=== PATIENT | male | born 1935 | race Caucasian/White ===

== ENCOUNTER → 2016-08-01 | Outpatient (CLI) | payer MEDICARE | LOC: M SMT 09:39 | PROVIDERS: ATTEND Urology | DX: Z85.46 Personal history of malignant neoplasm of prostate (principal) ==

== ENCOUNTER → 2016-12-07 | Outpatient (CLI) | payer MEDICARE | LOC: M SMT 10:40 | PROVIDERS: ATTEND Urology | DX: Z85.46 Personal history of malignant neoplasm of prostate (principal); E11.9 Type 2 diabetes mellitus without complications; R60.9 Edema, unspecified ==

== ENCOUNTER → 2016-12-07 | Outpatient (CLI) | payer MEDICARE ==
[2016-12-07 13:57] LABS: ALBUMIN 3.4 GM/DL (3.2-5.2); ALBUMIN/GLOBULIN RATIO 0.97 (1.00-1.93); BILIRUBIN,TOTAL 0.6 MG/DL (0.2-1.0); CALCIUM LEVEL 8.2 MG/DL (8.8-10.2); CREATININE FOR GFR 1.79 MG/DL (0.70-1.30); GLOMERULAR FILTRATION RATE 39.1 (>35); POTASSIUM SERUM 4.7 MEQ/L (3.5-5.1); TOTAL PROTEIN 6.9 GM/DL (6.4-8.2)
== END ==
LOC: M SMT 10:37
PROVIDERS: ATTEND Family Medicine
DX: R60.9 Edema, unspecified (principal); E11.9 Type 2 diabetes mellitus without complications

== ENCOUNTER → 2017-04-09 | Outpatient (CLI) | payer MEDICARE | LOC: M SMT 10:09 | PROVIDERS: ATTEND Urology | DX: Z08 Encounter for follow-up examination after completed treatment for malignant neoplasm (principal); Z85.46 Personal history of malignant neoplasm of prostate ==

== ENCOUNTER → 2017-04-13 | Outpatient (REF) | payer MEDICARE | LOC: M LAB REF 16:09 | PROVIDERS: ATTEND Physician Assistant | DX: L03.032 Cellulitis of left toe (principal) ==

== ENCOUNTER → 2017-06-27 | Outpatient (CLI) | payer MEDICARE ==
--- NOTE | 2017-06-30 12:24 | SLEEPCENT ---
DATE OF PROCEDURE: 06/27/2017 REFERRING PHYSICIAN: Rafael Long MD Nocturnal polysomnography was performed for retitration of pressure therapy in this patient with obstructive sleep apnea syndrome who has gained significant weight and has been found to have an abnormal nocturnal recording oximetry trace despite the use of CPAP. For testing, the patient was fit with a Cequint Simplus full face mask of medium size, 10 cm of water pressure was applied to the circuit and the lights were extinguished. 7 hours and 37 minutes of data were reviewed. There were 339 minutes of sleep identified. Sleep latency was short at 14 minutes. Rapid eye movement (REM) sleep was not achieved. Sleep architecture showed poor progression and some fragmentation. Overall sleep efficiency was 76%. The electrocardiogram showed what appeared to be atrial fibrillation with irregular irregularity and an average ventricular response rate of 52 beats per minute. EEG showed reasonably normal waveforms for awake and sleep. There was some increase in background activity. No focal events were identified. Also some increase in eye movement artifact, possibly medication related. Persistence of respiratory events prompted increases in CPAP pressure. The events were primarily hypopneic, but did have associated oxygen desaturations. Supplemental oxygen was added to address hypoventilatory oxygen desaturations. Best sleep is difficult to identify as the patient continued to experience hypopneic events despite CPAP at a pressure of 20. Reasonable palliation of respiratory events was however seen with a CPAP pressure of 20 and oxygen desaturations were not seen with supplemental oxygen at flow rate of 3 liters per minute. There were frequent limb events early in the study. Later in the test with increases in CPAP pressure, limb activity modulated and though the limb movement arousal index was fixed, there were few trains of events after adequate airway support was achieved. IMPRESSION: Obstructive sleep apnea syndrome (G47.33). RECOMMENDATION: Increase in CPAP to 20 cm with the addition of 3 liters of oxygen entrained through the circuit should be sufficient to minimize respiratory disruption and oxygen desaturation. Pending tolerance of this pressure, further adjustment may be necessary. A range of 18 to 20 appears reasonably acceptable.
== END ==
LOC: M SLEEP 19:25
PROVIDERS: ATTEND Nurse Practitioner Adult Health
DX: G47.33 Obstructive sleep apnea (adult) (pediatric) (principal)

== ENCOUNTER → 2017-09-18 | Outpatient (CLI) | payer MEDICARE ==
[2017-09-18 14:31] LABS: PROSTATIC SPECIFIC AG MONITOR 1.65 NG/ML (< 4.0)
== END ==
LOC: M SMT 10:32
DX: Z85.46 Personal history of malignant neoplasm of prostate (principal)

== ENCOUNTER → 2017-09-18 | Outpatient (CLI) | payer MEDICARE ==
[2017-09-18 14:32] LABS: ALBUMIN 3.4 GM/DL (3.2-5.2); ALBUMIN/GLOBULIN RATIO 0.97 (1.00-1.93); ALKALINE PHOSPHATASE 127 U/L (45-117); ALT/SGPT 19 U/L (12-78); ANION GAP 10 MEQ/L (8-16); AST/SGOT 8 U/L (7-37); BILIRUBIN,TOTAL 0.4 MG/DL (0.2-1.0); BLOOD UREA NITROGEN 27 MG/DL (7-18); CALCIUM LEVEL 9.1 MG/DL (8.8-10.2); CARBON DIOXIDE LEVEL 26 MEQ/L (21-32); CHLORIDE LEVEL 107 MEQ/L (98-107); CHOLESTEROL LEVEL 165 MG/DL (<200); CHOLESTEROL RISK RATIO 2.538 (<5); CREATININE FOR GFR 1.85 MG/DL (0.70-1.30); GLOMERULAR FILTRATION RATE 37.5 (>35); GLUCOSE, FASTING 169 MG/DL (70-100); HDL CHOLESTEROL 65 MG/DL (>40); LDL CHOLESTEROL 70.8 MG/DL (<100); NON-HDL-C 100 MG/DL; SODIUM LEVEL 143 MEQ/L (136-145); TOTAL PROTEIN 6.9 GM/DL (6.4-8.2); TRIGLYCERIDES LEVEL 146 MG/DL (<150); URIC ACID 7.7 MG/DL (3.5-7.2)
[2017-09-18 14:34] LABS: HEMATOCRIT 35.1 % (42.0-52.0); HEMOGLOBIN 10.5 g/dl (14.0-18.0); MEAN CORPUSCULAR HEMOGLOBIN 20.8 pg (27.0-33.0); MEAN CORPUSCULAR HGB CONC 29.9 g/dl (32.0-36.5); MEAN CORPUSCULAR VOLUME 69.6 fl (80.0-96.0); PLATELET COUNT, AUTOMATED 233 10^3/uL (150-450); RED BLOOD COUNT 5.04 10^6/uL (4.30-6.10); RED CELL DISTRIBUTION WIDTH 15.9 % (11.5-14.5); WHITE BLOOD COUNT 5.8 10^3/uL (4.0-10.0)
[2017-09-18 14:50] LABS: TOTAL 25(OH) VITAMIN D 20.9 NG/ML (30.0-100.0)
[2017-09-18 15:15] LABS: ESTIMATED AVERAGE GLUCOSE 180 MG/DL (60-110); HEMOGLOBIN A1c 7.9 %
== END ==
LOC: M SMT 10:38
DX: E55.9 Vitamin D deficiency, unspecified (principal); E11.9 Type 2 diabetes mellitus without complications; M10.9 Gout, unspecified; Z85.46 Personal history of malignant neoplasm of prostate
CPT/HCPCS: 84550

== ENCOUNTER → 2017-11-27 | Outpatient (CLI) | payer MEDICARE ==
[2017-11-27 14:37] LABS: ANION GAP 8 MEQ/L (8-16); BLOOD UREA NITROGEN 38 MG/DL (7-18); CALCIUM LEVEL 9.2 MG/DL (8.8-10.2); CARBON DIOXIDE LEVEL 26 MEQ/L (21-32); CHLORIDE LEVEL 106 MEQ/L (98-107); CREATININE FOR GFR 1.94 MG/DL (0.70-1.30); GLOMERULAR FILTRATION RATE 35.5 (>35); GLUCOSE, FASTING 206 MG/DL (70-100); SODIUM LEVEL 140 MEQ/L (136-145)
[2017-11-27 14:58] LABS: POTASSIUM SERUM 5.2 MEQ/L (3.5-5.1)
== END ==
LOC: M SMT 10:40
DX: R60.9 Edema, unspecified (principal)
CPT/HCPCS: 80048

== ENCOUNTER → 2018-04-04 | Outpatient (CLI) | payer MEDICARE ==
[2018-04-04 19:17] LABS: PROSTATIC SPECIFIC AG MONITOR 1.62 NG/ML (< 4.0)
== END ==
LOC: M SMT 10:41
DX: C61 Malignant neoplasm of prostate (principal)
CPT/HCPCS: 84153

== ENCOUNTER → 2018-04-29 | Outpatient (CLI) | payer MEDICARE ==
[2018-04-29 13:54] LABS: BASO # 0.1 10^3/uL (0.0-0.2); BASO % 0.9 % (0.0-1.0); EOS # 0.3 10^3/uL (0.0-0.50); EOS % 4.3 % (0.0-3.0); HEMATOCRIT 36.6 % (42.0-52.0); HEMOGLOBIN 10.9 g/dl (13.5-17.5); IMMATURE GRANULOCYTE % 0.3 % (0-3.0); LYMPH # 1.5 10^3/uL (1.5-4.5); LYMPH % 26.1 % (24.0-44.0); MEAN CORPUSCULAR HEMOGLOBIN 21.2 pg (27.0-33.0); MEAN CORPUSCULAR HGB CONC 29.8 g/dl (32.0-36.5); MEAN CORPUSCULAR VOLUME 71.3 fl (80.0-96.0); MONO # 0.5 10^3/uL (0.0-0.8); NEUTROPHILS # 3.4 10^3/uL (1.8-7.7); NEUTROPHILS % 59.4 % (36.0-66.0); PLATELET COUNT, AUTOMATED 172 10^3/uL (150-450); RED BLOOD COUNT 5.13 10^6/uL (4.30-6.10); RED CELL DISTRIBUTION WIDTH 15.8 % (11.5-14.5); WHITE BLOOD COUNT 5.8 10^3/uL (4.0-10.0)
[2018-04-29 14:27] LABS: ESTIMATED AVERAGE GLUCOSE 174 MG/DL (60-110); HEMOGLOBIN A1c 7.7 %
[2018-04-29 14:35] LABS: ALBUMIN 3.7 GM/DL (3.2-5.2); ALBUMIN/GLOBULIN RATIO 1.06 (1.00-1.93); ALKALINE PHOSPHATASE 98 U/L (45-117); ALT/SGPT 37 U/L (12-78); ANION GAP 10 MEQ/L (8-16); AST/SGOT 22 U/L (7-37); BILIRUBIN,TOTAL 0.4 MG/DL (0.2-1.0); BLOOD UREA NITROGEN 50 MG/DL (7-18); CALCIUM LEVEL 8.8 MG/DL (8.8-10.2); CARBON DIOXIDE LEVEL 17 MEQ/L (21-32); CHLORIDE LEVEL 114 MEQ/L (98-107); CHOLESTEROL LEVEL 203 MG/DL (<200); CHOLESTEROL RISK RATIO 3.383 (<5); CREATININE FOR GFR 2.27 MG/DL (0.70-1.30); GLOMERULAR FILTRATION RATE 29.6 (>35); GLUCOSE, FASTING 144 MG/DL (70-100); HDL CHOLESTEROL 60 MG/DL (>40); LDL CHOLESTEROL 112 MG/DL (<100); NON-HDL-C 143 MG/DL; POTASSIUM SERUM 5.5 MEQ/L (3.5-5.1); SODIUM LEVEL 141 MEQ/L (136-145); TOTAL PROTEIN 7.2 GM/DL (6.4-8.2); TRIGLYCERIDES LEVEL 153 MG/DL (<150)
[2018-04-29 15:05] LABS: TOTAL 25(OH) VITAMIN D 23.8 NG/ML (30.0-100.0)
== END ==
LOC: M SMT 09:25
DX: E55.9 Vitamin D deficiency, unspecified (principal); E11.9 Type 2 diabetes mellitus without complications; R60.9 Edema, unspecified; Z79.899 Other long term (current) drug therapy
CPT/HCPCS: 80053

== ENCOUNTER 2018-05-20 09:58 | Emergency (ER) | payer MEDICARE | END 2018-05-20 13:59 | disposition home or self-care (01) | LOC: M ED 09:58 | DX: S82.435A Nondisplaced oblique fracture of shaft of left fibula, initial encounter for closed fracture (principal); W19.XXXA Unspecified fall, initial encounter; Y92.511 Restaurant or cafe as the place of occurrence of the external cause; E11.9 Type 2 diabetes mellitus without complications; I10 Essential (primary) hypertension; E78.5 Hyperlipidemia, unspecified; D64.9 Anemia, unspecified; F32.9 Major depressive disorder, single episode, unspecified; Z85.46 Personal history of malignant neoplasm of prostate; F17.200 Nicotine dependence, unspecified, uncomplicated; Z88.0 Allergy status to penicillin; Z79.899 Other long term (current) drug therapy; Z79.84 Long term (current) use of oral hypoglycemic drugs; Z79.51 Long term (current) use of inhaled steroids | CPT/HCPCS: 73610 ==

== ENCOUNTER 2018-06-04 07:32 | Inpatient (IN) | payer MEDICARE ==
[2018-06-04] MEDS: NIFEdipine 30 MG XL TAB PO (09:00)
[2018-06-04] MEDS: VANCOMYCIN HCL 1,000 MG, VIAL MATE ADAPTER 1 EACH in D5W 250 ML IV ×2 (11:30→14:16)
[2018-06-04] MEDS: NS 1,000 ML IV ×2 (11:54→22:48)
[2018-06-04] MEDS ORDERED: GLUCOSE 4 GM CHEW TABLET PO (12:00)
[2018-06-04] MEDS ORDERED: DEXTROSE 50% 50 ML SYRINGE IV (12:00)
[2018-06-04] MEDS ORDERED: GLUCAGON FOR INJ 1 MG VIAL (J1610) SC (12:00)
[2018-06-04 12:19] LABS: HEMATOCRIT 32.8 % (42.0-52.0); HEMOGLOBIN 9.7 g/dl (13.5-17.5); MEAN CORPUSCULAR HEMOGLOBIN 21.1 pg (27.0-33.0); MEAN CORPUSCULAR HGB CONC 29.6 g/dl (32.0-36.5); MEAN CORPUSCULAR VOLUME 71.3 fl (80.0-96.0); PLATELET COUNT, AUTOMATED 163 10^3/uL (150-450); RED CELL DISTRIBUTION WIDTH 15.8 % (11.5-14.5); WHITE BLOOD COUNT 4.9 10^3/uL (4.0-10.0)
[2018-06-04 12:46] LABS: ANION GAP 8 MEQ/L (8-16); BLOOD UREA NITROGEN 28 MG/DL (7-18); CALCIUM LEVEL 8.7 MG/DL (8.8-10.2); CARBON DIOXIDE LEVEL 25 MEQ/L (21-32); CHLORIDE LEVEL 110 MEQ/L (98-107); CREATININE FOR GFR 1.73 MG/DL (0.70-1.30); GLOMERULAR FILTRATION RATE 40.5 (>35); GLUCOSE, FASTING 128 MG/DL (70-100); POTASSIUM SERUM 4.3 MEQ/L (3.5-5.1); SODIUM LEVEL 143 MEQ/L (136-145)
[2018-06-04] MEDS ORDERED: fentaNYL 100 MCG/2 ML INJECTION (J3010) As Ordered (15:30)
[2018-06-04] MEDS ORDERED: MIDAZOLAM INJ 2 MG/2 ML VIAL (J2250) As Ordered (15:30)
[2018-06-04] MEDS ORDERED: BUPIVACAINE/DEXTROSE 0.75% 2 ML AMP As Ordered (15:33)
[2018-06-04] MEDS: CLINDAMYCIN 600 MG/50 ML PREMIX BAG As Ordered (16:10)
[2018-06-04] MEDS: LR 1,000 ML IV (17:00)
[2018-06-04] MEDS ORDERED: ONDANSETRON 4MG/2ML VIAL (J2405) IV (17:00)
[2018-06-04] MEDS ORDERED: METOCLOPRAMIDE INJ 10MG/2ML VIAL (J2765) IV (17:00)
[2018-06-04] MEDS ORDERED: fentaNYL 100 MCG/2 ML INJECTION (J3010) IV (17:00)
[2018-06-04] MEDS ORDERED: FLEET ENEMA PR (17:00)
[2018-06-04] MEDS ORDERED: ACETAMINOPHEN TAB 650MG DOSE (2X325MG) PO (17:00)
[2018-06-04 17:04] LABS: BEDSIDE GLUCOSE 130 MG/DL (83-110)
[2018-06-04] MEDS ORDERED: PERCOCET 5MG/325MG TAB As Ordered (17:14)
[2018-06-04] MEDS: PERCOCET 5MG/325MG TAB PO (17:15)
[2018-06-04] MEDS: HumaLOG INSULIN (NovoLOG) PER UNIT SC ×2 (18:43→21:00)
[2018-06-04] MEDS: VENLAFAXINE **XR** 75MG CAPSULE PO (18:44)
[2018-06-04] MEDS: FLUoxetine 20 MG CAP PO (18:44)
[2018-06-04] MEDS: ENALAPRIL MALEATE 10 MG TAB PO (18:44)
[2018-06-04] MEDS: NORCO, ANEXSIA 5/325MG TABLET (HYDROcodone/ACETAMINOPHEN) PO ×2 (18:45→23:06)
[2018-06-04] MEDS: MORPHINE 4 MG/ML 1ML VIAL/SYRINGE (J2270) IV (19:35)
[2018-06-04 21:16] LABS: BEDSIDE GLUCOSE 144 MG/DL (83-110)
[2018-06-04] MEDS: TEMAZEPAM 15 MG CAP PO (22:47)
[2018-06-05] MEDS: VANCOMYCIN HCL 1,000 MG, VIAL MATE ADAPTER 1 EACH in D5W 250 ML IV ×4 (02:24→15:00)
[2018-06-05] MEDS: MORPHINE 4 MG/ML 1ML VIAL/SYRINGE (J2270) IV ×2 (02:26→09:53)
[2018-06-05 06:34] LABS: HEMATOCRIT 31.9 % (42.0-52.0); HEMOGLOBIN 9.3 g/dl (13.5-17.5); MEAN CORPUSCULAR HEMOGLOBIN 21.1 pg (27.0-33.0); MEAN CORPUSCULAR HGB CONC 29.2 g/dl (32.0-36.5); MEAN CORPUSCULAR VOLUME 72.5 fl (80.0-96.0); PLATELET COUNT, AUTOMATED 171 10^3/uL (150-450); RED CELL DISTRIBUTION WIDTH 15.6 % (11.5-14.5); WHITE BLOOD COUNT 6.8 10^3/uL (4.0-10.0)
[2018-06-05] MEDS: NORCO, ANEXSIA 5/325MG TABLET (HYDROcodone/ACETAMINOPHEN) PO (06:39)
[2018-06-05 06:57] LABS: ANION GAP 5 MEQ/L (8-16); BLOOD UREA NITROGEN 25 MG/DL (7-18); CALCIUM LEVEL 8.7 MG/DL (8.8-10.2); CARBON DIOXIDE LEVEL 28 MEQ/L (21-32); CHLORIDE LEVEL 106 MEQ/L (98-107); CREATININE FOR GFR 1.85 MG/DL (0.70-1.30); GLOMERULAR FILTRATION RATE 37.4 (>35); GLUCOSE, FASTING 185 MG/DL (70-100); POTASSIUM SERUM 4.4 MEQ/L (3.5-5.1); SODIUM LEVEL 139 MEQ/L (136-145)
[2018-06-05] MEDS: HumaLOG INSULIN (NovoLOG) PER UNIT SC ×4 (07:49→20:37)
[2018-06-05] MEDS: SPIRONOLACTONE 25 MG TAB PO ×2 (09:00→09:44)
[2018-06-05] MEDS: FUROSEMIDE 20 MG TAB PO ×2 (09:00→09:44)
[2018-06-05] MEDS: ENALAPRIL MALEATE 10 MG TAB PO (09:43)
[2018-06-05] MEDS: MOM 30ML SUSPENSION UDC PO (09:43)
[2018-06-05] MEDS: VENLAFAXINE **XR** 75MG CAPSULE PO (09:43)
[2018-06-05] MEDS: MIRALAX *UNIT DOSE* 17GM PACKET PO (09:43)
[2018-06-05] MEDS: FLUoxetine 20 MG CAP PO (09:44)
[2018-06-05] MEDS: SENOKOT S TAB PO ×2 (09:45→20:37)
[2018-06-05] MEDS: OMEPRAZOLE 20 MG CAP PO (09:45)
[2018-06-05] MEDS: NIFEdipine 30 MG XL TAB PO (11:00)
[2018-06-05 12:04] LABS: BEDSIDE GLUCOSE 152 MG/DL (83-110)
[2018-06-05] MEDS: IPRATROPIUM 0.5MG/ALBUTEROL 2.5MG INH SOL UD 3ML (DUONEB)(J7620) NEB (13:26)
[2018-06-05 16:45] LABS: BEDSIDE GLUCOSE 171 MG/DL (83-110)
[2018-06-05] MEDS: RIVAROXABAN 10 MG TAB (XARELTO) PO (17:18)
[2018-06-05 20:25] LABS: BEDSIDE GLUCOSE 163 MG/DL (83-110)
[2018-06-05] MEDS: TEMAZEPAM 15 MG CAP PO (20:38)
[2018-06-05] MEDS: ATORVASTATIN 20 MG TAB PO (20:38)
[2018-06-06 07:24] LABS: HEMATOCRIT 30.6 % (42.0-52.0); MEAN CORPUSCULAR HEMOGLOBIN 21.2 pg (27.0-33.0); MEAN CORPUSCULAR HGB CONC 29.4 g/dl (32.0-36.5); PLATELET COUNT, AUTOMATED 144 10^3/uL (150-450); RED BLOOD COUNT 4.25 10^6/uL (4.30-6.10); RED CELL DISTRIBUTION WIDTH 15.5 % (11.5-14.5); WHITE BLOOD COUNT 6.6 10^3/uL (4.0-10.0)
[2018-06-06 07:50] LABS: ANION GAP 6 MEQ/L (8-16); BLOOD UREA NITROGEN 30 MG/DL (7-18); CALCIUM LEVEL 8.6 MG/DL (8.8-10.2); CARBON DIOXIDE LEVEL 27 MEQ/L (21-32); CHLORIDE LEVEL 107 MEQ/L (98-107); GLOMERULAR FILTRATION RATE 32.3 (>35); GLUCOSE, FASTING 130 MG/DL (70-100); POTASSIUM SERUM 4.3 MEQ/L (3.5-5.1); SODIUM LEVEL 140 MEQ/L (136-145)
[2018-06-06] MEDS: SPIRONOLACTONE 25 MG TAB PO (08:36)
[2018-06-06] MEDS: ENALAPRIL MALEATE 10 MG TAB PO (08:36)
[2018-06-06] MEDS: FUROSEMIDE 20 MG TAB PO (08:37)
[2018-06-06] MEDS: NIFEdipine 30 MG XL TAB PO (08:37)
[2018-06-06] MEDS: HumaLOG INSULIN (NovoLOG) PER UNIT SC ×4 (08:37→21:00)
[2018-06-06] MEDS: SENOKOT S TAB PO ×2 (08:37→22:17)
[2018-06-06] MEDS: FLUoxetine 20 MG CAP PO (08:37)
[2018-06-06] MEDS: VENLAFAXINE **XR** 75MG CAPSULE PO (08:37)
[2018-06-06] MEDS: MOM 30ML SUSPENSION UDC PO (08:37)
[2018-06-06] MEDS: MIRALAX *UNIT DOSE* 17GM PACKET PO (08:38)
[2018-06-06 11:25] LABS: BEDSIDE GLUCOSE 114 MG/DL (83-110)
[2018-06-06] MEDS: NORCO, ANEXSIA 5/325MG TABLET (HYDROcodone/ACETAMINOPHEN) PO ×2 (11:34→22:16)
[2018-06-06 17:00] LABS: BEDSIDE GLUCOSE 173 MG/DL (83-110)
[2018-06-06] MEDS: RIVAROXABAN 10 MG TAB (XARELTO) PO (17:10)
[2018-06-06 21:04] LABS: BEDSIDE GLUCOSE 151 MG/DL (83-110)
[2018-06-06] MEDS: TEMAZEPAM 15 MG CAP PO (22:17)
[2018-06-07 06:39] LABS: HEMATOCRIT 29.5 % (42.0-52.0); HEMOGLOBIN 8.8 g/dl (13.5-17.5); MEAN CORPUSCULAR HEMOGLOBIN 21.1 pg (27.0-33.0); MEAN CORPUSCULAR HGB CONC 29.8 g/dl (32.0-36.5); MEAN CORPUSCULAR VOLUME 70.7 fl (80.0-96.0); PLATELET COUNT, AUTOMATED 137 10^3/uL (150-450); RED BLOOD COUNT 4.17 10^6/uL (4.30-6.10); RED CELL DISTRIBUTION WIDTH 15.5 % (11.5-14.5); WHITE BLOOD COUNT 6.2 10^3/uL (4.0-10.0)
[2018-06-07 06:57] LABS: ANION GAP 7 MEQ/L (8-16); BLOOD UREA NITROGEN 37 MG/DL (7-18); CARBON DIOXIDE LEVEL 26 MEQ/L (21-32); CHLORIDE LEVEL 107 MEQ/L (98-107); CREATININE FOR GFR 2.08 MG/DL (0.70-1.30); GLOMERULAR FILTRATION RATE 32.7 (>35); GLUCOSE, FASTING 127 MG/DL (70-100); POTASSIUM SERUM 4.8 MEQ/L (3.5-5.1); SODIUM LEVEL 140 MEQ/L (136-145)
[2018-06-07] MEDS: MOM 30ML SUSPENSION UDC PO (07:59)
[2018-06-07] MEDS: HumaLOG INSULIN (NovoLOG) PER UNIT SC ×4 (07:59→21:00)
[2018-06-07] MEDS: SENOKOT S TAB PO ×2 (08:00→21:46)
[2018-06-07] MEDS: FLUoxetine 20 MG CAP PO (08:00)
[2018-06-07] MEDS: VENLAFAXINE **XR** 75MG CAPSULE PO (08:00)
[2018-06-07] MEDS: OMEPRAZOLE 20 MG CAP PO (08:00)
[2018-06-07] MEDS: NIFEdipine 30 MG XL TAB PO (08:01)
[2018-06-07] MEDS: MIRALAX *UNIT DOSE* 17GM PACKET PO (08:01)
[2018-06-07 11:38] LABS: BEDSIDE GLUCOSE 142 MG/DL (83-110)
[2018-06-07] MEDS: NORCO, ANEXSIA 5/325MG TABLET (HYDROcodone/ACETAMINOPHEN) PO (16:44)
[2018-06-07 17:03] LABS: BEDSIDE GLUCOSE 196 MG/DL (83-110)
[2018-06-07] MEDS: RIVAROXABAN 10 MG TAB (XARELTO) PO (17:48)
[2018-06-07] MEDS: ATORVASTATIN 20 MG TAB PO (21:46)
[2018-06-07] MEDS: TEMAZEPAM 15 MG CAP PO (21:46)
[2018-06-08 02:26] LABS: BEDSIDE GLUCOSE 160 MG/DL (83-110)
[2018-06-08 06:58] LABS: HEMATOCRIT 32.1 % (42.0-52.0); HEMOGLOBIN 9.6 g/dl (13.5-17.5); MEAN CORPUSCULAR HEMOGLOBIN 21.1 pg (27.0-33.0); MEAN CORPUSCULAR HGB CONC 29.9 g/dl (32.0-36.5); MEAN CORPUSCULAR VOLUME 70.7 fl (80.0-96.0); PLATELET COUNT, AUTOMATED 206 10^3/uL (150-450); RED BLOOD COUNT 4.54 10^6/uL (4.30-6.10); RED CELL DISTRIBUTION WIDTH 15.3 % (11.5-14.5); WHITE BLOOD COUNT 5.3 10^3/uL (4.0-10.0)
[2018-06-08 07:19] LABS: ANION GAP 6 MEQ/L (8-16); BLOOD UREA NITROGEN 40 MG/DL (7-18); CALCIUM LEVEL 8.9 MG/DL (8.8-10.2); CARBON DIOXIDE LEVEL 25 MEQ/L (21-32); CHLORIDE LEVEL 109 MEQ/L (98-107); GLOMERULAR FILTRATION RATE 34.2 (>35); GLUCOSE, FASTING 136 MG/DL (70-100); POTASSIUM SERUM 4.5 MEQ/L (3.5-5.1); SODIUM LEVEL 140 MEQ/L (136-145)
[2018-06-08] MEDS: HumaLOG INSULIN (NovoLOG) PER UNIT SC ×4 (08:43→21:00)
[2018-06-08] MEDS: SENOKOT S TAB PO ×2 (08:44→21:00)
[2018-06-08] MEDS: NIFEdipine 30 MG XL TAB PO (08:44)
[2018-06-08] MEDS: VENLAFAXINE **XR** 75MG CAPSULE PO (08:44)
[2018-06-08] MEDS: FLUoxetine 20 MG CAP PO (08:44)
[2018-06-08] MEDS: MOM 30ML SUSPENSION UDC PO (09:00)
[2018-06-08] MEDS: MIRALAX *UNIT DOSE* 17GM PACKET PO (09:00)
[2018-06-08 11:32] LABS: BEDSIDE GLUCOSE 150 MG/DL (83-110)
[2018-06-08 17:14] LABS: BEDSIDE GLUCOSE 182 MG/DL (83-110)
[2018-06-08] MEDS: RIVAROXABAN 10 MG TAB (XARELTO) PO (18:11)
[2018-06-08 21:46] LABS: BEDSIDE GLUCOSE 157 MG/DL (83-110)
[2018-06-08] MEDS: TEMAZEPAM 15 MG CAP PO (23:35)
[2018-06-09 06:24] LABS: BEDSIDE GLUCOSE 135 MG/DL (83-110)
[2018-06-09 07:11] LABS: ANION GAP 7 MEQ/L (8-16); BLOOD UREA NITROGEN 38 MG/DL (7-18); CARBON DIOXIDE LEVEL 25 MEQ/L (21-32); CHLORIDE LEVEL 108 MEQ/L (98-107); CREATININE FOR GFR 1.83 MG/DL (0.70-1.30); GLOMERULAR FILTRATION RATE 37.9 (>35); GLUCOSE, FASTING 126 MG/DL (70-100); POTASSIUM SERUM 4.4 MEQ/L (3.5-5.1); SODIUM LEVEL 140 MEQ/L (136-145)
[2018-06-09] MEDS: SENOKOT S TAB PO ×2 (08:19→20:04)
[2018-06-09] MEDS: VENLAFAXINE **XR** 75MG CAPSULE PO (08:19)
[2018-06-09] MEDS: FLUoxetine 20 MG CAP PO (08:19)
[2018-06-09] MEDS: NIFEdipine 30 MG XL TAB PO (08:20)
[2018-06-09] MEDS: MIRALAX *UNIT DOSE* 17GM PACKET PO (08:20)
[2018-06-09] MEDS: MOM 30ML SUSPENSION UDC PO (08:20)
[2018-06-09] MEDS: HumaLOG INSULIN (NovoLOG) PER UNIT SC ×4 (08:21→20:09)
[2018-06-09 11:35] LABS: BEDSIDE GLUCOSE 168 MG/DL (83-110)
[2018-06-09 16:35] LABS: BEDSIDE GLUCOSE 198 MG/DL (83-110)
[2018-06-09] MEDS: RIVAROXABAN 10 MG TAB (XARELTO) PO (17:31)
[2018-06-09] MEDS: TEMAZEPAM 15 MG CAP PO (20:05)
[2018-06-09 20:10] LABS: BEDSIDE GLUCOSE 191 MG/DL (83-110)
[2018-06-10 06:06] LABS: BEDSIDE GLUCOSE 126 MG/DL (83-110)
[2018-06-10 06:26] LABS: HEMATOCRIT 29.3 % (42.0-52.0); HEMOGLOBIN 8.8 g/dl (13.5-17.5); MEAN CORPUSCULAR HEMOGLOBIN 20.7 pg (27.0-33.0); MEAN CORPUSCULAR VOLUME 68.8 fl (80.0-96.0); PLATELET COUNT, AUTOMATED 229 10^3/uL (150-450); RED BLOOD COUNT 4.26 10^6/uL (4.30-6.10); RED CELL DISTRIBUTION WIDTH 15.1 % (11.5-14.5); WHITE BLOOD COUNT 5.1 10^3/uL (4.0-10.0)
[2018-06-10 06:40] LABS: ANION GAP 6 MEQ/L (8-16); BLOOD UREA NITROGEN 36 MG/DL (7-18); CALCIUM LEVEL 8.6 MG/DL (8.8-10.2); CARBON DIOXIDE LEVEL 27 MEQ/L (21-32); CHLORIDE LEVEL 109 MEQ/L (98-107); CREATININE FOR GFR 1.74 MG/DL (0.70-1.30); GLOMERULAR FILTRATION RATE 40.2 (>35); GLUCOSE, FASTING 121 MG/DL (70-100); POTASSIUM SERUM 4.7 MEQ/L (3.5-5.1); SODIUM LEVEL 142 MEQ/L (136-145)
[2018-06-10] MEDS: VENLAFAXINE **XR** 75MG CAPSULE PO (08:01)
[2018-06-10] MEDS: NIFEdipine 30 MG XL TAB PO (08:01)
[2018-06-10] MEDS: MIRALAX *UNIT DOSE* 17GM PACKET PO (08:01)
[2018-06-10] MEDS: MOM 30ML SUSPENSION UDC PO ×2 (08:01→13:07)
[2018-06-10] MEDS: OMEPRAZOLE 20 MG CAP PO (08:01)
[2018-06-10] MEDS: FLUoxetine 20 MG CAP PO (08:01)
[2018-06-10] MEDS: SENOKOT S TAB PO ×2 (08:01→20:53)
[2018-06-10] MEDS: HumaLOG INSULIN (NovoLOG) PER UNIT SC ×4 (08:02→20:53)
[2018-06-10 11:34] LABS: BEDSIDE GLUCOSE 161 MG/DL (83-110)
[2018-06-10 16:48] LABS: BEDSIDE GLUCOSE 169 MG/DL (83-110)
[2018-06-10] MEDS: RIVAROXABAN 10 MG TAB (XARELTO) PO (17:00)
[2018-06-10 20:23] LABS: BEDSIDE GLUCOSE 183 MG/DL (83-110)
[2018-06-10] MEDS: TEMAZEPAM 15 MG CAP PO (20:53)
[2018-06-10] MEDS: ATORVASTATIN 20 MG TAB PO (20:53)
[2018-06-11 07:54] LABS: BEDSIDE GLUCOSE 144 MG/DL (83-110)
[2018-06-11] MEDS: VENLAFAXINE **XR** 75MG CAPSULE PO (07:59)
[2018-06-11] MEDS: FLUoxetine 20 MG CAP PO (07:59)
[2018-06-11] MEDS: SENOKOT S TAB PO ×2 (08:00→21:30)
[2018-06-11] MEDS: NIFEdipine 30 MG XL TAB PO (08:00)
[2018-06-11] MEDS: MOM 30ML SUSPENSION UDC PO ×2 (08:01→17:29)
[2018-06-11] MEDS: MIRALAX *UNIT DOSE* 17GM PACKET PO (08:01)
[2018-06-11] MEDS: HumaLOG INSULIN (NovoLOG) PER UNIT SC ×4 (08:01→21:00)
[2018-06-11 11:48] LABS: BEDSIDE GLUCOSE 136 MG/DL (83-110)
[2018-06-11 12:22] LABS: BEDSIDE GLUCOSE 143 MG/DL (83-110)
[2018-06-11 17:14] LABS: BEDSIDE GLUCOSE 136 MG/DL (83-110)
[2018-06-11] MEDS: RIVAROXABAN 10 MG TAB (XARELTO) PO (17:33)
[2018-06-11 20:24] LABS: BEDSIDE GLUCOSE 161 MG/DL (83-110)
[2018-06-12] MEDS: TEMAZEPAM 15 MG CAP PO (00:34)
[2018-06-12 03:08] LABS: BEDSIDE GLUCOSE 125 MG/DL (83-110)
[2018-06-12 06:48] LABS: BEDSIDE GLUCOSE 108 MG/DL (83-110)
[2018-06-12] MEDS: HumaLOG INSULIN (NovoLOG) PER UNIT SC ×2 (07:30→12:00)
[2018-06-12] MEDS: MIRALAX *UNIT DOSE* 17GM PACKET PO (09:00)
[2018-06-12 10:25] LABS: ANION GAP 5 MEQ/L (8-16); BLOOD UREA NITROGEN 31 MG/DL (7-18); CALCIUM LEVEL 8.5 MG/DL (8.8-10.2); CARBON DIOXIDE LEVEL 31 MEQ/L (21-32); CHLORIDE LEVEL 107 MEQ/L (98-107); CREATININE FOR GFR 1.77 MG/DL (0.70-1.30); GLOMERULAR FILTRATION RATE 39.4 (>35); GLUCOSE, FASTING 151 MG/DL (70-100); POTASSIUM SERUM 4.6 MEQ/L (3.5-5.1); SODIUM LEVEL 143 MEQ/L (136-145)
[2018-06-12] MEDS: SENOKOT S TAB PO (11:37)
[2018-06-12] MEDS: NIFEdipine 30 MG XL TAB PO (11:38)
[2018-06-12] MEDS: FLUoxetine 20 MG CAP PO (11:39)
[2018-06-12] MEDS: OMEPRAZOLE 20 MG CAP PO (11:40)
[2018-06-12] MEDS: VENLAFAXINE **XR** 75MG CAPSULE PO (11:41)
[2018-06-12] MEDS: MOM 30ML SUSPENSION UDC PO (11:41)
[2018-06-12 12:00] LABS: BEDSIDE GLUCOSE 161 MG/DL (83-110)
== END 2018-06-12 13:35 | DRG 493 ==
LOC: M MSPAV 07:32 → M MS5PR 18:00
PROC: 0QSK04Z Reposition Left Fibula with Internal Fixation Device, Open Approach (ICD-10-PCS; principal; 2018-06-04 07:30)
DX: S82.432A Displaced oblique fracture of shaft of left fibula, initial encounter for closed fracture (principal); Z68.43 Body mass index [BMI] 50.0-59.9, adult; E11.9 Type 2 diabetes mellitus without complications; I10 Essential (primary) hypertension; E78.5 Hyperlipidemia, unspecified; K21.9 Gastro-esophageal reflux disease without esophagitis; F17.290 Nicotine dependence, other tobacco product, uncomplicated; G47.33 Obstructive sleep apnea (adult) (pediatric); G47.00 Insomnia, unspecified; E55.9 Vitamin D deficiency, unspecified; F32.9 Major depressive disorder, single episode, unspecified; E66.01 Morbid (severe) obesity due to excess calories; Z79.84 Long term (current) use of oral hypoglycemic drugs; Z79.899 Other long term (current) drug therapy; Z88.0 Allergy status to penicillin; Z85.46 Personal history of malignant neoplasm of prostate; W19.XXXA Unspecified fall, initial encounter; Y92.511 Restaurant or cafe as the place of occurrence of the external cause

== ENCOUNTER → 2018-06-13 | Outpatient (REF) | DX: I48.91 Unspecified atrial fibrillation (principal) ==

== ENCOUNTER → 2018-06-18 | Outpatient (REF) | DX: M10.9 Gout, unspecified (principal) ==

== ENCOUNTER → 2018-06-18 | Outpatient (REF) ==
[2018-06-18 10:49] LABS: HEMATOCRIT 29.3 % (42.0-52.0); HEMOGLOBIN 8.8 g/dl (13.5-17.5); MEAN CORPUSCULAR HEMOGLOBIN 20.8 pg (27.0-33.0); MEAN CORPUSCULAR VOLUME 69.3 fl (80.0-96.0); PLATELET COUNT, AUTOMATED 257 10^3/uL (150-450); RED BLOOD COUNT 4.23 10^6/uL (4.30-6.10); RED CELL DISTRIBUTION WIDTH 15.5 % (11.5-14.5); WHITE BLOOD COUNT 6.2 10^3/uL (4.0-10.0)
[2018-06-18 10:57] LABS: ANION GAP 7 MEQ/L (8-16); BLOOD UREA NITROGEN 23 MG/DL (7-18); CALCIUM LEVEL 8.9 MG/DL (8.8-10.2); CARBON DIOXIDE LEVEL 26 MEQ/L (21-32); CHLORIDE LEVEL 106 MEQ/L (98-107); CREATININE FOR GFR 1.83 MG/DL (0.70-1.30); GLOMERULAR FILTRATION RATE 37.9 (>35); GLUCOSE, FASTING 157 MG/DL (70-100); IRON (FE) 47 UG/DL (65-175); PERCENT SATURATION 18.6 % (19.7-50.0); POTASSIUM SERUM 4.7 MEQ/L (3.5-5.1); SODIUM LEVEL 139 MEQ/L (136-145); TOTAL IRON BINDING CAPACITY 253 UG/DL (250-450)
[2018-06-18 12:38] LABS: URIC ACID 7.4 MG/DL (3.5-7.2)
== END ==
DX: I10 Essential (primary) hypertension (principal)

== ENCOUNTER → 2018-06-24 | Outpatient (REF) | DX: M79.641 Pain in right hand (principal) ==

== ENCOUNTER → 2018-06-25 | Outpatient (REF) ==
[2018-06-25 09:40] LABS: MEAN CORPUSCULAR HEMOGLOBIN 21.1 pg (27.0-33.0); MEAN CORPUSCULAR VOLUME 70.4 fl (80.0-96.0); PLATELET COUNT, AUTOMATED 277 10^3/uL (150-450); RED BLOOD COUNT 4.26 10^6/uL (4.30-6.10); RED CELL DISTRIBUTION WIDTH 16.5 % (11.5-14.5); WHITE BLOOD COUNT 7.6 10^3/uL (4.0-10.0)
[2018-06-25 10:13] LABS: ANION GAP 6 MEQ/L (8-16); BLOOD UREA NITROGEN 30 MG/DL (7-18); C REACTIVE PROTEIN QUANTITATIV < 0.30 MG/DL (0.00-0.30); CALCIUM LEVEL 8.4 MG/DL (8.8-10.2); CARBON DIOXIDE LEVEL 27 MEQ/L (21-32); CHLORIDE LEVEL 107 MEQ/L (98-107); CREATININE FOR GFR 1.74 MG/DL (0.70-1.30); GLOMERULAR FILTRATION RATE 40.2 (>35); GLUCOSE, FASTING 146 MG/DL (70-100); POTASSIUM SERUM 4.9 MEQ/L (3.5-5.1); SODIUM LEVEL 140 MEQ/L (136-145)
[2018-06-25 10:19] LABS: ERYTHROCYTE SEDIMENTATION RATE 42 mm/hr (0-20)
== END ==
DX: I10 Essential (primary) hypertension (principal)

== ENCOUNTER 2018-07-16 13:16 | Outpatient (CLI) | payer MEDICARE ==
[~2018-07-16] VITALS: Ht 177.8 cm; Wt 175.7 kg
[~2018-07-16 13:16] MED LIST: ACETAMINOPHEN TAB 650MG DOSE (2X325MG) PO SCH; ATOR80TA59 PO; DRIS50003 PO; ENAL20TA PO; FLUO20CA19 PO; FURO20TA2 PO; METF500T4 PO; NIFE60TA40 PO; OMEP20CA3 PO; PERC5TAB12 PO; SPIR-10 PO; SYMBICORT; TEMA30CA PO; TRIA0.1L; VENL75CA2 PO; VITA50005; diphenhydrAMINE 25 MG CAP PO SCH
[2018-07-16 13:25] VITALS: BP 158/70
== END 2018-07-16 22:45 ==
LOC: M OPCLI4PV 13:16 → M MSPAV 13:27 → M OPCLI4PV 22:45
DX: D64.9 Anemia, unspecified (principal)

== ENCOUNTER → 2018-07-16 | Outpatient (REF) ==
[2018-07-16 09:41] LABS: HEMATOCRIT 26.2 % (42.0-52.0); HEMOGLOBIN 7.6 g/dl (13.5-17.5); MEAN CORPUSCULAR HEMOGLOBIN 20.2 pg (27.0-33.0); MEAN CORPUSCULAR VOLUME 69.5 fl (80.0-96.0); PLATELET COUNT, AUTOMATED 310 10^3/uL (150-450); RED BLOOD COUNT 3.77 10^6/uL (4.30-6.10); RED CELL DISTRIBUTION WIDTH 15.9 % (11.5-14.5); WHITE BLOOD COUNT 5.6 10^3/uL (4.0-10.0)
[2018-07-16 10:08] LABS: ANION GAP 9 MEQ/L (8-16); BLOOD UREA NITROGEN 28 MG/DL (7-18); CALCIUM LEVEL 7.9 MG/DL (8.8-10.2); CARBON DIOXIDE LEVEL 25 MEQ/L (21-32); CHLORIDE LEVEL 107 MEQ/L (98-107); CREATININE FOR GFR 1.92 MG/DL (0.70-1.30); GLOMERULAR FILTRATION RATE 35.9 (>35); GLUCOSE, FASTING 118 MG/DL (70-100); POTASSIUM SERUM 5.1 MEQ/L (3.5-5.1); SODIUM LEVEL 141 MEQ/L (136-145)
[2018-07-16 18:04] LABS: IMMEDIATE SPIN CROSSMATCH 1 2
== END ==
DX: I10 Essential (primary) hypertension (principal)

== ENCOUNTER → 2018-07-17 | Outpatient (REF) | payer MEDICARE ==
[~2018-07-17] MED LIST changes: -ACETAMINOPHEN TAB 650MG DOSE (2X325MG) PO SCH; -diphenhydrAMINE 25 MG CAP PO SCH
[2018-07-17 09:17] LABS: HEMATOCRIT 30.6 % (42.0-52.0); HEMOGLOBIN 9.3 g/dl (13.5-17.5); MEAN CORPUSCULAR HEMOGLOBIN 21.5 pg (27.0-33.0); MEAN CORPUSCULAR HGB CONC 30.4 g/dl (32.0-36.5); MEAN CORPUSCULAR VOLUME 70.8 fl (80.0-96.0); PLATELET COUNT, AUTOMATED 341 10^3/uL (150-450); RED BLOOD COUNT 4.32 10^6/uL (4.30-6.10); WHITE BLOOD COUNT 6.2 10^3/uL (4.0-10.0)
== END ==
DX: D64.9 Anemia, unspecified (principal)

== ENCOUNTER → 2018-07-24 | Outpatient (REF) | payer MEDICARE ==
[2018-07-24 10:00] LABS: HEMATOCRIT 32.3 % (42.0-52.0); HEMOGLOBIN 9.6 g/dl (13.5-17.5); MEAN CORPUSCULAR HEMOGLOBIN 21.6 pg (27.0-33.0); MEAN CORPUSCULAR HGB CONC 29.7 g/dl (32.0-36.5); MEAN CORPUSCULAR VOLUME 72.6 fl (80.0-96.0); PLATELET COUNT, AUTOMATED 420 10^3/uL (150-450); RED BLOOD COUNT 4.45 10^6/uL (4.30-6.10); WHITE BLOOD COUNT 7.3 10^3/uL (4.0-10.0)
== END ==
DX: D64.9 Anemia, unspecified (principal)

== ENCOUNTER → 2018-07-27 | Outpatient (REF) | payer MEDICARE | DX: D64.9 Anemia, unspecified (principal) ==

== ENCOUNTER → 2018-07-28 | Outpatient (REF) | payer MEDICARE | DX: D64.9 Anemia, unspecified (principal) ==

== ENCOUNTER → 2018-07-31 | Outpatient (REF) ==
[2018-07-31 11:36] LABS: HEMATOCRIT 31.9 % (42.0-52.0); HEMOGLOBIN 9.3 g/dl (13.5-17.5); MEAN CORPUSCULAR HEMOGLOBIN 21.2 pg (27.0-33.0); MEAN CORPUSCULAR HGB CONC 29.2 g/dl (32.0-36.5); MEAN CORPUSCULAR VOLUME 72.8 fl (80.0-96.0); PLATELET COUNT, AUTOMATED 255 10^3/uL (150-450); RED BLOOD COUNT 4.38 10^6/uL (4.30-6.10); WHITE BLOOD COUNT 5.5 10^3/uL (4.0-10.0)
== END ==
PROVIDERS: ATTEND Physician Assistant
DX: D64.9 Anemia, unspecified (principal)

== ENCOUNTER → 2018-08-06 | Outpatient (REF) | payer MEDICARE ==
[2018-08-06 10:01] LABS: HEMATOCRIT 31.4 % (42.0-52.0); HEMOGLOBIN 9.3 g/dl (13.5-17.5); MEAN CORPUSCULAR HEMOGLOBIN 21.5 pg (27.0-33.0); MEAN CORPUSCULAR HGB CONC 29.6 g/dl (32.0-36.5); MEAN CORPUSCULAR VOLUME 72.5 fl (80.0-96.0); PLATELET COUNT, AUTOMATED 235 10^3/uL (150-450); RED BLOOD COUNT 4.33 10^6/uL (4.30-6.10); WHITE BLOOD COUNT 6.5 10^3/uL (4.0-10.0)
== END ==
PROVIDERS: ATTEND Physician Assistant
DX: I10 Essential (primary) hypertension (principal)

== ENCOUNTER → 2018-08-13 | Outpatient (REF) | payer MEDICARE ==
[2018-08-13 10:07] LABS: HEMATOCRIT 31.5 % (42.0-52.0); HEMOGLOBIN 9.3 g/dl (13.5-17.5); MEAN CORPUSCULAR HEMOGLOBIN 21.4 pg (27.0-33.0); MEAN CORPUSCULAR HGB CONC 29.5 g/dl (32.0-36.5); MEAN CORPUSCULAR VOLUME 72.6 fl (80.0-96.0); PLATELET COUNT, AUTOMATED 224 10^3/uL (150-450); RED BLOOD COUNT 4.34 10^6/uL (4.30-6.10); WHITE BLOOD COUNT 5.4 10^3/uL (4.0-10.0)
[2018-08-13 10:27] LABS: CALCIUM LEVEL 8.5 MG/DL (8.8-10.2); CREATININE FOR GFR 1.76 MG/DL (0.70-1.30); GLOMERULAR FILTRATION RATE 39.7 (>35); POTASSIUM SERUM 4.9 MEQ/L (3.5-5.1)
== END ==
PROVIDERS: ATTEND Physician Assistant
DX: I10 Essential (primary) hypertension (principal)

== ENCOUNTER → 2018-08-20 | Outpatient (REF) ==
[2018-08-20 09:11] LABS: HEMATOCRIT 30.6 % (42.0-52.0); HEMOGLOBIN 9.1 g/dl (13.5-17.5); MEAN CORPUSCULAR HEMOGLOBIN 21.5 pg (27.0-33.0); MEAN CORPUSCULAR HGB CONC 29.7 g/dl (32.0-36.5); MEAN CORPUSCULAR VOLUME 72.3 fl (80.0-96.0); PLATELET COUNT, AUTOMATED 216 10^3/uL (150-450); RED BLOOD COUNT 4.23 10^6/uL (4.30-6.10); WHITE BLOOD COUNT 5.1 10^3/uL (4.0-10.0)
== END ==
DX: I10 Essential (primary) hypertension (principal)

== ENCOUNTER → 2018-08-21 | Outpatient (CLI) | payer MEDICARE ==
--- NOTE | 2018-08-21 14:48 | REP ---
Duplex extremity venous ultrasound: Right lower extremity osvaldo History: Right leg edema. Findings: The deep veins are anechoic and fully compressible from the groin to the popliteal fossa in the right lower extremity. Color flow imaging is homogeneous. Spectral Doppler interrogation demonstrates intact respiratory variation in flow and normal manual augmentation of flow. There is no evidence of deep vein thrombosis. Impression: Negative right lower extremity duplex venous ultrasound. No evidence of deep vein thrombosis. Electronically Signed by Eric Colon MD 08/21/2018 02:39 P
== END ==
LOC: M RAD 13:05
PROVIDERS: ATTEND Physician Assistant
DX: I89.0 Lymphedema, not elsewhere classified (principal); M79.89 Other specified soft tissue disorders

== ENCOUNTER → 2018-08-27 | Outpatient (REF) ==
[2018-08-27 09:05] LABS: HEMATOCRIT 31.3 % (42.0-52.0); HEMOGLOBIN 9.3 g/dl (13.5-17.5); MEAN CORPUSCULAR HGB CONC 29.7 g/dl (32.0-36.5); MEAN CORPUSCULAR VOLUME 70.7 fl (80.0-96.0); PLATELET COUNT, AUTOMATED 233 10^3/uL (150-450); RED BLOOD COUNT 4.43 10^6/uL (4.30-6.10); WHITE BLOOD COUNT 5.3 10^3/uL (4.0-10.0)
[2018-08-27 09:32] LABS: CALCIUM LEVEL 8.6 MG/DL (8.8-10.2); CREATININE FOR GFR 1.76 MG/DL (0.70-1.30); GLOMERULAR FILTRATION RATE 39.7 (>35); POTASSIUM SERUM 4.3 MEQ/L (3.5-5.1)
== END ==
DX: N18.9 Chronic kidney disease, unspecified (principal)

== ENCOUNTER → 2018-10-29 | Outpatient (CLI) | payer MEDICARE ==
[~2018-10-29] MED LIST changes: -TRIA0.1L; +TRIA2LOT
== END ==
LOC: M SMT 13:44
PROVIDERS: ATTEND Urology
DX: C61 Malignant neoplasm of prostate (principal)

== ENCOUNTER → 2018-11-18 | Outpatient (CLI) | payer MEDICARE ==
[2018-11-18 13:56] LABS: BASO % 0.5 % (0.0-1.0); EOS # 0.2 10^3/uL (0.0-0.50); EOS % 2.7 % (0.0-3.0); HEMATOCRIT 35.5 % (42.0-52.0); HEMOGLOBIN 10.6 g/dl (13.5-17.5); LYMPH # 1.5 10^3/uL (1.5-4.5); LYMPH % 22.9 % (24.0-44.0); MEAN CORPUSCULAR HEMOGLOBIN 20.8 pg (27.0-33.0); MEAN CORPUSCULAR HGB CONC 29.9 g/dl (32.0-36.5); MEAN CORPUSCULAR VOLUME 69.6 fl (80.0-96.0); MONO # 0.6 10^3/uL (0.0-0.8); MONO % 8.7 % (0.0-5.0); NEUTROPHILS # 4.3 10^3/uL (1.8-7.7); NEUTROPHILS % 64.7 % (36.0-66.0); PLATELET COUNT, AUTOMATED 192 10^3/uL (150-450); WHITE BLOOD COUNT 6.7 10^3/uL (4.0-10.0)
[2018-11-18 13:58] LABS: ALBUMIN 3.6 GM/DL (3.2-5.2); BILIRUBIN,TOTAL 0.6 MG/DL (0.2-1.0); CALCIUM LEVEL 8.9 MG/DL (8.8-10.2); CREATININE FOR GFR 1.87 MG/DL (0.70-1.30); POTASSIUM SERUM 4.5 MEQ/L (3.5-5.1); TOTAL PROTEIN 6.7 GM/DL (6.4-8.2)
== END ==
LOC: M SMT 10:46
PROVIDERS: ATTEND Family Medicine
DX: R60.9 Edema, unspecified (principal)

== ENCOUNTER → 2019-04-29 | Outpatient (CLI) | payer MEDICARE ==
[~2019-04-29] MED LIST changes: +METF-791 PO; -METF500T4 PO; -OMEP20CA3 PO; +OMEP20CA4 PO
[2019-04-29 18:11] LABS: ALBUMIN 3.3 GM/DL (3.2-5.2); BILIRUBIN,TOTAL 0.5 MG/DL (0.2-1.0); CALCIUM LEVEL 8.9 MG/DL (8.8-10.2); CREATININE FOR GFR 1.97 MG/DL (0.70-1.30); GLOMERULAR FILTRATION RATE 34.7 (>35); POTASSIUM SERUM 5.1 MEQ/L (3.5-5.1); TOTAL PROTEIN 7.1 GM/DL (6.4-8.2)
[2019-04-29 18:53] LABS: HEMOGLOBIN A1c 7.1 %
== END ==
LOC: M SMT 13:02
PROVIDERS: ATTEND Family Medicine
DX: E11.9 Type 2 diabetes mellitus without complications (principal); R60.9 Edema, unspecified

== ENCOUNTER → 2019-04-29 | Outpatient (CLI) | payer MEDICARE | LOC: M SMT 13:00 | PROVIDERS: ATTEND Urology | DX: C61 Malignant neoplasm of prostate (principal) ==

== ENCOUNTER 2019-09-14 22:02 | Inpatient (IN) | payer MEDICARE, BC ==
[~2019-09-14] VITALS: Ht 175.3 cm; Wt 170.7 kg
[~2019-09-14 22:02] MED LIST changes: -FLUO20CA19 PO; +FLUO20CA22 PO; +OMEP1CAP73 PO; -OMEP20CA4 PO
[2019-09-14] MEDS: IPRATROPIUM 0.5MG/ALBUTEROL 2.5MG INH SOL UD 3ML (DUONEB)(J7620) NEB PRN ×3 (22:13→22:39)
[2019-09-14 22:26] LABS: BASO # 0.1 10^3/uL (0.0-0.2); BASO % 0.6 % (0.0-1.0); EOS # 0.1 10^3/uL (0.0-0.5); HEMATOCRIT 36.6 % (42.0-52.0); HEMOGLOBIN 11.2 g/dl (13.5-17.5); LYMPH # 2.6 10^3/uL (1.5-5.0); LYMPH % 17.5 % (24.0-44.0); MEAN CORPUSCULAR HEMOGLOBIN 21.5 pg (27.0-33.0); MEAN CORPUSCULAR HGB CONC 30.6 g/dl (32.0-36.5); MEAN CORPUSCULAR VOLUME 70.1 fl (80.0-96.0); MONO # 1.5 10^3/uL (0.0-0.8); MONO % 10.1 % (0.0-5.0); NEUTROPHILS # 10.3 10^3/uL (1.5-8.5); NEUTROPHILS % 70.5 % (36.0-66.0); PLATELET COUNT, AUTOMATED 277 10^3/uL (150-450); RED BLOOD COUNT 5.22 10^6/uL (4.30-6.10); WHITE BLOOD COUNT 14.7 10^3/uL (4.0-10.0)
[2019-09-14 23:03] LABS: CK-MB VALUE MASS 5.1 NG/ML (<3.6); CREATININE FOR GFR 2.71 MG/DL (0.70-1.30); MB/CK RELATIVE INDEX 2.9 (< OR =4); POTASSIUM SERUM 4.9 MEQ/L (3.5-5.1); TROPONIN I 2.54 NG/ML (< 0.10)
[2019-09-14] MEDS ORDERED: HEPARIN DRIP 25,000 UNITS in IV 1 EA IV SCH (23:25)
[2019-09-14] MEDS ORDERED: ASPIRIN 81 MG CHEW TABLET PO ONE (23:30)
[2019-09-14] MEDS ORDERED: NITROGLYCERIN 2% OINT 1 GM *U/D* PKT TOP ONE (23:30)
[2019-09-14] MEDS ORDERED: HEPARIN SOD (PORCINE) 5000 UNITS/ML VIAL (J1644 PER 1000UNITS) IV ONE (23:30)
[2019-09-14] MEDS ORDERED: FUROSEMIDE 40 MG/4 ML VIAL (J1940) IV ONE (23:30)
[2019-09-14] MEDS ORDERED: CLOPIDOGREL 300 MG TAB (PLAVIX) PO ONE (23:30)
[2019-09-14 23:41] LABS: INR 1.39; PROTHROMBIN TIME 16.8 SECONDS (11.8-14.0)
[2019-09-14 23:42] LABS: PARTIAL THROMBOPLASTIN TIME 39.1 SECONDS (25.0-38.4)
[2019-09-15] VITALS (43 sets, daily range): BP systolic 83–143; BP diastolic 46–91; O2SAT 95
[2019-09-15] MEDS ORDERED: NITROGLYCERIN 0.4 MG SUBL TABLET SL PRN (00:15)
[2019-09-15] MEDS ORDERED: GLUCOSE 4 GM CHEW TABLET PO PRN (00:30)
[2019-09-15] MEDS ORDERED: GLUCAGON FOR INJ 1 MG VIAL (J1610) SC PRN (00:30)
[2019-09-15] MEDS ORDERED: DEXTROSE 50% 50 ML SYRINGE IV PRN (00:30)
[2019-09-15] MEDS ORDERED: XARE20TA PO (00:40)
[2019-09-15] MEDS ORDERED: CEROTAB PO (00:40)
[2019-09-15] MEDS ORDERED: SITA50TAB PO (00:40)
[2019-09-15] MEDS ORDERED: VITA50005 PO (00:40)
[2019-09-15] MEDS ORDERED: FERR1TAB8 PO (00:40)
[2019-09-15] MEDS ORDERED: ENAL20TA PO (00:40)
--- NOTE | 2019-09-15 00:44 | HPEPDOC ---
General Date of Admission Sep 15, 2019 at 00:13 Date of Service: Sep 15, 2019 Chief Complaint The patient is a 84-year-old male admitted with a reason for visit of Chf, Nstemi, Acute Resp Failure W. Hypoxia. Source: Patient Exam Limitations: No limitations Timing/Duration: Day(s) Severity: Moderate Associated Symptoms: Shortness of breath History of Present Illness Patient is 84 years old male with past medical history of hypertension, CHF, morbid obesity, obstructive sleep apnea presented hospital with increased shortness of breath. Patient stated for past few days he developed progressive shortness of breath with increased orthopnea and leg swelling. Also patient complains of substernal chest pain 56 out of 10, lasted 20 minutes, intermittent with no radiation Of note, patient is not compliant to his diet. In the Emergency room patient was found to have elevated BNP of 14,000, troponin of 2.5, EKG showed new onset of atrial fibrillation. Patient refused transfer to [place] for possible cardiac intervention. Chest x-ray showed increased vascular markings with bilateral pleural effusion. Patient denied fever, chills, nausea, vomiting, abdominal pain, diarrhea or dysuria Home Medications Scheduled Atorvastatin Calcium (Atorvastatin Calcium) 80 Mg Tab, 80 MG PO 3XW, (Reported) SUN,SUN,SUN Enalapril Maleate (Enalapril Maleate) 20 Mg Tablet, 20 MG PO DAILY, (Reported) Ergocalciferol (Vitamin D2) (Vitamin D2) 50,000 Units Cap, 50,000 UNITS PO Q2WK, (Reported) Ferrous Sulfate (Ferrous Sulfate) 325 Mg Tablet, 325 MG PO DAILY, (Reported) Fluoxetine Hcl (Fluoxetine HCl) 20 Mg Cap, 20 MG PO DAILY, (Reported) Multivitamin/Iron/Folic Acid (Cerovite Advanced Form Tab) 1 Each Tablet, 1 TAB PO DAILY, (Reported) Omeprazole (Omeprazole) 20 Mg Cap, 20 MG PO DAILY, (Reported) Rivaroxaban (Xarelto) 20 Mg Tablet, 20 MG PO DAILY, (Reported) Sitagliptin (Januvia) 50 Mg Tablet, 50 MG PO DAILY, (Reported) Spironolactone (Spironolactone) 25 Mg Tab, 50 MG PO DAILY, (Reported) Temazepam (Temazepam) 30 Mg Cap, 60 MG PO QHS, (Reported) Venlafaxine HCl (Venlafaxine HCl ER) 75 Mg Cap, 75 MG PO DAILY, (Reported) Allergies Coded Allergies: Penicillins (Verified Allergy, Unknown, 09/14/19) Past Medical History Medical History PROSTATE CANCER HEPATITIS HYPERTENSION DEPRESSION/ANXIETY SLEEP APNEA Surgical History PROSTATE BIOPSY HERNIATED DISK REPAIR Family History FATHER: , HARDENING OF THE ARTERIES MOTHER: , STOMACH CANCER SIBLINGS: , LUNG CANCER NO HISTORY OF BLADDER, KIDNEY , OR PROSTATE CANCER. Social History * Smoker: current smoker Alcohol: Denies Drugs: denies A-FIB/CHADSVASC A-FIB History Current/History of A-Fib/PAF?: No Current PO Anticoag Therapy: Yes Review of Systems Constitutional: Denies: Chills Eyes: Denies: Pain, Vision change ENT: Denies: Head Aches Skin: Denies: Rash, Lesions Pulmonary: Reports: Dyspnea Cardiovascular: Reports: Chest Pain, Orthopnea, Paroxysmal Noc. Dyspnea, Edema Gastrointestinal: Denies: Nausea Genitourinary: Denies: Dysuria Hematologic: Denies: Bruising, Bleeding Excessively Endocrine: Denies: Polydipsia Musculoskeletal: Denies: Neck Pain, Back Pain Neurological: Denies: Weakness Psych: Reports: Mood Normal Physical Examination General Exam: Positive: Alert, Cooperative Eye Exam: Positive: PERRLA ENT Exam: Positive: Atraumatic Neck Exam: Positive: Supple, JVD Chest Exam: Positive: Clear to auscultation Heart Exam: Positive: Irregular Rhythm Telemetry: Positive: Atrial fibrillation Abdomen Exam: Positive: Normal bowel sounds Extremity Exam: Positive: Clubbing; Negative: Cyanosis Skin Exam: Positive: Nl turgor and temperature Neuro Exam: Positive: Strength at 5/5 X4 ext, Cranial Nerves 3-12 NL Vital Signs Vital Signs Date Time Temp Pulse Resp B/P (MAP) Pulse Ox O2 Delivery O2 Flow Rate FiO2 09/15/19 00:18 174/87 09/14/19 23:15 101 97 09/14/19 23:15 34 NIPPV (BIPAP/CPAP) 45 09/14/19 22:13 97.1 Laboratory Data Labs 24H Laboratory Tests 2 09/14/19 22:17: Immature Granulocyte % (Auto) 0.3, Neutrophils (%) (Auto) 70.5H, Lymphocytes (%) (Auto) 17.5L, Monocytes (%) (Auto) 10.1H, Eosinophils (%) (Auto) 1.0, Basophils (%) (Auto) 0.6, Neutrophils # (Auto) 10.3H, Lymphocytes # (Auto) 2.6, Monocytes # (Auto) 1.5H, Eosinophils # (Auto) 0.1, Basophils # (Auto) 0.1, Nucleated Red Blood Cells % (auto) 0.0, Prothrombin Time 16.8H, Prothromb Time International Ratio 1.39, Activated Partial Thromboplast Time 39.1H, Anion Gap 11, Glomerular Filtration Rate 24.0L, Calcium Level 9.0, Total Creatine Kinase 176, Creatine Kinase MB 5.1H, Creatine Kinase MB Relative Index 2.90, Troponin I 2.54*H, LE-Jko-A-Type Natriuretic Peptide [id number] 09/14/19 22:48: POC pH (Misc Panel) 7.313L, POC Base Excess (Misc Panel) -6.0L, POC Saturated Percent O2 (Misc) 94L, POC pO2 (Misc Panel) 76.0L, POC pCO2 (Misc Panel) 40.3, POC HCO3 (Misc Panel) 20.4L, POC Total CO2 (Misc Panel) 22.0L 09/15/19 00:15: POC pH (Misc Panel) 7.387, POC Base Excess (Misc Panel) -4.0L, POC Saturated Percent O2 (Misc) 96, POC pO2 (Misc Panel) 78.0L, POC pCO2 (Misc Panel) 34.3L, POC HCO3 (Misc Panel) 20.8L, POC Total CO2 (Misc Panel) 22.0L CBC/BMP Laboratory Tests 09/14/19 22:17 Microbiology Microbiology 09/14/19 Respiratory Virus Panel (PCR) (KRISTIN), Received Pending 09/14/19 Blood Culture, Received Pending Assessment/Plan Patient is 84 years old male with past medical history of hypertension, CHF, morbid obesity, obstructive sleep apnea presented hospital with increased shortness of breath. Patient stated for past few days he developed progressive s hortness of breath with increased orthopnea and leg swelling. Also patient complains of substernal chest pain 56 out of 10, lasted 20 minutes, intermittent with no radiation Of note, patient is not compliant to his diet. Emergency room patient was found to have elevated BNP of 14,000, troponin of 2.5, EKG showed new onset of atrial fibrillation. Patient refused transfer to [place] for possible cardiac intervention. Chest x-ray showed increased vascular markings with bilateral pleural effusion Problems (1) Acute respiratory failure with hypoxia Status: Acute Problem Text: Most likely secondary to acute CHF exacerbation superimposed with acute coronary syndrome Continue BiPAP, continue to monitor ABG (2) CHF (congestive heart failure) Status: Acute Problem Text: Multifactorial, Most likely secondary to acute coronary syndrome and dietary indiscretion Echo I's and O's Lasix IV Fluid restriction to 1500 mL (3) NSTEMI (non-ST elevated myocardial infarction) Status: Acute Problem Text: Patient developed new onset of atrial fibrillation Troponin significantly elevated 2.5, continue to monitor Patient refused transfer to [facility] for possible cardiac intervention Heparin drip Beta sarah, I discontinued nifedipine Aspirin Atorvastatin I will hold lisinopril due to MICHELA Plavix Consider transit planning manager consult in the morning (4) Diabetes mellitus Status: Chronic Problem Text: Diabetes diet Insulin sliding scale (5) MICHELA (acute kidney injury) Status: Acute Problem Text: Most likely prerenal secondary to acute CHF Continue to monitor Plan / VTE VTE Prophylaxis Ordered?: Yes ALMA PATINO DO Sep 15, 2019 00:43
[2019-09-15] MEDS ORDERED: PATIENT COMMENTS (00:49)
[2019-09-15] MEDS: HumaLOG INSULIN (NovoLOG) PER UNIT SC SCH ×5 (02:30→20:26)
[2019-09-15] MEDS: METOPROLOL TART 25 MG TABLET PO SCH ×3 (02:34→20:26)
[2019-09-15] MEDS: ATORVASTATIN 20 MG TAB PO SCH ×2 (02:34→20:26)
[2019-09-15 07:12] LABS: TROPONIN I 12.1 NG/ML (< 0.10)
[2019-09-15 07:52] LABS: BASO % 0.2 % (0.0-1.0); HEMATOCRIT 33.7 % (42.0-52.0); HEMOGLOBIN 10.4 g/dl (13.5-17.5); LYMPH # 0.3 10^3/uL (1.5-5.0); MEAN CORPUSCULAR HEMOGLOBIN 21.1 pg (27.0-33.0); MEAN CORPUSCULAR HGB CONC 30.9 g/dl (32.0-36.5); MEAN CORPUSCULAR VOLUME 68.4 fl (80.0-96.0); MONO # 0.3 10^3/uL (0.0-0.8); MONO % 3.1 % (0.0-5.0); NEUTROPHILS # 8.1 10^3/uL (1.5-8.5); NEUTROPHILS % 93.2 % (36.0-66.0); PLATELET COUNT, AUTOMATED 187 10^3/uL (150-450); RED BLOOD COUNT 4.93 10^6/uL (4.30-6.10); WHITE BLOOD COUNT 8.7 10^3/uL (4.0-10.0)
--- NOTE | 2019-09-15 07:53 | REP ---
Clinical: Shortness of breath. Comparison: 06/04/2018. Findings: Cardiomegaly with perihilar and lower lobe opacities as well as indistinct pulmonary vasculature most compatible with CHF/pulmonary edema. No pneumothorax. Skeletal structures intact. Impression: Findings suggest cardiomegaly with CHF/pulmonary edema. Electronically Signed by Edu Vera MD 09/15/2019 07:44 A
[2019-09-15] MEDS: ASPIRIN 81 MG CHEW TABLET PO SCH (08:24)
[2019-09-15] MEDS: CLOPIDOGREL 75 MG TAB PO SCH (08:24)
[2019-09-15] MEDS: PANTOPRAZOLE 40MG TAB (PROTONIX) PO SCH (08:25)
[2019-09-15 08:36] LABS: LYMPH % 3.2 % (24.0-44.0)
[2019-09-15] MEDS ORDERED: FUROSEMIDE 40 MG/4 ML VIAL (J1940) IV ONE (09:00)
[2019-09-15 09:17] LABS: CALCIUM LEVEL 9.1 MG/DL (8.8-10.2); CREATININE FOR GFR 2.65 MG/DL (0.70-1.30); GLOMERULAR FILTRATION RATE 24.7 (>35); POTASSIUM SERUM 5.6 MEQ/L (3.5-5.1)
--- NOTE | 2019-09-15 09:17 | CR ---
DATE OF CONSULTATION: 09/15/2019 INDICATION: Non ST-elevation myocardial infarction (STEMI) and congestive heart failure. REFERRING PHYSICIAN: Dr. Go HISTORY OF PRESENT ILLNESS: Mr. Torres is previously unknown to me. Most of the information is obtained from the chart and to a lesser degree also from the patient. Unfortunately, he is on CPAP and consequently the communication is somewhat limited, but to the best of my understanding, he carries no prior history of coronary artery disease but has been treated for chronic congestive heart failure, obstructive sleep apnea and chronic atrial fibrillation. He reports that in the last three days he has had chest discomfort and severe dyspnea. Yesterday, he said that the dyspnea was so severe that he did not think he was going to live even with his CPAP on, and eventually he decided to come to the emergency room. He was found to be in florid congestive heart failure. It appears based on my understanding that his CPAP at home has a mask with just nasal pillows, but in the hospital he got a full face mask and it has been more effective in helping his breathing. He said that the chest discomfort persisted throughout the day, but then subsided last night. He has been chest pain free since. This morning, he feels markedly improved as far as the degree of dyspnea. He was recommended to undergo transfer for coronary angiography, but refused. When I ask him why he would he refuse, he cannot give me a clear-cut answer, but he just tells me that he does not want to go that route. They apparently discussed it with his and it is his final decision. At bedside, the patient seems relatively comfortable while on CPAP. He is still able to communicate even though obviously it is somewhat challenging. PAST MEDICAL HISTORY: 1. Chronic atrial fibrillation. 2. Chronic congestive heart failure. 3. Morbid obesity. 4. Obstructive sleep apnea (CHINO). 5. Hypertension. 6. Prostate cancer. 7. Depression/anxiety. OUTPATIENT MEDICATIONS: Lipitor 80 mg three times a week, Enalapril 20 mg a day, vitamin D2 50,000 units every 2 weeks, iron sulfate 325 a day, fluoxetine 20 mg a day, multivitamin, omeprazole 20 mg a day, Xarelto 20 mg a day, Januvia 50 mg a day, spironolactone 25 mg a day, temazepam 30 mg a day and venlafaxine 75 mg a day. ALLERGIES: PENICILLIN. SURGICAL HISTORY: Prostate biopsy and back surgery. FAMILY HISTORY: Father of coronary artery disease and mother of stomach cancer. SOCIAL HISTORY: The patient has been smoking a pipe. He says that he has not been able to smoke in THE last several days. He denies significant alcohol use. REVIEW OF SYSTEMS: Somewhat limited due to his condition, but he currently denies any chest discomfort. It looks like he had symptoms for at least 3 days of chest discomfort that peaked in severity yesterday. He has been pain free since he believes shortly after midnight. He denies any history of syncope and near-syncope. He has been diabetic for a long time. No recent fever, chills, nausea or vomiting. LABORATORIES: There is no basic metabolic panel this morning yet. His troponin I has been trended and it is going up from initial 2.5 to the last one of 12.1. His terminal pro BNP is 14,500. Admission basic metabolic panel last night revealed sodium 137, potassium 4.9, BUN 50, creatinine 2.7 and glucose 275. CBC with hemoglobin 11.2, hematocrit 36.6 and platelet count 270,000. INR was 1.39. ECG was very poor quality. It is atrial fibrillation with controlled rate. There appeared to be some subtle ST-T abnormalities, but the quality is poor and consequently I am going repeat it. Chest x-ray was consistent with congestive heart failure. Obviously with his size the quality of the film is limited as well. PHYSICAL EXAMINATION: He is a morbidly obese man who seems to be in good spirits. I do not appreciate any confusion. Blood pressure the last one 100/53. Heart rate has been in the 60s to about 100. It is atrial fibrillation. Saturation is in mid to high 90s on CPAP with up to 8 liters of oxygen bled in. His jugular venous pulse (JVP) is difficult to scientific illustrator with his body habitus, but appears high. Lungs have bilateral rhonchi and fine crackles. I do not appreciate much wheezing. Heart exam reveals very muffled heart sounds, irregular rhythm. I do not appreciate any obvious gallop or rub. Abdomen is morbidly obese. I am unable to estimate the size of liver or spleen. Bowel sounds are present. Extremities are free of significant edema. Peripheral pulses are palpable. ASSESSMENT/PLAN: Mr. Torres is an 84-year-old man who has chronic diabetes, chronic atrial fibrillation, morbid obesity, CHINO on CPAP, and chronic congestive heart failure. He presented with myocardial infarction complicated by renal failure and heart failure. He refused coronary intervention and when I talked to him about it today his opinion has not changed. Consequently, we will be left with purely medical management. He is currently on aspirin, Plavix and heparin, which I consider appropriate. He is receiving furosemide. Current dose of 40 mg every 12 hours is probably not sufficient and I am going to increase the dose. His blood pressure is soft and consequently I do not believe that we can administer any vasodilators. High dose statin is also on board. Diabetes management is as per primary team. Certainly, he has a lot of poor prognostic indicators that include age, heart failure, morbid obesity and renal failure, so I am not overly optimistic about his overall prognosis. MTDD
[2019-09-15] MEDS ORDERED: PATIROMER SORBITEX CALCIUM 8.4 GM POWDER PACKET (VELTASSA) PO SCH (12:00)
[2019-09-15] MEDS ORDERED: FUROSEMIDE 40 MG/4 ML VIAL (J1940) IV SCH (12:00)
[2019-09-15] MEDS: FUROSEMIDE 100 MG/10 ML VIAL (J1940) IV SCH (15:38)
--- NOTE | 2019-09-15 16:15 | IPNPDOC ---
Text Note Date of Service The patient was seen on 09/15/19. NOTE SUBJECTIVE: Feels better this morning. His breathing is more comfortable and he does not have the chest tightness or heavines. He is able to talk in full sentences thought his BIPAP mask. Says the mask is really helping with the breathing. I discussed again abot Cardiac cath. But he says he does not want to do any procedures and does not want to go to [place]. He says his 84 and has had a good life and he has disscussed with his claudio when it is his time to go he wants to go naturally. He does not want to end up on dialysis which i did explain may be a side effect from cardiac cath due to dye. I explained with cath if it is seen that his blockage can be opened up by stent then his heart damage will be less and his heart will heal better and prevent him from having further heart attack. He asked if they cannot open up by stent then what is the next step. I explained then he will probably be advised CABG. He said "that's it i do not want to go that way". He wants us to treat him here with medications. PHYSICAL EXAM: VITALS: as below General Exam: Positive: Alert, Cooperative Eye Exam: Positive: PERRLA ENT Exam: Positive: Atraumatic Neck Exam: Positive: Supple, JVD Chest Exam: Positive: Clear to auscultation Heart Exam: Positive: Irregular Rhythm Telemetry: Positive: Atrial fibrillation Abdomen Exam: Positive: Normal bowel sounds Extremity Exam: Positive: Clubbing; Negative: Cyanosis Skin Exam: Positive: Nl turgor and temperature Neuro Exam: Positive: Strength at 5/5 X4 ext, Cranial Nerves 3-12 NL LABS and Radiology : reviewed. Assessment and Plan: Patient is 84 years old male with past medical history of hypertension, CHF, morbid obesity, obstructive sleep apnea, prostate cancer presented to the hospital with increased shortness of breath. Patient stated for past 3 days he has developed progressive shortness of breath with increased orthopnea and leg swelling to the extend that he has been using his CPAP round the clock without any relief .Also patient complained of substernal chest tightness and heaviness yesterday which lasted the whole they then slowly was relieved at night. On arrival to the ED he was in [place] CHF, severely hypoxic. He was also in afib and had an NSTEMI. Acute respiratory failure with Hypoxia Due to Acute CHF continue BIPAP support with oxygen. Acute on Chronic CHF Continue BIPAP with oxygen bleed in. given 120 mg of lasix with very good diuresis continue lasix Cardiology consulted. MICHELA on CKD 3 with hyperkalemia due to Acute CHF continue lasix nephrology consulted. NSTEMI Erma refused to go to [place] for cardiac intervention. Wanted only medical management He opted to be DNR and DNI. Continue ASA, PlaviX, stain high dose and heparin infusion. CHRONIC ATRIAL FIBRILLATION continues to be in a fib rate controlled continue metoprolol. PROSTATE CANCER s/p radiation in 2002 follows with urology. DIABETES continue lispro. HYPERTENSION now Bp in low normal range, continue metoprolol with hold parameters. MORBID OBESITY complicating care DEPRESSION/ANXIETY SLEEP APNEA presently on BIPAP Code: DNR/DNI VS,Fishbone, I+O VS, Fishbone, I+O Laboratory Tests 09/14/19 22:17 09/15/19 03:30 09/15/19 06:26 Vital Signs Date Time Temp Pulse Resp B/P (MAP) Pulse Ox O2 Delivery O2 Flow Rate FiO2 09/15/19 14:15 65 136/91 (106) 95 09/15/19 14:00 97.5 24 09/15/19 12:30 NIPPV (BIPAP/CPAP) 45 09/15/19 12:00 8.0 I&O- Last 24 Hours up to 6 AM 09/15/19 06:00 Intake Total 120 ml Output Total 500 ml Balance -380 ml NINO MEJIA MD Sep 15, 2019 16:15
--- NOTE | 2019-09-15 16:15 | REP ---
Clinical: Acute renal insufficiency Technique: Real time aguirre scale ultrasound examination using curved array transducer. Findings: Evaluation is severely limited by body habitus and technical factors. Right pleural effusion noted. The right kidney measures 13.8 x 5.8 x 6.8 cm including 6.9 cm complex hypoechoic mid/lower pole lesion which may represent complex cyst versus mass. No obvious hydronephrosis. Left kidney is not visualized. Impression: Right pleural effusion. Right Kidney complex cyst versus mass. Left kidney not visualized. Electronically Signed by Edu Vera MD 09/15/2019 04:07 P
[2019-09-15 16:47] LABS: CALCIUM LEVEL 8.8 MG/DL (8.8-10.2); CK-MB VALUE MASS 4.7 NG/ML (<3.6); CREATININE FOR GFR 2.78 MG/DL (0.70-1.30); GLOMERULAR FILTRATION RATE 23.3 (>35); MB/CK RELATIVE INDEX 2.83 (< OR =4); TROPONIN I 2.39 NG/ML (< 0.10)
[2019-09-15] MEDS: HEPARIN DRIP 25,000 UNITS in IV 1 EA IV SCH (18:32)
[2019-09-15 18:46] LABS: APPEARANCE, URINE HAZY (CLEAR); BACTERIA, URINE AUTO 1+ (NEGATIVE); BILIRUBIN, URINE AUTO NEGATIVE (NEGATIVE); BLOOD, URINE BLOOD 3+ (NEGATIVE); COLOR, URINE STRAW (YELLOW); GLUCOSE, URINE (UA) AUTO NEGATIVE (NEGATIVE); KETONE, URINE AUTO NEGATIVE (NEGATIVE); LEUKOCYTE ESTERASE, URINE AUTO TRACE (NEGATIVE); MUCUS, URINE SMALL (NEGATIVE); NITRITE, URINE AUTO NEGATIVE (NEGATIVE); PROTEIN, URINE AUTO NEGATIVE (NEGATIVE); RBC, URINE AUTO TNTC /HPF (0-3); SPECIFIC GRAVITY URINE AUTO 1.005 (1.002-1.035); SQUAMOUS EPITHELIAL CELL UR AU 0 /HPF (0-6); UROBILINOGEN, URINE AUTO 0.2 mg/dL (0.0-2.0); WBC, URINE AUTO 3 /HPF (0-3)
[2019-09-15 23:35] LABS: INR 1.21; PROTHROMBIN TIME 15.1 SECONDS (11.8-14.0)
[2019-09-15 23:36] LABS: PARTIAL THROMBOPLASTIN TIME 42.4 SECONDS (25.0-38.4)
[2019-09-16] VITALS (18 sets, daily range): BP systolic 110–149; BP diastolic 56–95; PULSE 54–68; O2SAT 93–98
[2019-09-16] MEDS: TEMAZEPAM 15 MG CAP PO PRN ×2 (00:52→23:03)
[2019-09-16] MEDS: FUROSEMIDE 100 MG/10 ML VIAL (J1940) IV SCH ×3 (00:52→16:17)
[2019-09-16] MEDS: HEPARIN SOD (PORCINE) 5000 UNITS/ML VIAL (J1644 PER 1000UNITS) IV PRN ×2 (02:50→09:04)
[2019-09-16 04:48] LABS: BASO % 0.4 % (0.0-1.0); EOS # 0.1 10^3/uL (0.0-0.5); EOS % 0.6 % (0.0-3.0); HEMATOCRIT 32.3 % (42.0-52.0); HEMOGLOBIN 10.2 g/dl (13.5-17.5); LYMPH # 1.6 10^3/uL (1.5-5.0); LYMPH % 16.5 % (24.0-44.0); MEAN CORPUSCULAR HGB CONC 31.6 g/dl (32.0-36.5); MEAN CORPUSCULAR VOLUME 66.6 fl (80.0-96.0); MONO % 10.4 % (0.0-5.0); NEUTROPHILS # 6.9 10^3/uL (1.5-8.5); NEUTROPHILS % 71.8 % (36.0-66.0); PLATELET COUNT, AUTOMATED 197 10^3/uL (150-450); RED BLOOD COUNT 4.85 10^6/uL (4.30-6.10); WHITE BLOOD COUNT 9.7 10^3/uL (4.0-10.0)
[2019-09-16 05:08] LABS: CALCIUM LEVEL 8.6 MG/DL (8.8-10.2); CREATININE FOR GFR 2.85 MG/DL (0.70-1.30); GLOMERULAR FILTRATION RATE 22.7 (>35); MAGNESIUM LEVEL 2.1 MG/DL (1.8-2.4); POTASSIUM SERUM 4.4 MEQ/L (3.5-5.1)
--- NOTE | 2019-09-16 06:16 | CR ---
DATE OF CONSULTATION: 09/15/2019 REQUESTING PHYSICIAN: Dr. Tamara Go. CONSULTING PHYSICIAN: Dr. Amparo Brewer REASON FOR CONSULTATION: Acute kidney injury (MICHELA) on chronic kidney disease (CKD) III in the setting of decompensated chronic congestive heart failure. HISTORY OF PRESENT ILLNESS: Mr. Torres is previously unknown to me. The history is obtained from review of the chart and discussion with other health care providers and minimal discussion with the patient who is presently on noninvasive ventilatory treatment limiting his communication. He is an 84-year-old male with a past medical history of chronic kidney disease stage III B with a baseline creatinine of 1.8-2.0, hypertension, congestive heart failure, morbid obesity, obstructive sleep apnea and atrial fibrillation. The patient reports that for the past three days since the weekend he has had progressive and worsening chest discomfort and dyspnea, even felt severely dyspneic at rest and presented to the emergency room where he was found to be in florid congestive heart failure with acute kidney injury and elevated troponin with a peak troponin of 12.1 and associated hyperkalemia. He denies any recent workup for ischemic cardiomyopathy and refused transfer for cardiac catheterization. He was started on intravenous (IV) diuretics with improved urine output and reports that his dyspnea has lessened since admission. He denies any use of nonsteroidal anti-inflammatory drugs (NSAIDs) at home. PAST MEDICAL HISTORY: 1. CKD stage III B, baseline creatinine 1.8-2.0. 2. Chronic atrial fibrillation. 3. Chronic congestive heart failure. 4. Morbid obesity. 5. Hypertension. 6. Obstructive sleep apnea. 7. History of prostate cancer. 8. Depression. 9. Anxiety. 10. Dyslipidemia. 11. Anemia. 12. Gastroesophageal reflux disease (GERD). 13. Chronic anticoagulant use. 14. Non insulin dependent diabetes mellitus. PAST SURGICAL HISTORY: 1. Prostate biopsy. 2. Back surgery. ALLERGIES: PENICILLIN. FAMILY HISTORY: Father is of coronary artery disease and mother of stomach cancer. HOME MEDICATIONS: - Lipitor 80 mg three times a week - enalapril 20 mg by mouth daily - vitamin D 250,000 units every two weeks - iron sulfate 325 mg by mouth daily - fluoxetine 20 mg by mouth daily - multivitamin daily - omeprazole 20 mg daily - Xarelto 20 mg a day - Januvia 50 mg by mouth daily - spironolactone 25 mg daily - temazepam 30 mg daily - venlafaxine 75 mg daily SOCIAL HISTORY: He is a pipe smoker. He denies alcohol or drug use. REVIEW OF SYSTEMS: Review of systems is limited to the patient's communication barrier being on noninvasive ventilatory support. However, constitutional he denies fevers, chills. Eyes: Denies visual changes or tearing. ENT: Denies rhinorrhea or odynophagia. Cardiac: He reports leg edema and chest pain. He denies palpitations. Gastrointestinal: Denies nausea, vomiting, diarrhea. Genitourinary: Denies changes of urination or dysuria. Endocrine: He reports diabetes and obesity. Hematologic: He reports long-term anticoagulant use and anemia. Musculoskeletal: He reports leg swelling. Denies acute myalgias or arthralgias. Pulmonary: He reports shortness of breath at rest and obstructive sleep apnea. Psychiatric: He reports anxiety, depression. Neurologic: He denies seizure or syncope. The remainder review of systems is negative or as per history of present illness (HPI). PHYSICAL EXAMINATION: VITAL SIGNS: Blood pressure 100/53, heart rate has ranged from 54-70, temperature 97.0, respiratory rate 22, saturating 96% on 45% FiO2. Urine output thus far is 1.7 liters. GENERAL: The patient is seen lying in bed in the intensive care unit. Head of the bed is elevated, C-PAP is in place. HEENT/NECK: Extraocular muscles are intact. He makes eye contact. His jugular veins are difficult to assess secondary to body habitus but does appear elevated. LUNGS: Lungs have bibasilar crackles. There is mild tachypnea. HEART: Heart sounds are distant and muffled and irregular. ABDOMEN: Morbidly obese. There are bowel sounds. There is an indwelling Banks catheter draining clear urine. EXTREMITIES: 1+ leg edema. SKIN: Normal temperature and turgor. NEUROLOGIC: He is cooperative with physical exam and tries to answer some simple questions appropriately. LABORATORY DATA: Sodium 136, potassium 5.0, bicarbonate 22, BUN 49, creatinine 2.7, troponin peak 12.1, current 2.3. BNP 14,000, hemoglobin 10.4, platelet 187. Blood culture pending. IMAGING: Renal ultrasound today showed right pleural effusion that was incidentally seen, right kidney complex cyst versus mass and left kidney was not visualized. The examination was limited by his body habitus. Chest x-ray yesterday shows congestive heart failure (CHF) pulmonary edema pattern. INPATIENT MEDICATIONS: - heparin drip - aspirin 324 mg by mouth times one and then 81 mg by mouth daily - atorvastatin 80 mg by mouth nightly - Plavix 75 mg by mouth daily - I started him on Lasix 60 mg IV every 8 hours, he received Lasix 120 mg IV times one - metoprolol 25 mg by mouth twice a day - Protonix 40 mg by mouth daily - Veltassa 8.4 grams by mouth times one PROBLEMS: 1. Acute kidney injury (MICHELA) on chronic kidney disease stage III B. Baseline creatinine is 1.8-2.0. AKA I is likely secondary to decompensated heart failure and myocardial infarction. I have increased his Lasix to 60 mg IV every 8-hours. He has already made 1.7 liters of urine and I am hopeful that his renal function will improve as he is diuresed. Of note: His renal imaging was limited due to his severe obesity. The left kidney could not be visualized and right kidney has a complex cyst versus mass. 2. Hyperkalemia due to acute kidney injury and use of angiotensin converting enzyme (ROSS) inhibitor at home. ROSS inhibitor is held. He is on a potassium restricted diet. His potassium is expected to improve with Lasix diuresis. He is also given a dose of Veltassa. 3. Decompensated congestive heart failure. No echocardiogram presently available for review. Patient with myocardial infarction with peak troponin of 12 and refusing coronary catheterization, is responding to IV diuretics. Continue Lasix 60 mg every 8 hours. 4. Hypertension. Blood pressures are well-controlled, systolic has been in the 120s-130s. He is off his home ROSS inhibitor in view of acute kidney injury and continues on IV Lasix and metoprolol. 5. Chronic atrial fibrillation. Rate controlled with metoprolol and presently on a heparin drip in view of non ST elevation myocardial infarction (N-STEMI). 6. Right kidney complex cyst versus mass. He is presently not a candidate for any non urgent contrast based renal imaging. Thank you for involving me in the care of Mr. Torres. I will be happy to follow him along with you.
--- NOTE | 2019-09-16 07:49 | ECGEPIP ---
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 First-degree AV block Left axis deviation with poor precordial R wave progression; rule out prior septal infarction Incomplete LBBB Nonspecific ST/T wave abnormalities Slower rate than 09/14/19. Electronically Signed on 09-16-2019 7:48:52 EST by Natanael Patel
--- NOTE | 2019-09-16 08:00 | ECGEPIP ---
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 Left axis deviation Incomplete left bundle branch block Somewhat low voltages with slow precrdial R wave progression and persistent S waves V5 and V6; body habitus versus pulmonary disease. Could not rule out prior septal/inferior infarction Nonspecific ST/T wave abnormalities No change from 09/15/19 Electronically Signed on 09-16-2019 8:00:13 EST by Natanael Patel
[2019-09-16] MEDS: METOPROLOL TART 25 MG TABLET PO SCH ×2 (09:00→20:23)
[2019-09-16] MEDS: HumaLOG INSULIN (NovoLOG) PER UNIT SC SCH ×4 (09:05→20:25)
[2019-09-16] MEDS: PANTOPRAZOLE 40MG TAB (PROTONIX) PO SCH (09:06)
[2019-09-16] MEDS: ASPIRIN 81 MG CHEW TABLET PO SCH (09:06)
[2019-09-16] MEDS: CLOPIDOGREL 75 MG TAB PO SCH (09:06)
--- NOTE | 2019-09-16 10:09 | IPNPDOC ---
Text Note Date of Service The patient was seen on 09/16/19. NOTE SUBJECTIVE: Feels much better this morning. SOB much improved, He is in a good mod . Denies any chest tightness. No fever no chills. PHYSICAL EXAM: VITALS: as below General Exam: Positive: Alert, Cooperative Eye Exam: Positive: PERRLA ENT Exam: Positive: Atraumatic Neck Exam: Positive: Supple, No JVD Chest Exam: Positive: diminished breath sounds, bilateral basal crackles a few decreased. Heart Exam: Positive: Irregular Rhythm, rate low, s1 ,s2 normal, no rub, murmur or gallop. Telemetry: Positive: Atrial fibrillation Abdomen Exam: Positive: Normal bowel sounds Extremity Exam: Positive: Clubbing; Negative: Cyanosis Skin Exam: Positive: Nl turgor and temperature Neuro Exam: Positive: Strength at 5/5 X4 ext, Cranial Nerves 3-12 NL LABS and Radiology : reviewed. Assessment and Plan: Patient is 84 years old male with past medical history of hypertension, CHF, morbid obesity, obstructive sleep apnea, prostate cancer presented to the hospital with increased shortness of breath. Patient stated for past 3 days he has developed progressive shortness of breath with increased orthopnea and leg swelling to the extend that he has been using his CPAP round the clock without any relief .Also patient complained of substernal chest tightness and heaviness yesterday which lasted the whole they then slowly was relieved at night. On arrival to the ED he was in Florid CHF, severely hypoxic. He was also in afib and had an NSTEMI. Acute respiratory failure with Hypoxia Due to Acute CHF continue BIPAP support with oxygen. Acute on Chronic CHF Continue BIPAP with oxygen bleed in. continue lasix Cardiology consulted. Echo ordered. MICHELA on CKD 3 with hyperkalemia due to Acute CHF creatinine still rising but k better. continue lasix nephrology following. NSTEMI Patient refused to go to [place] for cardiac intervention. Wanted only medical management He opted to be DNR and DNI. Continue ASA, PlaviX, stain high dose and heparin infusion. CHRONIC ATRIAL FIBRILLATION continues to be in a fib rate controlled continue metoprolol with hold parameters. PROSTATE CANCER s/p radiation in 2002 follows with urology. DIABETES continue lispro. HYPERTENSION now Bp in low normal range, continue metoprolol with hold parameters. MORBID OBESITY complicating care DEPRESSION/ANXIETY SLEEP APNEA presently on BIPAP Code: DNR/DNI VS,Fishbone, I+O VS, Fishbone, I+O Laboratory Tests 09/15/19 15:53 09/16/19 04:20 Vital Signs Date Time Temp Pulse Resp B/P (MAP) Pulse Ox O2 Delivery O2 Flow Rate FiO2 09/16/19 09:00 50 09/16/19 08:00 96.3 22 139/89 (106) 92 Nasal Cannula 2.0 09/16/19 04:45 45 I&O- Last 24 Hours up to 6 AM 09/16/19 06:00 Intake Total 1159 ml Output Total 2150 ml Balance -991 ml NINO MEJIA MD Sep 16, 2019 10:09
[2019-09-16] MEDS: HEPARIN DRIP 25,000 UNITS in IV 1 EA IV SCH (13:11)
--- NOTE | 2019-09-16 13:45 | ECHO ---
DATE OF STUDY: 09/16/2019 REFERRING PHYSICIAN: Angel Cunningham DO INDICATION: Heart failure unspecified. HEIGHT: 175 cm. WEIGHT: 174 kg. 2D MEASUREMENTS: Aortic root: 3.2 cm Left atrium: 4.3 cm Left ventricle diastole: 6.7 cm Ventricular septum: 1.10 cm Posterior wall: 0.91 cm Left atrial volume index: 33 Inferior vena cava: 2.4 cm DOPPLER MEASUREMENTS: No aortic regurgitation. No aortic stenosis. Aortic valve velocity: 89.6 cm/s LVOT velocity: 66.4 cm/s LVOT VTI: 13.3 cm Mild mitral regurgitation. No mitral stenosis. Moderate tricuspid regurgitation. No pulmonic regurgitation. Estimated right ventricle systolic pressure: 62-72 mmHg assuming a right pressure of 10-15 mmHg. MITRAL ANNULAR TISSUE DOPPLER: E prime septal: 6.2 cm/s E prime lateral: 10.1 cm/s DESCRIPTION: Rhythm was atrial fibrillation with slow ventricular response and occasional premature ventricular contractions (PVCs). This was a technically difficult echocardiogram. This was a 2D, M-mode, color flow Doppler and pulse wave Doppler examination and included mitral annular tissue Doppler. No pericardial effusion. CONCLUSIONS: 1. Moderately dilated left ventricle with normal left ventricle (LV) wall thickness. Akinesis of the left ventricle apex and the mid septal and mid anterior LV segments with normal wall motion and wall thickening elsewhere. Moderate reduction of LV systolic function. Left ventricular ejection fraction (LVEF) estimated to be 40% - 45% by visual estimate. Unable to determine LV diastolic function in the setting of atrial fibrillation. 2. Mild left atrial dilatation by left atrial volume index. 3. Suggestive of severe elevation of estimated right ventricle systolic pressure (62-72 mmHg). Moderate tricuspid regurgitation. Normal right ventricle size and systolic function. 4. Mild aortic valve sclerosis of a 3-cuspid aortic valve. No aortic regurgitation or stenosis. 5. Technically difficult echocardiogram. [facility]
--- NOTE | 2019-09-16 20:16 | ECGEPIP ---
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
[2019-09-16] MEDS: ATORVASTATIN 20 MG TAB PO SCH (20:22)
--- NOTE | 2019-09-16 22:07 | IPN ---
DATE: 09/16/2019 SUBJECTIVE The patient is seen and examined this morning at the bedside in the intensive care unit. He is sitting out of bed to the chair. He reports that his breathing feels easier today. He is diuresing satisfactorily. Renal function has remained fairly stable. He offers no complaints and reports he has had minimal chest discomfort. Vital signs: Temperature 97.1, pulse 54, respiratory rate 22, blood pressure 147/70, saturating 97% on 4 liters nasal cannula. Intake yesterday was 1120. Urine output yesterday was 2300, net negative 1100, weight in the bed scale today is 172.3 kg. General: The patient is seen sitting out of bed to the chair. is present at the bedside, morbidly obese male awake, alert and cooperative, in no apparent distress. Extraocular muscles are intact. Tongue is moist. Neck is difficult to assess secondary to body habitus, but the jugular veins do not seem distended while he is sitting upright. Cardiac: Irregularly irregular. Mild bradycardia. Trace pedal edema. Otherwise there is not much significant peripheral edema. Breath sounds are diminished at the bases and distant secondary to body habitus. Abdomen is very obese and nontender. Extremities: Show only trace edema. Genitourinary: There is a Banks catheter draining urine. Neurologic: He is awake, alert and oriented times three, at baseline mentation. LABS: Sodium 137, potassium 4.4, bicarbonate 26, BUN 65, creatinine 2.8, magnesium 2.1, hemoglobin 10.2. Kidney ultrasound September 15: Right kidney complex cyst versus mass. Left kidney not visualized. MEDICATIONS: Inpatient medications reviewed by myself. I discontinued his Veltassa. Remainder of medications are unchanged from prior. PROBLEMS: 1. Systolic congestive heart failure, decompensated. Echocardiogram noted with ejection fraction of 40-45%. The patient is diuresing satisfactorily with IV Lasix, net negative about 1 liter in the past 24 hours. Continue current diuretic and monitoring of daily weights and intake and output (I and Os). 2. Acute kidney injury (MICHELA) on chronic kidney disease (CKD) stage III B. Baseline creatinine is 1.8-2.0. MICHELA is likely secondary to decompensated heart failure. Continue with Lasix 60 mg IV every 8 hourly. He is satisfactorily diuresing and is net negative 1 liter in the past 24 hours. 3. Hyperkalemia. It is resolved. Continue potassium restricted diet. Continue Lasix diuresis. I have stopped Veltassa. 4. Right kidney complex cyst versus mass. At present he is not suitable for any contrast based imaging of the kidney and he should follow up with urology as an outpatient for this issue. 5. Hypertension. Blood pressures are acceptable. Hold home ROSS inhibitor in view of acute kidney injury. He continues on metoprolol.
[2019-09-17] VITALS: BP 126/70
[2019-09-17] MEDS: FUROSEMIDE 100 MG/10 ML VIAL (J1940) IV SCH
[2019-09-17 04:00] VITALS: BP 114/72
[2019-09-17] MEDS ORDERED: FUROSEMIDE 100 MG/10 ML VIAL (J1940) IV SCH ×3 (06:00→12:00)
[2019-09-17 06:02] LABS: BASO % 0.5 % (0.0-1.0); EOS # 0.2 10^3/uL (0.0-0.5); EOS % 1.8 % (0.0-3.0); HEMATOCRIT 33.6 % (42.0-52.0); HEMOGLOBIN 10.4 g/dl (13.5-17.5); LYMPH # 1.4 10^3/uL (1.5-5.0); LYMPH % 16.5 % (24.0-44.0); MEAN CORPUSCULAR HEMOGLOBIN 20.7 pg (27.0-33.0); MEAN CORPUSCULAR VOLUME 66.8 fl (80.0-96.0); MONO % 11.9 % (0.0-5.0); NEUTROPHILS # 5.8 10^3/uL (1.5-8.5); NEUTROPHILS % 68.8 % (36.0-66.0); PLATELET COUNT, AUTOMATED 233 10^3/uL (150-450); RED BLOOD COUNT 5.03 10^6/uL (4.30-6.10); WHITE BLOOD COUNT 8.4 10^3/uL (4.0-10.0)
[2019-09-17 06:22] LABS: CALCIUM LEVEL 8.9 MG/DL (8.8-10.2); CREATININE FOR GFR 2.97 MG/DL (0.70-1.30); GLOMERULAR FILTRATION RATE 21.6 (>35); POTASSIUM SERUM 4.1 MEQ/L (3.5-5.1)
[2019-09-17] MEDS: HEPARIN DRIP 25,000 UNITS in IV 1 EA IV SCH (06:30)
[2019-09-17 08:00] VITALS: BP 120/70
[2019-09-17] MEDS: HumaLOG INSULIN (NovoLOG) PER UNIT SC SCH ×4 (08:09→20:31)
[2019-09-17] MEDS: CLOPIDOGREL 75 MG TAB PO SCH (08:09)
[2019-09-17] MEDS: PANTOPRAZOLE 40MG TAB (PROTONIX) PO SCH (08:09)
[2019-09-17] MEDS: ASPIRIN 81 MG CHEW TABLET PO SCH (08:09)
[2019-09-17] MEDS: METOPROLOL TART 25 MG TABLET PO SCH ×2 (08:10→20:53)
--- NOTE | 2019-09-17 10:23 | IPN ---
DATE: 09/16/2019 Mr. Dudley Torres was seen earlier this evening, he was lying supine in bed in no acute distress at rest. He denies any chest pain, palpitation and there is no orthopnea or paroxysmal nocturnal dyspnea (PND). He stated he feels much better. He was initially admitted on 09/15/2019 with progressive shortness of breath and pedal edema and was diagnosed on admission with a [id number] myocardial infarction. Cardiac catheterization was recommended but he did not want to proceed. PHYSICAL EXAMINATION: Patient is alert and oriented, in no acute distress at rest and his vital signs when I saw him revealed a blood pressure of 135/74 with a pulse of 67, respiration 18 and his maximum temperature is 98 degrees Fahrenheit with an oxygen saturation of 82-97% on 4 liters nasal cannula. He has a negative fluid balance of 1.1 liters for 09/15/2019 and so far today, his free balance is negative 1.1 liters. Examination of the head: Atraumatic. Neck is supple and no JVD appreciated. Lungs did not reveal any wheezing or crackles. The heart examination revealed irregular heart sounds without gallops. The PMI is displaced inferiorly and laterally. There is no rub. Abdomen is obese and nontender. Extremities revealed trace bilateral lower leg and ankle edema. Neurological examination is negative for focal deficit. LABORATORIES: CBC done today revealed a WBC of 9.7, hemoglobin 10.3, hematocrit 32.3 and platelet 197,000. BMP revealed a sodium of 137, potassium 4.4, chloride 105, CO2 26, BUN 65, creatinine 2.85, GFR 22.7, and fasting glucose 164. Serum troponin was 3.07, 6.68, 12.10 and yesterday 2.34, respectively #2 up to #4. The first troponin was 2.5. IMPRESSION: 1. [id number] myocardial infarction in this 84-year-old male with history of hyperlipidemia, hypertension, diabetes mellitus, and morbid obesity, as well as sleep apnea. His echocardiogram revealed a mildly depressed global left ventricular systolic function. He appears to be doing well and asymptomatic without any chest pain, palpitations. His shortness of breath has improved significantly. Will continue with current management, on dual antiplatelet therapy as well as a statin, and a beta sarah. We will continue current management. 2. Cardiomyopathy, probably ischemic in nature and appears to be well-compensated. Will continue the same med at this present time. He is not on ROSS inhibitor or ARB in view of his underlying renal function. 3. History of atrial fibrillation. He was in normal sinus rhythm on admission, paroxysmal in nature. He has been on anticoagulation therapy with Xarelto. Currently on IV heparin. Upon discharge, he can be back on the Xarelto plus Plavix. It was a pleasure to participate in the care of . Dudley Torres for his underlying cardiac condition. I will monitor along with you while in the hospital for his underlying cardiac condition and upon discharge. He appears to be stable.
[2019-09-17 12:37] VITALS: BP 122/65
--- NOTE | 2019-09-17 13:42 | IPNPDOC ---
Text Note Date of Service The patient was seen on 09/17/19. NOTE Subjective: Patient stated that he feels much better, his breathing improved. He denied any chest pain or palpitations Objective: VITAL SIGNS: Please see below GENERAL APPEARANCE: Morbidly obese male HEENT: Normocephalic, atraumatic. Mucous members moist and pink CARDIOVASCULAR: S1-S2, RRR LUNGS: Diminished lung sounds ABDOMEN: Abdomen is soft and nontender, obese MUSCULOSKELETAL: Range of motion is intact in all 4 extremities NEUROLOGICAL: Cranial nerves II-12 are grossly intact. Speech is not dysarthric Assessment and Plan: Patient is 84 years old male with past medical history of hypertension, CHF, morbid obesity, obstructive sleep apnea, prostate cancer presented to the hospital with acute hypoxemic respiratory failure. On arrival to the ED he was in acute CHF, severely hypoxic. He was also in afib and had an NSTEMI. Acute respiratory failure with Hypoxia Due to Acute CHF continue BIPAP support with oxygen Continue diuresis Acute on Chronic CHF Echo showed Moderate reduction of LV systolic function. 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 Wanted only medical management He opted to be DNR and DNI. Patient received IV heparin infusion ASA, PlaviX, statin, xarelto, beta sarah CHRONIC ATRIAL FIBRILLATION Rate is under control Continue oral targeted anticoagulation PROSTATE CANCER s/p radiation in 2002 follows with urology. DIABETES type 2 Diabetes diet Insulin sliding scale. HYPERTENSION Blood pressures under control Continue home cardioprotective medications MORBID OBESITY complicating care DEPRESSION/ANXIETY Continue home meds SLEEP APNEA presently on BIPAP VS,Fishbone, I+O VS, Fishbone, I+O Laboratory Tests 09/17/19 05:41 Vital Signs Date Time Temp Pulse Resp B/P (MAP) Pulse Ox O2 Delivery O2 Flow Rate FiO2 09/17/19 08:10 66 120/70 09/17/19 08:00 97.0 21 97 Nasal Cannula 4.0 09/16/19 16:16 50 I&O- Last 24 Hours up to 6 AM 09/17/19 06:00 Intake Total 1031 ml Output Total 3351 ml Balance -2320 ml DROZHZHIN,ALMA DO Sep 17, 2019 13:42
[2019-09-17] MEDS: VENLAFAXINE **XR** 75MG CAPSULE PO SCH (14:18)
[2019-09-17] MEDS: RIVAROXABAN 15 MG TAB (XARELTO) PO SCH (14:18)
[2019-09-17 14:41] LABS: CALCIUM LEVEL 8.4 MG/DL (8.8-10.2); CREATININE FOR GFR 3.05 MG/DL (0.70-1.30); POTASSIUM SERUM 3.9 MEQ/L (3.5-5.1)
[2019-09-17 16:00] VITALS: BP 105/96
--- NOTE | 2019-09-17 17:54 | IPN ---
DATE: 09/17/2019 SUBJECTIVE: The patient was seen and examined this morning at the bedside in the intensive care unit. He reports that his breathing is improving. He continues on bilevel positive airway pressure (BiPAP). He continues with Banks catheter. He is diuresing satisfactorily. Temperature 97.0, pulse 55, respiratory rate 21, blood pressure 120/70, saturating 97% on four liters nasal cannula. Intake yesterday was one liter, urine output was 2200, net negative 1140. Weight in the bed scale today is 170.4 kg which is decreased from prior. GENERAL: The patient is seen sitting out of bed to the chair, morbidly obese, elderly male in no apparent distress. Bilevel positive airway pressure (BiPAP) is in place. Extraocular muscles are intact. Tongue is moist. Neck veins are unable to be assessed secondary to body habitus. Heart sounds are mildly bradycardic and irregular, S1, S2. There is trace leg edema. Breath sounds are diminished and distant and hard to hear over the BiPAP. There is no accessory muscle use. The abdomen is soft, morbidly obese, and nontender. Genitourinary shows Banks catheter draining clear urine. SKIN: Normal temperature and turgor. NEUROLOGIC: He is oriented times three, interactive and conversational at baseline mentation. LABORATORY DATA: White count 8.4, hemoglobin 10.4, platelet 233. Sodium 135, potassium 4.1, bicarbonate 23, BUN 78, creatinine 2.9. INPATIENT MEDICATIONS: His Lasix was decreased to 60 mg IV twice daily. His heparin drip was stopped and switched to Xarelto. PROBLEMS: 1. Acute kidney injury (MICHELA) on chronic kidney disease (CKD), stage IIIB. Baseline creatinine is 1.8 to 2.0. MICHELA is likely secondary to decompensated heart failure. He is diuresing satisfactorily. I am cutting the Lasix down to twice a day. 2. Decompensated systolic congestive heart failure. Volume status is improving. His daily weights are downtrending. His Lasix dose is being cut to 60 mg IV twice a day and I would plan to transition him to oral diuretics tomorrow. 3. Right kidney complex cyst versus mass. It was discussed with the patient. At present, he is not suitable for any contrast-based imaging of the kidney. We may consider a noncontrast CT scan prior to discharge. 4. Hypertension. Blood pressures are acceptable. His angiotensin-converting enzyme (ROSS) inhibitor remains on hold in view of acute kidney injury. He continues on metoprolol. 5. History of atrial fibrillation. He is off of heparin infusion and I note he is being resumed on Xarelto. In view of renal function, 15 mg daily would be appropriate. He is rate controlled with beta sarah.
[2019-09-17 20:00] VITALS: BP 115/58
[2019-09-17 20:16] LABS: CALCIUM LEVEL 8.7 MG/DL (8.8-10.2); CREATININE FOR GFR 3.18 MG/DL (0.70-1.30); POTASSIUM SERUM 4.3 MEQ/L (3.5-5.1)
[2019-09-17] MEDS: ATORVASTATIN 20 MG TAB PO SCH (20:47)
[2019-09-17] MEDS: TEMAZEPAM 15 MG CAP PO PRN (20:47)
[2019-09-18] VITALS (7 sets, daily range): BP systolic 113–137; BP diastolic 60–87
[2019-09-18 04:53] LABS: BASO # 0.1 10^3/uL (0.0-0.2); BASO % 0.6 % (0.0-1.0); EOS # 0.2 10^3/uL (0.0-0.5); EOS % 2.3 % (0.0-3.0); HEMATOCRIT 32.7 % (42.0-52.0); HEMOGLOBIN 10.1 g/dl (13.5-17.5); LYMPH # 1.5 10^3/uL (1.5-5.0); LYMPH % 17.4 % (24.0-44.0); MEAN CORPUSCULAR HEMOGLOBIN 21.1 pg (27.0-33.0); MEAN CORPUSCULAR HGB CONC 30.9 g/dl (32.0-36.5); MEAN CORPUSCULAR VOLUME 68.4 fl (80.0-96.0); MONO % 11.8 % (0.0-5.0); NEUTROPHILS # 5.8 10^3/uL (1.5-8.5); NEUTROPHILS % 67.5 % (36.0-66.0); PLATELET COUNT, AUTOMATED 233 10^3/uL (150-450); RED BLOOD COUNT 4.78 10^6/uL (4.30-6.10); WHITE BLOOD COUNT 8.6 10^3/uL (4.0-10.0)
[2019-09-18 05:12] LABS: CALCIUM LEVEL 8.6 MG/DL (8.8-10.2); CREATININE FOR GFR 3.08 MG/DL (0.70-1.30); GLOMERULAR FILTRATION RATE 20.7 (>35); POTASSIUM SERUM 4.1 MEQ/L (3.5-5.1)
--- NOTE | 2019-09-18 06:47 | IPN ---
DATE: 09/17/2019 in the evening, he was lying supine in bed in no acute distress. He has no orthopnea or PND. He denies any chest pain. He had been out of bed earlier today and ambulatory in the room. He has no manifestation. This was the only part of the dictation that could be made out, completely inaudible.
[2019-09-18] MEDS: METOPROLOL TART 25 MG TABLET PO SCH ×2 (09:00→12:12)
[2019-09-18] MEDS: ISOSORBIDE DIN (ISORDIL) 10 MG TAB PO SCH ×2 (09:07→20:13)
[2019-09-18] MEDS: OMEPRAZOLE 20 MG CAP PO SCH (09:07)
[2019-09-18] MEDS: VENLAFAXINE **XR** 75MG CAPSULE PO SCH (09:07)
[2019-09-18] MEDS: HumaLOG INSULIN (NovoLOG) PER UNIT SC SCH ×4 (09:07→20:13)
[2019-09-18] MEDS: ASPIRIN 81 MG CHEW TABLET PO SCH (09:07)
[2019-09-18] MEDS: CLOPIDOGREL 75 MG TAB PO SCH (09:07)
--- NOTE | 2019-09-18 10:43 | IPNPDOC ---
Text Note Date of Service The patient was seen on 09/18/19. NOTE Subjective: No any acute events overnight. He denied any chest pain or palpit ations. Patient stated that his breathing continues to improve. Patient developed asymptomatic bradycardia. Objective: VITAL SIGNS: Please see below GENERAL APPEARANCE: Morbidly obese male HEENT: Normocephalic, atraumatic. Mucous members moist and pink CARDIOVASCULAR: S1-S2, RRR LUNGS: Diminished lung sounds, especially in at the base ABDOMEN: Abdomen is soft and nontender, obese MUSCULOSKELETAL: Range of motion is intact in all 4 extremities NEUROLOGICAL: Cranial nerves II-12 are grossly intact. Speech is not dysarthric Assessment and Plan: Patient is 84 years old male with past medical history of hypertension, CHF, morbid obesity, obstructive sleep apnea, prostate cancer presented to the hospital with acute hypoxemic respiratory failure. On arrival to the ED he was in acute CHF, severely hypoxic. He was also in afib and had an NSTEMI. Acute respiratory failure with Hypoxia Due to Acute CHF continue BIPAP support with oxygen Continue diuresis Acute on Chronic CHF Echo showed Moderate reduction of LV systolic function. Left ventricular ejection fraction (LVEF) estimated to be 40% - 45% by visual estimate Continue diuresis I's and O's MICHELA on CKD 3 Most likely prerenal Worsening today DC Lasix Patient currently on torsemide Registrar Nurses' Registry team follows him NSTEMI Patient refused to go to [place] for cardiac intervention. Wanted only medical management He opted to be DNR and DNI. Patient received IV heparin infusion ASA, PlaviX, statin, xarelto, beta sarah CHRONIC ATRIAL FIBRILLATION Rate is under control Continue oral targeted anticoagulation Bradycardia Most likely secondary to beta blockers I reduced dose of metoprolol PROSTATE CANCER s/p radiation in 2002 follows with urology. DIABETES type 2 Blood glucose levels under control Diabetes diet Insulin sliding scale. HYPERTENSION Blood pressures under control Continue home cardioprotective medications MORBID OBESITY complicating care DEPRESSION/ANXIETY Continue home meds SLEEP APNEA BIPAP daily at bedtime VS,Fishbone, I+O VS, Fishbone, I+O Laboratory Tests 09/17/19 14:07 09/17/19 19:47 09/18/19 04:06 Vital Signs Date Time Temp Pulse Resp B/P (MAP) Pulse Ox O2 Delivery O2 Flow Rate FiO2 09/18/19 09:07 130/62 09/18/19 09:00 58 09/18/19 04:00 4.0 09/18/19 04:00 98.0 18 94 NIPPV (BIPAP/CPAP) 09/16/19 16:16 50 I&O- Last 24 Hours up to 6 AM 09/18/19 06:00 Intake Total 1034 ml Output Total 2125 ml Balance -1091 ml ALMA PATINO DO Sep 18, 2019 10:43
[2019-09-18] MEDS ORDERED: TEMAZEPAM 15 MG CAP PO PRN (10:45)
[2019-09-18] MEDS ORDERED: TORSEMIDE 20 MG TAB PO SCH (17:00)
[2019-09-18] MEDS: RIVAROXABAN 15 MG TAB (XARELTO) PO SCH (18:25)
[2019-09-18] MEDS: ATORVASTATIN 20 MG TAB PO SCH (20:12)
[2019-09-18] MEDS ORDERED: RAMELTEON 8 MG TAB (ROZEREM) PO SCH (21:00)
--- NOTE | 2019-09-18 21:42 | ECGEPIP ---
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
--- NOTE | 2019-09-18 22:07 | ECGEPIP ---
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 No significant change compared with 09/17/2019 at 7:41 AM. Electronically Signed on 09-18-2019 22:07:29 EST by Rafael Anders
[2019-09-19 04:00] VITALS: BP 136/72
--- NOTE | 2019-09-19 06:55 | IPN ---
DATE OF VISIT: 09/18/2019 Mr. Dudley Torres was seen this evening, he was laying supine in bed in no acute distress at rest. He denies any chest pain. He has been ambulating in his room. He denies any palpitations. He was initially admitted with heart failure and he ruled in for an non-ST elevation myocardial infarction (NSTEMI). He had refused to proceed with cardiac catheterization. He has opted for conservative management. PHYSICAL EXAMINATION: The patient is alert and oriented, in no acute distress at rest and his vital signs when I saw him revealed a blood pressure of 131/60 with a pulse of 65, respirations 20 and his maximum temperature was 97.8 degrees Fahrenheit with a oxygenation saturation of 95% on room air. He had a negative fluid balance of 2 liters for 09/17/2019. Examination of the head: Atraumatic. Neck is supple and no jugular venous distention (JVD) appreciated. The lungs did not reveal any wheezing or crackles. The heart examination revealed regular heart sounds without gallops. The point of maximal impulse (PMI) is displaced inferiorly and laterally. There is no rub. I could not appreciate any murmurs. Abdomen is soft and nontender, bowel sounds normal. Extremities revealed trace ankle edema. Neurological examination is negative for focal deficit. LABORATORY DATA: CBC done today revealed a WBC of 8.6, hemoglobin 10.1, hematocrit 32.7 and platelets 233,000. BMP revealed a sodium of 139, potassium 4.1, chloride 102, CO2 27, BUN 82, creatinine 3.08, GFR 20.7, fasting glucose 135, calcium 8.6. Serum magnesium is 2.0. IMPRESSION: 1. Lik-LI-chsqdzxpz myocardial infarction, currently asymptomatic without any chest pain and his shortness of breath has improved. He presented with heart failure and his LVEF is depressed. Will continue current management, on dual antiplatelet therapy as well as a beta-sarah, a statin. He is also on long acting nitrate. He appears to be stable and I will continue to monitor him along with you. 2. Cardiomyopathy, well-compensated and probably ischemic in nature. Will continue current management and will need to monitor closely his BUN, creatine and serum potassium in view of the diuretics. He is not on an ROSS inhibitor or ARB, or Entresto in view of his underlying renal function. He is however on a long acting nitrate and at one poine, we may be able to start him on hydralazine. 3. Atrial fibrillation, paroxysmal in nature and he is being monitored. 4. History of morbid obesity and obstructive sleep apnea (CHINO), on CPAP. It was a pleasure to participate in the care of Mr. Dudley Torres for his underlying cardiac condition. I will continue to monitor him along with you. Please do not hesitate to call if you have any questions.
[2019-09-19 07:02] LABS: BASO % 0.7 % (0.0-1.0); EOS # 0.2 10^3/uL (0.0-0.5); EOS % 3.7 % (0.0-3.0); HEMATOCRIT 31.5 % (42.0-52.0); HEMOGLOBIN 9.8 g/dl (13.5-17.5); LYMPH # 1.3 10^3/uL (1.5-5.0); MEAN CORPUSCULAR HEMOGLOBIN 21.2 pg (27.0-33.0); MEAN CORPUSCULAR HGB CONC 31.1 g/dl (32.0-36.5); MEAN CORPUSCULAR VOLUME 68.2 fl (80.0-96.0); MONO # 0.6 10^3/uL (0.0-0.8); MONO % 9.9 % (0.0-5.0); NEUTROPHILS # 3.8 10^3/uL (1.5-8.5); NEUTROPHILS % 63.4 % (36.0-66.0); PLATELET COUNT, AUTOMATED 198 10^3/uL (150-450); RED BLOOD COUNT 4.62 10^6/uL (4.30-6.10)
[2019-09-19 07:26] LABS: CREATININE FOR GFR 2.54 MG/DL (0.70-1.30); GLOMERULAR FILTRATION RATE 25.9 (>35); MAGNESIUM LEVEL 2.1 MG/DL (1.8-2.4)
[2019-09-19 08:00] VITALS: BP 142/71
[2019-09-19] MEDS: METOPROLOL TART 25 MG TABLET PO SCH (09:00)
[2019-09-19] MEDS ORDERED: TORSEMIDE 20 MG TAB PO SCH (09:00)
[2019-09-19] MEDS: HumaLOG INSULIN (NovoLOG) PER UNIT SC SCH (09:35)
[2019-09-19] MEDS: OMEPRAZOLE 20 MG CAP PO SCH (09:36)
[2019-09-19] MEDS: VENLAFAXINE **XR** 75MG CAPSULE PO SCH (09:36)
[2019-09-19] MEDS: ASPIRIN 81 MG CHEW TABLET PO SCH (09:36)
[2019-09-19] MEDS: CLOPIDOGREL 75 MG TAB PO SCH (09:37)
[2019-09-19 09:38] VITALS: BP 142/71
[2019-09-19] MEDS: ISOSORBIDE DIN (ISORDIL) 10 MG TAB PO SCH (09:38)
[2019-09-19] MEDS ORDERED: MIRALAX *UNIT DOSE* 17GM PACKET PO PRN (10:30)
[2019-09-19] MEDS ORDERED: CLOP75TA2 PO (10:59)
[2019-09-19] MEDS ORDERED: PEG1POW PO (10:59)
[2019-09-19] MEDS ORDERED: NITR4TASL SL (10:59)
[2019-09-19] MEDS ORDERED: ASPI81CH8 PO (10:59)
[2019-09-19] MEDS ORDERED: ISOS10TA PO (10:59)
[2019-09-19] MEDS ORDERED: METO1TAB87 PO (10:59)
[2019-09-19] MEDS ORDERED: TORS20TA2 PO (10:59)
--- NOTE | 2019-09-19 18:23 | DS.PDOC ---
Discharge Summary General Date of Admission Sep 15, 2019 at 00:13 Date of Discharge 09/19/19 Discharge Summary PROCEDURES PERFORMED DURING STAY: [None]. ADMITTING DIAGNOSES: Acute respiratory failure with Hypoxia Acute on Chronic CHF MICHELA on CKD 3 NSTEMI CHRONIC ATRIAL FIBRILLATION PROSTATE CANCER Bradycardia DIABETES type 2 MORBID OBESITY HYPERTENSION DEPRESSION/ANXIETY SLEEP APNEA DISCHARGE DIAGNOSES: Acute respiratory failure with Hypoxia Acute on Chronic CHF MICHELA on CKD 3 NSTEMI CHRONIC ATRIAL FIBRILLATION PROSTATE CANCER Bradycardia DIABETES type 2 MORBID OBESITY HYPERTENSION DEPRESSION/ANXIETY SLEEP APNEA COMPLICATIONS/CHIEF COMPLAINT: Chf, Nstemi, Acute Resp Failure W. Hypoxia. HISTORY OF PRESENT ILLNESS:Mr. Torres is an 84-year-old man who has chronic diabetes, chronic atrial fibrillation, morbid obesity, CHINO on CPAP, and chronic congestive heart failure. He presented with myocardial infarction complicated by renal failure and heart failure. He refused coronary intervention. Patient received treatment with heparin drip and dual anti-platelet therapy HOSPITAL COURSE: During hospital stay following issue addressed Patient developed Acute respiratory failure with Hypoxia Due to Acute CHF Received BIPAP support with oxygen And intensive diuresis Acute on Chronic CHF Echo showed Moderate reduction of LV systolic function. Left ventricular ejection fraction (LVEF) estimated to be 40% - 45% by visual estimate MICHELA on CKD 3 Most likely prerenal Developed secondary to over diuresis Palliative Care Physician team follows him NSTEMI Patient refused to go to [place] for cardiac intervention. Wanted only medical management He opted to be DNR and DNI. Patient received IV heparin infusion ASA, PlaviX, statin, xarelto, beta sarah CHRONIC ATRIAL FIBRILLATION Rate is under control Continue oral targeted anticoagulation Bradycardia Most likely secondary to beta blockers I reduced dose of metoprolol PROSTATE CANCER s/p radiation in 2002 follows with urology. DIABETES type 2 Blood glucose levels under control Diabetes diet Insulin sliding scale. HYPERTENSION Blood pressures under control Continue home cardioprotective medications MORBID OBESITY complicating care DEPRESSION/ANXIETY Continue home meds SLEEP APNEA BIPAP daily at bedtime DISCHARGE MEDICATIONS: Please see below. ALLERGIES: Please see below. PHYSICAL EXAMINATION ON DISCHARGE: VITAL SIGNS: Please see below. Objective: VITAL SIGNS: Please see below GENERAL APPEARANCE: Morbidly obese male HEENT: Normocephalic, atraumatic. Mucous members moist and pink CARDIOVASCULAR: S1-S2, RRR LUNGS: Diminished lung sounds, especially in at the base ABDOMEN: Abdomen is soft and nontender, obese MUSCULOSKELETAL: Range of motion is intact in all 4 extremities NEUROLOGICAL: Cranial nerves II-12 are grossly intact. Speech is not dysarthric LABORATORY DATA: Please see below. IMAGING: Clinical: Acute renal insufficiency Technique: Real time aguirre scale ultrasound examination using curved array transducer. Findings: Evaluation is severely limited by body habitus and technical factors. Right pleural effusion noted. The right kidney measures 13.8 x 5.8 x 6.8 cm including 6.9 cm complex hypoechoic mid/lower pole lesion which may represent complex cyst versus mass. No obvious hydronephrosis. Left kidney is not visualized. Impression: Right pleural effusion. Right Kidney complex cyst versus mass. Left kidney not visualized. PROGNOSIS: Poor ACTIVITY: [As tolerated]. DIET: Cardiac/diabetes DISCHARGE PLAN: [facility] DISPOSITION: [facility]. 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 TIME SPENT ON DISCHARGE: Greater than 20 minutes. Vital Signs/I&Os Vital Signs Date Time Temp Pulse Resp B/P (MAP) Pulse Ox O2 Delivery O2 Flow Rate FiO2 09/19/19 09:38 142/71 09/19/19 09:00 50 09/19/19 08:00 95.4 18 94 Room Air 09/18/19 08:00 2.0 09/16/19 16:16 50 I&O- Last 24 Hours up to 6 AM 09/19/19 06:00 Intake Total 1235 ml Output Total 1255 ml Balance -20 ml Laboratory Data Labs 24H Laboratory Tests 2 09/18/19 20:05: Bedside Glucose (Misc Panel) 184H 09/19/19 06:48: Immature Granulocyte % (Auto) 0.3, Neutrophils (%) (Auto) 63.4, Lymphocytes (%) (Auto) 22.0L, Monocytes (%) (Auto) 9.9H, Eosinophils (%) (Auto) 3.7H, Basophils (%) (Auto) 0.7, Neutrophils # (Auto) 3.8, Lymphocytes # (Auto) 1.3L, Monocytes # (Auto) 0.6, Eosinophils # (Auto) 0.2, Basophils # (Auto) 0.0, Nucleated Red Blood Cells % (auto) 0.0, Anion Gap 5L, Glomerular Filtration Rate 25.9L, Calcium Level 9.0, Magnesium Level 2.1 CBC/BMP Laboratory Tests 09/19/19 06:48 FSBS Laboratory Tests Test 09/18/19 20:05 Range/Units Bedside Glucose (Misc Panel) 184 83-110 MG/DL Microbiology Microbiology 09/15/19 Blood Culture - Preliminary, Resulted No Growth after 72 hours. All specime... 09/14/19 Respiratory Virus Panel (PCR) (KRISTIN) - Final, Complete 09/14/19 Blood Culture - Preliminary, Resulted No Growth after 72 hours. All specime... Discharge Medications Scheduled Aspirin (Children's Aspirin) 81 Mg Tab.chew, 81 MG PO DAILY Atorvastatin Calcium (Atorvastatin Calcium) 80 Mg Tab, 80 MG PO 3XW, (Reported) SUN,SUN,SUN Clopidogrel Bisulfate (Clopidogrel) 75 Mg Tablet, 75 MG PO DAILY Enalapril Maleate (Enalapril Maleate) 20 Mg Tablet, 20 MG PO DAILY, (Reported) Ergocalciferol (Vitamin D2) (Vitamin D2) 50,000 Units Cap, 50,000 UNITS PO Q2WK, (Reported) Ferrous Sulfate (Ferrous Sulfate) 325 Mg Tablet, 325 MG PO DAILY, (Reported) Fluoxetine Hcl (Fluoxetine HCl) 20 Mg Cap, 20 MG PO DAILY, (Reported) Metoprolol Tartrate (Metoprolol Tartrate) 25 Mg Tablet, 25 MG PO DAILY Multivitamin/Iron/Folic Acid (Cerovite Advanced Form Tab) 1 Each Tablet, 1 TAB PO DAILY, (Reported) Omeprazole (Omeprazole) 20 Mg Cap, 20 MG PO DAILY, (Reported) Rivaroxaban (Xarelto) 20 Mg Tablet, 20 MG PO DAILY, (Reported) Sitagliptin (Januvia) 50 Mg Tablet, 50 MG PO DAILY, (Reported) Spironolactone (Spironolactone) 25 Mg Tab, 50 MG PO DAILY, (Reported) Temazepam (Temazepam) 30 Mg Cap, 60 MG PO QHS, (Reported) Torsemide (Torsemide) 20 Mg Tablet, 20 MG PO BID@, Venlafaxine HCl (Venlafaxine HCl ER) 75 Mg Cap, 75 MG PO DAILY, (Reported) Scheduled PRN Isosorbide Dinitrate (Isosorbide Dinitrate) 10 Mg Tablet, 10 MG PO BID PRN for chest pain Nitroglycerin (Nitrostat) 0.4 Mg Tab.subl, 0.4 MG SL Q5M PRN for CHEST PAIN Polyethylene Glycol 3350 (Polyethylene Glycol 3350) 17 Gm Powd.pack, 1 PKT PO D AILYPRN PRN for CONSTIPATION Miscellaneous Medications [Patient Comments] , (Reported) PATIENT UNCLEAR ABOUT MOST OF HIS MEDICATIONS. HE DID STATE HE TOOK HIS BLOOD THINNER. Allergies Coded Allergies: Penicillins (Verified Allergy, Unknown, 09/14/19) ALMA PATINO DO Sep 19, 2019 18:23
--- NOTE | 2019-09-19 20:34 | IPNPDOC ---
Text Note Date of Service The patient was seen on 09/19/19. NOTE This note pertains to the nephrology service with Elvia Brewer DO supervising my work. Please see E attestation below. SUBJECTIVE: Patient was seen at bedside in the progressive care unit this morning in the presence of his . He reports that his breathing is improving. He is currently on room air. He tells us that his discharge to the [facility] is planned today. He has no further complaints at this time. OBJECTIVE: VITALS: Please see below. GENERAL: Patient appears stated age, morbidly obese, and is sitting up in a recliner in no apparent acute distress. HEENT: EOMI. Tongue is moist. Neck veins are unable to be assessed secondary to body habitus. CARDIOVASCULAR: Heart sounds are mildly bradycardic and irregular, S1, S2. There is trace leg edema. PULMONARY: Breath sounds are diminished and distant and hard to hear over the BiPAP. There is no accessory muscle use. ABDOMEN: Soft, morbidly obese, nontender. GENITOURINARY: No Banks catheter present. INTEGUMENTARY: Skin is normal temperature and turgor. PSYCHOLOGICAL: Pt is calm and cooperative. He answers questions appropriately. Insight is good. INTAKE & OUTPUT: Intake yesterday was recorded as 1235 mL; urine output was 1680. Weight by bed scale today is 170.7 kg (same as yesterday) LABORATORY DATA: White count 6.0, hemoglobin 9.8, platelets 198. Sodium 137, potassium 4.0, BUN 79, creatinine 2.54 ASSESSMENT/PLAN: 1. Acute kidney injury (MICHELA) on chronic kidney disease (CKD), stage IIIB - Baseline creatinine is 1.8 to 2.0. MICHELA is likely secondary to decompensated heart failure. - He is diuresing satisfactorily with consistent improvement of his creatinine. He will be switched to torsemide 20 mg PO BID for outpatient diuresis. - Pt is cleared for discharge from a nephrology standpoint. We will be happy to follow up with Mr. Torres as an outpatient. 2. Decompensated systolic congestive heart failure - Volume status is improving. His daily weights are generally downtrending. His diuresis will continue as described in #1. 3. Right kidney complex cyst versus mass - Noncontrast CT will be considered on an outpatient basis to characterize this growth. 4. Hypertension - Blood pressures are acceptable and stable on his current regimen. His angiotensin-converting enzyme (ROSS) inhibitor remains on hold in view of acute kidney injury. He continues on metoprolol. 5. History of atrial fibrillation - Pt continues on Xarelto. Rate controlled by metoprolol. VS,Fishbone, I+O VS, Fishbone, I+O Laboratory Tests 09/19/19 06:48 Vital Signs Date Time Temp Pulse Resp B/P (MAP) Pulse Ox O2 Delivery O2 Flow Rate FiO2 09/19/19 09:38 142/71 09/19/19 09:00 50 09/19/19 08:00 95.4 18 94 Room Air 09/18/19 08:00 2.0 09/16/19 16:16 50 I&O- Last 24 Hours up to 6 AM 09/19/19 06:00 Intake Total 1235 ml Output Total 1255 ml Balance -20 ml GME ATTESTATION GME ATTESTATION My faculty preceptor for this patient encounter was physically present during the encounter and was fully available. All aspects of the patient interview, examination, medical decision making process, and medical care plan development were reviewed and approved by the faculty preceptor. The faculty preceptor is aware and concurs with the plan as stated in the body of this note and will attest to such by his/her cosignature. RASTA BEARDEN OMS-III Sep 19, 2019 20:34
--- NOTE | 2019-09-22 07:53 | IPN ---
DATE: 09/18/2019 Mr. Torres is seen sleeping in his bed this morning. He was laying flat. He was not using his BiPAP. He is calm. He is not in any acute distress. He states that he is glad his urinary catheter was removed. Otherwise, he is not having much trouble breathing. He feels as though he is getting better. He was able to get up out of bed and walk around his room and outside of his room. He did get winded from his activity, but otherwise he feels pretty well. No acute changes overnight. OBJECTIVE: VITAL SIGNS: Temperature of 97.8, pulse of 64, respiratory rate of 21, blood pressure of 113/87, pulse oximetry 94% on room air. Input and output: He is net negative 100 mL. He had about 3 to 4 liters of urine overnight. He current weighs 170 kg, which is down from when he came in. His body mass index (BMI) is 55.4. GENERAL: He is laying in bed, calm, cooperative, in no acute distress. His head is normocephalic, atraumatic. HEENT Exam: Pupils are equally round and reactive to light. Extraocular movements are intact. His mucous membranes are moist. Neck is supple with no thyromegaly and no lymphadenopathy. CHEST: He has even chest rise. He does appear to be using some accessory muscles of respiration from his belly. Lungs are clear to auscultation bilaterally with difficulty to auscultate due to his body habitus. HEART: Regular rate and rhythm with no murmurs, rubs or gallops. Normal S1 and S2. His abdomen is very protuberant and obese. He has positive bowel sounds. No masses. No organomegaly. EXTREMITIES: He has 1+ pitting edema in his lower extremities bilaterally. SKIN: He has no new rashes. LYMPHATICS: He has no lymphadenopathy in his cervical, posterior clavicular or femoral chain. NEURO: His cranial nerves II/XII are intact with no obvious focal deficit. PSYCHIATRIC: Normal mood and normal affect. He is awake, alert and oriented times three. LABORATORY: White blood cell count found to be 8.6, hemoglobin 10.1, hematocrit 32.7, platelet count of 233. On metabolic panel, his sodium is 139, potassium is 4.1, chloride is 102, his BUN is 82 and his creatinine is 3.08. His calcium is 8.6. He has got no new imaging or other labs. PROBLEMS: 1. Acute injury on chronic kidney disease stage III-B. His baseline creatinine is 1.82. Today his creatinine was 3.08 and it appears to be coming down. He is still making good urine. I have encouraged the patient to urinate in the urinal, so that we can quantify how much urine he is making. We have also cut down his Lasix 60 mg twice a day, oral. He is also continued on his torsemide at this time. 2. Decompensated systolic congestive heart failure. I believe his volume status is improving. His daily weights are down trending. He is on torsemide oral, torsemide 20 mg twice a day. He is not on Lasix anymore. 3. Right kidney complex cyst versus mass. We have already discussed this with the patient. Considering getting noncontrast imaging CT of the abdomen for further work up. Will wait for the patient to get out of bed in the intensive care unit (ICU) and be more stable. 4. Hypertension. Blood pressures are acceptable at this time. Still holding his ROSS inhibitor. Continue his metoprolol. 5. History of atrial fibrillation. Continue Xarelto renally dosed and rate control with beta blockers.
== END 2019-09-19 12:50 | DRG 280 ==
LOC: M ED 22:02 → M ED INP 09-15 00:13 → ENRESERVDT 09-15 01:01 → ENRESERVTM 09-15 01:01 → M ICU 09-15 01:56 → M PCU 09-18 23:11
PROVIDERS: ADMIT Internal Medicine; ATTEND Internal Medicine
DX: I21.4 Non-ST elevation (NSTEMI) myocardial infarction (principal); J96.01 Acute respiratory failure with hypoxia; I50.23 Acute on chronic systolic (congestive) heart failure; I13.0 Hypertensive heart and chronic kidney disease with heart failure and stage 1 through stage 4 chronic kidney disease, or unspecified chronic kidney disease; N17.9 Acute kidney failure, unspecified; I48.20 Chronic atrial fibrillation, unspecified; Z68.43 Body mass index [BMI] 50.0-59.9, adult; J90 Pleural effusion, not elsewhere classified; N18.3 Chronic kidney disease, stage 3 (moderate); Z85.46 Personal history of malignant neoplasm of prostate; R00.1 Bradycardia, unspecified; E11.22 Type 2 diabetes mellitus with diabetic chronic kidney disease; E66.01 Morbid (severe) obesity due to excess calories; F32.9 Major depressive disorder, single episode, unspecified; F41.8 Other specified anxiety disorders; G47.33 Obstructive sleep apnea (adult) (pediatric); Z66 Do not resuscitate; Z91.11 Patient's noncompliance with dietary regimen; Z79.899 Other long term (current) drug therapy; Z88.0 Allergy status to penicillin; F17.200 Nicotine dependence, unspecified, uncomplicated; Z79.82 Long term (current) use of aspirin; Z79.01 Long term (current) use of anticoagulants

== ENCOUNTER → 2019-09-23 | Outpatient (REF) | payer MEDICARE, BC ==
[~2019-09-23] MED LIST changes: +ASPI81CH8 PO; +CEROTAB PO; +CLOP75TA2 PO; +FERR1TAB8 PO; +ISOS10TA PO; +METO1TAB87 PO; +NITR4TASL SL; +PATIENT COMMENTS; +PEG1POW PO; +SITA50TAB PO; +TORS20TA2 PO; +VITA50005 PO; +XARE20TA PO
[2019-09-23 07:46] LABS: CALCIUM LEVEL 9.3 MG/DL (8.8-10.2); CREATININE FOR GFR 2.56 MG/DL (0.70-1.30); GLOMERULAR FILTRATION RATE 25.7 (>35); POTASSIUM SERUM 4.3 MEQ/L (3.5-5.1)
== END ==
LOC: SKLAB5 01:54
PROVIDERS: ATTEND Internal Medicine
DX: I50.9 Heart failure, unspecified (principal)

== ENCOUNTER → 2019-09-25 | Outpatient (REF) ==
[2019-09-25 08:40] LABS: HEMATOCRIT 31.6 % (42.0-52.0); HEMOGLOBIN 9.6 g/dl (13.5-17.5); MEAN CORPUSCULAR HEMOGLOBIN 21.1 pg (27.0-33.0); MEAN CORPUSCULAR HGB CONC 30.4 g/dl (32.0-36.5); MEAN CORPUSCULAR VOLUME 69.5 fl (80.0-96.0); PLATELET COUNT, AUTOMATED 176 10^3/uL (150-450); RED BLOOD COUNT 4.55 10^6/uL (4.30-6.10); WHITE BLOOD COUNT 7.4 10^3/uL (4.0-10.0)
[2019-09-25 09:03] LABS: ALBUMIN 3.2 GM/DL (3.2-5.2); CALCIUM LEVEL 8.9 MG/DL (8.8-10.2); CREATININE FOR GFR 2.46 MG/DL (0.70-1.30); GLOMERULAR FILTRATION RATE 26.9 (>35); PHOSPHORUS LEVEL 4.1 MG/DL (2.5-4.9); POTASSIUM SERUM 4.5 MEQ/L (3.5-5.1)
[2019-09-25 09:14] LABS: PTH INTACT 267.2 PG/ML (18.5-88.0); TOTAL 25(OH) VITAMIN D 61.4 NG/ML (30.0-100.0)
== END ==
LOC: SKLAB5 08:02
PROVIDERS: ATTEND Internal Medicine
DX: D64.9 Anemia, unspecified (principal); I50.9 Heart failure, unspecified; E11.9 Type 2 diabetes mellitus without complications

== ENCOUNTER → 2019-09-29 | Outpatient (REF) ==
[2019-09-29 07:58] LABS: BASO # 0.1 10^3/uL (0.0-0.2); BASO % 0.9 % (0.0-1.0); EOS # 0.2 10^3/uL (0.0-0.5); EOS % 2.7 % (0.0-3.0); HEMOGLOBIN 9.5 g/dl (13.5-17.5); LYMPH # 1.3 10^3/uL (1.5-5.0); MEAN CORPUSCULAR HEMOGLOBIN 21.2 pg (27.0-33.0); MEAN CORPUSCULAR HGB CONC 30.6 g/dl (32.0-36.5); MONO # 0.7 10^3/uL (0.0-0.8); MONO % 10.5 % (0.0-5.0); NEUTROPHILS # 4.6 10^3/uL (1.5-8.5); NEUTROPHILS % 66.5 % (36.0-66.0); PLATELET COUNT, AUTOMATED 184 10^3/uL (150-450); RED BLOOD COUNT 4.49 10^6/uL (4.30-6.10)
[2019-09-29 10:38] LABS: AMORPHOUS SEDIMENT SMALL (NEGATIVE); APPEARANCE, URINE HAZY (CLEAR); BACTERIA, URINE AUTO 2+ (NEGATIVE); BILIRUBIN, URINE AUTO NEGATIVE (NEGATIVE); BLOOD, URINE BLOOD NEGATIVE (NEGATIVE); COLOR, URINE YELLOW (YELLOW); GLUCOSE, URINE (UA) AUTO NEGATIVE (NEGATIVE); KETONE, URINE AUTO NEGATIVE (NEGATIVE); LEUKOCYTE ESTERASE, URINE AUTO 3+ (NEGATIVE); MUCUS, URINE SMALL (NEGATIVE); NITRITE, URINE AUTO NEGATIVE (NEGATIVE); PROTEIN, URINE AUTO NEGATIVE (NEGATIVE); RBC, URINE AUTO 8 /HPF (0-3); SPECIFIC GRAVITY URINE AUTO 1.015 (1.002-1.035); SQUAMOUS EPITHELIAL CELL UR AU 2 /HPF (0-6); UROBILINOGEN, URINE AUTO 0.2 mg/dL (0.0-2.0); WBC, URINE AUTO 160 /HPF (0-3)
== END ==
LOC: SKLAB5 08:18
PROVIDERS: ATTEND Internal Medicine
DX: N18.9 Chronic kidney disease, unspecified (principal)

== ENCOUNTER → 2019-10-02 | Outpatient (REF) ==
[2019-10-02 09:33] LABS: ALBUMIN 3.5 GM/DL (3.2-5.2); CALCIUM LEVEL 9.3 MG/DL (8.8-10.2); CREATININE FOR GFR 2.77 MG/DL (0.70-1.30); GLOMERULAR FILTRATION RATE 23.4 (>35); PHOSPHORUS LEVEL 4.3 MG/DL (2.5-4.9); POTASSIUM SERUM 4.7 MEQ/L (3.5-5.1)
== END ==
LOC: SKLAB5 07:40
PROVIDERS: ATTEND Internal Medicine
DX: N18.9 Chronic kidney disease, unspecified (principal)

== ENCOUNTER → 2019-11-26 | Outpatient (REF) | payer MEDICARE, BC | LOC: M PLALAB 10:43 | PROVIDERS: ATTEND Urology | DX: C61 Malignant neoplasm of prostate (principal) ==

== ENCOUNTER → 2020-01-12 | Outpatient (CLI) | payer MEDICARE, BC ==
[~2020-01-12] MED LIST changes: -METF-791 PO; +METF-838 PO
--- NOTE | 2020-01-12 15:20 | REP ---
REASON: Renal disease. The lack of intravenous contrast decreases the sensitivity of the exam. There are no priors for comparison. The lung bases are essentially clear. Limited evaluation of the solid intra-abdominal organs and gallbladder show no gross abnormalities. Seen arising from the interpolar region of the right kidney, there is a nearly round 6.3 x 5.4 x 7 cm sized solid renal mass. Arising from the inferior pole of the right kidney, there is a round 2.8 cm sized low density mass which has somewhat higher water density Hounsfield unit readings. There is no evidence of a left renal mass. Seen arising from the anterior limb of the right adrenal gland, there is a 1.8 cm sized nodule which has consistently low Hounsfield unit readings. Left adrenal glands is unremarkable. The abdominal aorta and para-aortic regions are within normal limits. The bowel loops and their mesenteries are within normal limits. There is no free fluid or free air. CT PELVIS: The bowel loops and their mesenteries are within normal limits. There is no free fluid or free air. There is no evidence of a pelvic mass. Bone window technique throughout the exam shows the osseous structures to be within normal limits for the patient's age. IMPRESSION: 1. There is a large right renal mass. 2. There is a small right renal cyst. 3. The exam is limited without intravenous contrast. Electronically Signed by Jona Lundy DO 01/12/2020 04:13 P
== END ==
LOC: M RAD 13:13
PROVIDERS: ATTEND Internal Medicine Nephrology
DX: N18.3 Chronic kidney disease, stage 3 (moderate) (principal); D41.01 Neoplasm of uncertain behavior of right kidney; N28.1 Cyst of kidney, acquired; N28.89 Other specified disorders of kidney and ureter

== ENCOUNTER → 2020-02-24 | Outpatient (REF) | payer MEDICARE, BC ==
[~2020-02-24] MED LIST changes: -ENAL20TA PO; +ENAL20TA11 PO
== END ==
LOC: M LABSMT 10:35
PROVIDERS: ATTEND Urology
DX: C61 Malignant neoplasm of prostate (principal)

== ENCOUNTER → 2020-02-27 | Outpatient (CLI) | payer MEDICARE, BC ==
[~2020-02-27] MED LIST changes: +GASTROGRAFIN SOLUTION 30ML (Q9963) As Ordered ONE; +ISOVUE-370 76% 100ML VIAL As Ordered ONE
--- NOTE | 2020-04-16 11:42 | REP ---
CT ABDOMEN AND PELVIS WITHOUT CONTRAST HISTORY: Renal mass. COMPARISON: 01/12/2020. TECHNIQUE: CT abdomen and pelvis performed with oral contrast. No IV contrast was administered; however, an attempt was made to administer IV contrast, but there was contrast infiltration into the soft tissue, approximately 72 mL. No further attempts were made for intravenous contrast administration. FINDINGS: In the visualized lung bases, there is interstitial fibrotic change. Liver, spleen, and left adrenal are unremarkable. There is a right adrenal adenoma, which measures 1.9 cm. Pancreas is grossly unremarkable. Once again, there is a heterogeneous mass of the mid right kidney, which measures approximately 6.6 cm similar to the prior study. There is a cyst of the lower pole of the right kidney 3 cm in diameter. There is no hydronephrosis bilaterally. There is moderate bilateral cortical thinning. There is moderate atherosclerotic calcification of the abdominal aorta without aneurysm. There is no adenopathy. There is no free air or free fluid. There is no bowel wall thickening. Due to abdominal girth, the very lateral aspects of portions of the mid abdomen are not visualized. Sigmoid diverticulosis is noted. No pelvic mass is seen. Urinary bladder is mildly distended and grossly unremarkable. There are degenerative changes of the spine. IMPRESSION: Right renal mass again noted similar to the prior examination measuring about 6.6 cm in maximum diameter. Definite internal solid components are seen. There is also a benign appearing cyst of the lower pole of the right kidney. There is no adenopathy. There is a right adrenal adenoma. There is moderate bilateral renal atrophy. Postcontrast imaging was not obtained as intravenous contrast administration resulted in infiltration into the soft tissue at the IV site and further intravenous contrast administration was not pursued. MTDD
== END ==
LOC: M RAD 09:04
PROVIDERS: ATTEND Internal Medicine Nephrology
DX: D41.01 Neoplasm of uncertain behavior of right kidney (principal)
CPT/HCPCS: 74177; Q9963; Q9967

== ENCOUNTER 2020-08-03 11:42 | Emergency (ER) | payer BC, MEDICARE ==
[~2020-08-03 11:42] MED LIST changes: -GASTROGRAFIN SOLUTION 30ML (Q9963) As Ordered ONE; -ISOVUE-370 76% 100ML VIAL As Ordered ONE
[2020-08-03] MEDS ORDERED: INDOMETHACIN 25 MG CAP PO ONE (13:00)
[2020-08-03 13:16] LABS: HEMATOCRIT 33.4 % (42.0-52.0); HEMOGLOBIN 9.9 g/dl (13.5-17.5); MEAN CORPUSCULAR HEMOGLOBIN 21.6 pg (27.0-33.0); MEAN CORPUSCULAR HGB CONC 29.6 g/dl (32.0-36.5); MEAN CORPUSCULAR VOLUME 72.8 fl (80.0-96.0); PLATELET COUNT, AUTOMATED 176 10^3/uL (150-450); RED BLOOD COUNT 4.59 10^6/uL (4.30-6.10)
[2020-08-03 13:42] LABS: CALCIUM LEVEL 8.9 MG/DL (8.8-10.2); GLOMERULAR FILTRATION RATE 34.1 (>35); POTASSIUM SERUM 4.4 MEQ/L (3.5-5.1); URIC ACID 9.9 MG/DL (3.5-7.2)
[2020-08-03] MEDS ORDERED: INDO-16 PO (13:51)
[2020-08-03 17:32] VITALS: BP 173/85
== END 2020-08-03 17:34 | disposition home or self-care (01) ==
LOC: EDBD 11:42 → M ED 11:42
DX: M10.071 Idiopathic gout, right ankle and foot (principal); E11.9 Type 2 diabetes mellitus without complications; I10 Essential (primary) hypertension; E66.01 Morbid (severe) obesity due to excess calories; C61 Malignant neoplasm of prostate; Z88.0 Allergy status to penicillin; Z79.899 Other long term (current) drug therapy; Z79.02 Long term (current) use of antithrombotics/antiplatelets; Z79.82 Long term (current) use of aspirin; Z79.01 Long term (current) use of anticoagulants

== ENCOUNTER → 2020-08-25 | Outpatient (REF) | payer MEDICARE ==
[~2020-08-25] MED LIST changes: +INDO-16 PO
[2020-08-25 12:46] LABS: BASO % 0.4 % (0.0-1.0); EOS # 0.2 10^3/uL (0.0-0.5); EOS % 2.7 % (0.0-3.0); HEMATOCRIT 35.1 % (42.0-52.0); HEMOGLOBIN 10.1 g/dl (13.5-17.5); LYMPH # 1.1 10^3/uL (1.5-5.0); LYMPH % 13.2 % (24.0-44.0); MEAN CORPUSCULAR HEMOGLOBIN 20.7 pg (27.0-33.0); MEAN CORPUSCULAR HGB CONC 28.8 g/dl (32.0-36.5); MEAN CORPUSCULAR VOLUME 71.9 fl (80.0-96.0); MONO # 0.6 10^3/uL (0.0-0.8); MONO % 7.2 % (0.0-5.0); NEUTROPHILS # 6.1 10^3/uL (1.5-8.5); NEUTROPHILS % 76.3 % (36.0-66.0); PLATELET COUNT, AUTOMATED 160 10^3/uL (150-450); RED BLOOD COUNT 4.88 10^6/uL (4.30-6.10)
[2020-08-25 13:13] LABS: CALCIUM LEVEL 10.1 MG/DL (8.8-10.2); CREATININE FOR GFR 2.3 MG/DL (0.70-1.30); POTASSIUM SERUM 4.4 MEQ/L (3.5-5.1); PROSTATIC SPECIFIC AG MONITOR 2.56 NG/ML (< 4.00)
[2020-08-25 13:21] LABS: TOTAL 25(OH) VITAMIN D 71.8 NG/ML (30.0-100.0)
[2020-08-25 13:37] LABS: HEMOGLOBIN A1c 7.7 %
== END ==
LOC: M LAB REF 11:47
PROVIDERS: ATTEND Family Medicine
DX: E55.9 Vitamin D deficiency, unspecified (principal); C61 Malignant neoplasm of prostate; I50.20 Unspecified systolic (congestive) heart failure; E11.9 Type 2 diabetes mellitus without complications; M10.9 Gout, unspecified; Z79.899 Other long term (current) drug therapy

== ENCOUNTER → 2020-10-06 | Outpatient (REF) | payer BC, MEDICARE ==
[~2020-10-06] MED LIST changes: -PEG1POW PO; +POLY17PO18 PO
[2020-10-06 12:46] LABS: CREATININE FOR GFR 2.81 MG/DL (0.70-1.30); POTASSIUM SERUM 4.6 MEQ/L (3.5-5.1)
== END ==
LOC: M LAB REF 11:44
PROVIDERS: ATTEND Family Medicine
DX: I50.20 Unspecified systolic (congestive) heart failure (principal)

== ENCOUNTER → 2020-11-23 | Outpatient (REF) | payer BC, MEDICARE ==
[2020-11-23 18:30] LABS: BASO % 0.6 % (0.0-1.0); EOS # 0.2 10^3/uL (0.0-0.5); EOS % 3.7 % (0.0-3.0); HEMATOCRIT 29.7 % (42.0-52.0); HEMOGLOBIN 8.3 g/dl (13.5-17.5); LYMPH # 0.9 10^3/uL (1.5-5.0); LYMPH % 17.9 % (24.0-44.0); MEAN CORPUSCULAR HEMOGLOBIN 20.4 pg (27.0-33.0); MEAN CORPUSCULAR HGB CONC 27.9 g/dl (32.0-36.5); MONO # 0.5 10^3/uL (0.0-0.8); MONO % 10.3 % (2.0-8.0); NEUTROPHILS # 3.3 10^3/uL (1.5-8.5); NEUTROPHILS % 67.3 % (36.0-66.0); PLATELET COUNT, AUTOMATED 198 10^3/uL (150-450); RED BLOOD COUNT 4.07 10^6/uL (4.30-6.10); WHITE BLOOD COUNT 4.9 10^3/uL (4.0-10.0)
[2020-11-23 20:14] LABS: HEMOGLOBIN A1c 5.4 %
== END ==
LOC: M LAB REF 17:22
PROVIDERS: ATTEND Family Medicine
DX: M10.9 Gout, unspecified (principal); E11.9 Type 2 diabetes mellitus without complications; I50.20 Unspecified systolic (congestive) heart failure

== ENCOUNTER → 2020-12-09 | Outpatient (REF) | payer BC, MEDICARE ==
[2020-12-09 13:01] LABS: ALBUMIN 3.5 GM/DL (3.2-5.2); BILIRUBIN,TOTAL 0.7 MG/DL (0.2-1.0); CALCIUM LEVEL 10.3 MG/DL (8.8-10.2); CREATININE FOR GFR 2.61 MG/DL (0.70-1.30); POTASSIUM SERUM 4.8 MEQ/L (3.5-5.1); TOTAL PROTEIN 7.3 GM/DL (6.4-8.2)
== END ==
LOC: M LAB REF 11:39
PROVIDERS: ATTEND Family Medicine
DX: E11.9 Type 2 diabetes mellitus without complications (principal)

== ENCOUNTER → 2021-06-10 | Outpatient (CLI) | payer MEDICARE ==
[~2021-06-10] MED LIST changes: +ERGO500029 PO; -VITA50005 PO
[2021-06-10 16:12] LABS: HEMATOCRIT 40.1 % (42.0-52.0); HEMOGLOBIN 11.6 g/dl (13.5-17.5); MEAN CORPUSCULAR HEMOGLOBIN 20.9 pg (27.0-33.0); MEAN CORPUSCULAR HGB CONC 28.9 g/dl (32.0-36.5); MEAN CORPUSCULAR VOLUME 72.4 fl (80.0-96.0); PLATELET COUNT, AUTOMATED 173 10^3/uL (150-450); RED BLOOD COUNT 5.54 10^6/uL (4.30-6.10); WHITE BLOOD COUNT 5.8 10^3/uL (4.0-10.0)
[2021-06-10 16:37] LABS: ALBUMIN 3.4 GM/DL (3.2-5.2); BILIRUBIN,TOTAL 0.7 MG/DL (0.2-1.0); CALCIUM LEVEL 9.6 MG/DL (8.8-10.2); CREATININE FOR GFR 2.41 MG/DL (0.70-1.30); GLOMERULAR FILTRATION RATE 27.4 (>35); POTASSIUM SERUM 4.6 MEQ/L (3.5-5.1); TOTAL PROTEIN 7.1 GM/DL (6.4-8.2); URIC ACID 7.6 MG/DL (3.5-7.2)
[2021-06-10 17:19] LABS: HEMOGLOBIN A1c 8.1 %
== END ==
LOC: M WUC 12:13
PROVIDERS: ATTEND Family Medicine
DX: E55.9 Vitamin D deficiency, unspecified (principal); E11.9 Type 2 diabetes mellitus without complications; M10.9 Gout, unspecified

== ENCOUNTER → 2021-10-11 | Outpatient (CLI) | payer MEDICARE ==
[~2021-10-11] MED LIST changes: -ISOS10TA PO; +ISOS10TA9 PO
[2021-10-11 19:20] LABS: HEMATOCRIT 39.9 % (42.0-52.0); HEMOGLOBIN 11.6 g/dl (13.5-17.5); MEAN CORPUSCULAR HGB CONC 29.1 g/dl (32.0-36.5); MEAN CORPUSCULAR VOLUME 72.3 fl (80.0-96.0); PLATELET COUNT, AUTOMATED 183 10^3/uL (150-450); RED BLOOD COUNT 5.52 10^6/uL (4.30-6.10); WHITE BLOOD COUNT 6.8 10^3/uL (4.0-10.0)
[2021-10-11 19:56] LABS: ALBUMIN 3.5 GM/DL (3.2-5.2); BILIRUBIN,TOTAL 0.7 MG/DL (0.2-1.0); CALCIUM LEVEL 9.6 MG/DL (8.8-10.2); CREATININE FOR GFR 3.08 MG/DL (0.70-1.30); GLOMERULAR FILTRATION RATE 20.6 (>35); POTASSIUM SERUM 5.1 MEQ/L (3.5-5.1); URIC ACID 6.8 MG/DL (3.5-7.2)
[2021-10-11 20:00] LABS: HEMOGLOBIN A1c 7.9 %
[2021-10-11 20:03] LABS: TOTAL 25(OH) VITAMIN D 71.1 NG/ML (30.0-100.0)
== END ==
LOC: M WUC 15:22
PROVIDERS: ATTEND Family Medicine
DX: E55.9 Vitamin D deficiency, unspecified (principal); M10.9 Gout, unspecified; E11.9 Type 2 diabetes mellitus without complications; I50.20 Unspecified systolic (congestive) heart failure

== ENCOUNTER 2022-02-08 11:30 | Inpatient (IN) | payer MEDICARE ==
[~2022-02-08] VITALS: Ht 177.8 cm; Wt 175.4 kg
[2022-02-08 12:16] LABS: VENOUS BASE EXCESS -1.2 (-2.0-2.0); VENOUS HCO3 25.5 MEQ/L (23.0-27.0); VENOUS O2 SATURATION 74.2 % (60.0-80.0); VENOUS PARTIAL PRESSURE CO2 51.1 mmHg (38.0-50.0); VENOUS PARTIAL PRESSURE O2 41.4 mmHg (30.0-50.0); VENOUS PH 7.316 UNITS (7.330-7.430); VENOUS TOTAL CO2 27.1 MEQ/L (24.0-28.0)
[2022-02-08 12:19] LABS: BASO % 0.5 % (0.0-1.0); EOS # 0.1 10^3/uL (0.0-0.5); EOS % 1.6 % (0.0-3.0); HEMATOCRIT 33.7 % (42.0-52.0); HEMOGLOBIN 10.2 g/dl (13.5-17.5); LYMPH # 0.8 10^3/uL (1.5-5.0); LYMPH % 11.4 % (24.0-44.0); MEAN CORPUSCULAR HEMOGLOBIN 21.8 pg (27.0-33.0); MEAN CORPUSCULAR HGB CONC 30.3 g/dl (32.0-36.5); MEAN CORPUSCULAR VOLUME 72.2 fl (80.0-96.0); MONO # 0.5 10^3/uL (0.0-0.8); MONO % 6.9 % (2.0-8.0); NEUTROPHILS # 5.9 10^3/uL (1.5-8.5); NEUTROPHILS % 79.3 % (36.0-66.0); PLATELET COUNT, AUTOMATED 170 10^3/uL (150-450); RED BLOOD COUNT 4.67 10^6/uL (4.30-6.10); WHITE BLOOD COUNT 7.4 10^3/uL (4.0-10.0)
[2022-02-08] MEDS: MORPHINE 2 MG/ML 1ML VIAL IV PRN ×2 (12:29→13:21)
[2022-02-08 12:52] LABS: CALCIUM LEVEL 9.8 MG/DL (8.8-10.2); CREATININE FOR GFR 3.16 MG/DL (0.70-1.30); FREE T4 1.12 NG/DL (0.76-1.46); MAGNESIUM LEVEL 2.6 MG/DL (1.8-2.4); POTASSIUM SERUM 5.2 MEQ/L (3.5-5.1); THYROID STIMULATING HORMONE 5.89 uIU/ML (0.358-3.740)
[2022-02-08 12:53] LABS: INR 2.59; PROTHROMBIN TIME 28.1 SECONDS (12.7-14.5)
[2022-02-08 13:23] LABS: RSV AMPLIFICATION NEGATIVE (NEGATIVE)
[2022-02-08] MEDS ORDERED: LIDOCAINE W/EPINEPHRINE 1% 20ML VIAL SC ONE (14:00)
[2022-02-08] MEDS ORDERED: BOOSTRIX/ADACEL VACCINE (DIPHTH/PERTUSS/ACELL/TETANUS) 0.5ML SYR IM.IMMUN ONE (14:40)
[2022-02-08] MEDS ORDERED: FAMO40TA3 PO (15:18)
[2022-02-08] MEDS ORDERED: SPIR50TA4 PO (15:18)
[2022-02-08] MEDS ORDERED: HYDR10TAB PO (15:18)
[2022-02-08] MEDS ORDERED: CLOP75TA2 PO (15:18)
[2022-02-08] MEDS ORDERED: GLIP5TAB20 PO (15:18)
[2022-02-08] MEDS ORDERED: METO1TAB87 PO (15:18)
[2022-02-08] MEDS ORDERED: ALLO100T PO (15:18)
[2022-02-08] MEDS ORDERED: TORS20TA2 PO (15:18)
[2022-02-08] MEDS ORDERED: ASPI81TA26 PO (15:18)
[2022-02-08] MEDS ORDERED: ISOS10TA3 PO (15:18)
[2022-02-08] MEDS ORDERED: INDO-16 PO (15:18)
[2022-02-08] MEDS ORDERED: CALC1CAP31 PO (15:18)
[2022-02-08] MEDS ORDERED: NITR0.4S14 SL (15:18)
[2022-02-08] MEDS ORDERED: HOME MED LIST COMPLETE! XX SCH (15:20)
[2022-02-08] MEDS ORDERED: ISOSORBIDE DIN (ISORDIL) 10MG TAB PO PRN (15:55)
[2022-02-08] MEDS ORDERED: **hydrALAZINE HCL** 25 MG TAB PO ONE (16:15)
[2022-02-08] MEDS: TORSEMIDE 20 MG TAB PO SCH (16:48)
[2022-02-08] MEDS ORDERED: HYDROMORPHONE HCL 0.5 MG/ 0.5 ML SYRINGE (J1170 PER 1) IV PRN (17:10)
[2022-02-08 17:26] LABS: CALCIUM LEVEL 10.3 MG/DL (8.8-10.2); CREATININE FOR GFR 3.18 MG/DL (0.70-1.30); GLOMERULAR FILTRATION RATE 19.9 (>35); POTASSIUM SERUM 5.2 MEQ/L (3.5-5.1)
[2022-02-08 18:37] VITALS: BP 176/80
[2022-02-08] MEDS ORDERED: LIDOCAINE 1% SDV 30ML VIAL As Ordered ONE (19:57)
[2022-02-08] MEDS ORDERED: TORSEMIDE 20 MG TAB PO ONE (20:00)
[2022-02-08] MEDS ORDERED: propofoL 200 MG/20 ML VIAL As Ordered ONE (20:02)
[2022-02-08] MEDS ORDERED: LIDOCAINE 2% INJ 100 MG/5 ML SYRINGE As Ordered ONE (20:02)
[2022-02-08] MEDS ORDERED: KETAMINE INJ 500 MG/5 ML VIAL As Ordered ONE (20:03)
[2022-02-08] MEDS ORDERED: LR 1,000 ML IV SCH (20:30)
[2022-02-08] MEDS ORDERED: oxyCODONE 5MG TAB PO PRN (20:30)
[2022-02-08] MEDS ORDERED: ONDANSETRON 4MG 2ML VIAL IV PRN (20:30)
[2022-02-08 21:18] VITALS: BP 134/85
[2022-02-08] MEDS: FAMOTIDINE 20 MG TAB PO SCH (21:24)
[2022-02-08] MEDS: **hydrALAZINE** 10 MG TAB PO SCH (21:24)
[2022-02-08] MEDS: TEMAZEPAM 15 MG CAP PO SCH (21:26)
[2022-02-08 23:35] VITALS: BP 162/71
[2022-02-09 04:10] VITALS: BP 119/59
[2022-02-09 06:00] LABS: HEMATOCRIT 31.9 % (42.0-52.0); HEMOGLOBIN 9.6 g/dl (13.5-17.5); MEAN CORPUSCULAR HEMOGLOBIN 21.7 pg (27.0-33.0); MEAN CORPUSCULAR HGB CONC 30.1 g/dl (32.0-36.5); MEAN CORPUSCULAR VOLUME 72.2 fl (80.0-96.0); PLATELET COUNT, AUTOMATED 166 10^3/uL (150-450); RED BLOOD COUNT 4.42 10^6/uL (4.30-6.10); WHITE BLOOD COUNT 7.4 10^3/uL (4.0-10.0)
[2022-02-09 06:23] LABS: CALCIUM LEVEL 9.8 MG/DL (8.8-10.2); CREATININE FOR GFR 3.09 MG/DL (0.70-1.30); GLOMERULAR FILTRATION RATE 20.6 (>35); MAGNESIUM LEVEL 2.5 MG/DL (1.8-2.4); PHOSPHORUS LEVEL 4.6 MG/DL (2.5-4.9); POTASSIUM SERUM 5.6 MEQ/L (3.5-5.1)
[2022-02-09] MEDS ORDERED: DEXTROSE 50% 50 ML SYRINGE IV STA (06:52)
[2022-02-09] MEDS ORDERED: HumuLIN R (REGULAR) INSULIN (NovoLIN R) **100U/ML** PER UNIT IV STA (06:52)
[2022-02-09] MEDS ORDERED: SOD POLYSTYRENE SULFONATE SUSP 15GM 60ML UD PO ONE (07:00)
[2022-02-09 07:23] VITALS: BP 120/85
[2022-02-09] MEDS: RIVAROXABAN 20MG TAB (XARELTO) PO SCH (07:49)
[2022-02-09] MEDS ORDERED: CALCIUM GLUCONATE 1,000 MG in D5W MINI-BAG PLUS 100 ML IV ONE (08:00)
[2022-02-09] MEDS ORDERED: METOPROLOL TART 25 MG TABLET PO SCH (09:00)
[2022-02-09] MEDS ORDERED: PATIROMER SORBITEX CALCIUM 8.4 GM POWDER PACKET (VELTASSA) PO ONE (09:00)
[2022-02-09] MEDS: CLOPIDOGREL 75 MG TAB PO SCH (09:27)
[2022-02-09] MEDS: CALCITRIOL 0.25 MCG CAP (S0169) PO SCH (09:27)
[2022-02-09] MEDS: FERROUS SULFATE 325MG TAB PO SCH (09:27)
[2022-02-09] MEDS: TORSEMIDE 20 MG TAB PO SCH ×2 (09:27→16:44)
[2022-02-09] MEDS: VENLAFAXINE **XR** 75MG CAPSULE PO SCH (09:27)
[2022-02-09] MEDS: allopurinoL 100 MG TAB PO SCH (09:27)
[2022-02-09] MEDS: FLUoxetine 20MG CAP PO SCH (09:27)
[2022-02-09] MEDS: ASPIRIN 81MG ENTERIC TABLET PO SCH (09:27)
[2022-02-09] MEDS: **hydrALAZINE** 10 MG TAB PO SCH ×3 (09:28→20:54)
[2022-02-09] MEDS ORDERED: metOLazone 2.5 MG TAB PO ONE (10:00)
[2022-02-09 12:00] VITALS: BP 160/68
[2022-02-09 13:49] LABS: CALCIUM LEVEL 9.9 MG/DL (8.8-10.2); CREATININE FOR GFR 3.17 MG/DL (0.70-1.30); POTASSIUM SERUM 4.6 MEQ/L (3.5-5.1)
[2022-02-09 16:10] VITALS: BP 162/71
[2022-02-09 19:35] VITALS: BP 162/70
[2022-02-09] MEDS: TEMAZEPAM 15 MG CAP PO SCH (20:55)
[2022-02-09] MEDS: FAMOTIDINE 20 MG TAB PO SCH (20:55)
[2022-02-10] VITALS (11 sets, daily range): BP systolic 131–218; BP diastolic 61–87
[2022-02-10 05:26] LABS: HEMATOCRIT 28.2 % (42.0-52.0); HEMOGLOBIN 8.5 g/dl (13.5-17.5); MEAN CORPUSCULAR HEMOGLOBIN 21.6 pg (27.0-33.0); MEAN CORPUSCULAR HGB CONC 30.1 g/dl (32.0-36.5); MEAN CORPUSCULAR VOLUME 71.8 fl (80.0-96.0); PLATELET COUNT, AUTOMATED 149 10^3/uL (150-450); RED BLOOD COUNT 3.93 10^6/uL (4.30-6.10); WHITE BLOOD COUNT 6.2 10^3/uL (4.0-10.0)
[2022-02-10 05:51] LABS: CALCIUM LEVEL 9.3 MG/DL (8.8-10.2); CREATININE FOR GFR 3.04 MG/DL (0.70-1.30); MAGNESIUM LEVEL 2.2 MG/DL (1.8-2.4); PERCENT SATURATION 9.1 % (19.7-50.0); PHOSPHORUS LEVEL 4.3 MG/DL (2.5-4.9)
[2022-02-10] MEDS: ASPIRIN 81MG ENTERIC TABLET PO SCH (08:25)
[2022-02-10] MEDS: allopurinoL 100 MG TAB PO SCH (08:26)
[2022-02-10] MEDS: FLUoxetine 20MG CAP PO SCH (08:26)
[2022-02-10] MEDS: CALCITRIOL 0.25 MCG CAP (S0169) PO SCH (08:26)
[2022-02-10] MEDS: FERROUS SULFATE 325MG TAB PO SCH (08:26)
[2022-02-10] MEDS: TORSEMIDE 20 MG TAB PO SCH ×2 (08:26→16:45)
[2022-02-10] MEDS: VENLAFAXINE **XR** 75MG CAPSULE PO SCH (08:26)
[2022-02-10] MEDS: CLOPIDOGREL 75 MG TAB PO SCH (08:27)
[2022-02-10] MEDS: RIVAROXABAN 20MG TAB (XARELTO) PO SCH (08:27)
[2022-02-10] MEDS: ATORVASTATIN 20 MG TAB PO SCH (08:27)
[2022-02-10] MEDS: **hydrALAZINE** 10 MG TAB PO SCH ×3 (08:27→20:01)
[2022-02-10 09:37] LABS: PTH INTACT 173.3 PG/ML (18.5-88.0); TOTAL 25(OH) VITAMIN D 70.2 NG/ML (30.0-100.0)
[2022-02-10] MEDS ORDERED: FERRIC CARBOXYMALTOSE INJ 750 MG, VIAL MATE ADAPTER 1 EACH in NS 250 ML IV ONE (11:00)
[2022-02-10] MEDS: TEMAZEPAM 15 MG CAP PO SCH (20:01)
[2022-02-10] MEDS: FAMOTIDINE 20 MG TAB PO SCH (20:01)
[2022-02-11] VITALS: BP 149/65
[2022-02-11 03:30] VITALS: BP 131/60
[2022-02-11 05:31] LABS: HEMATOCRIT 28.9 % (42.0-52.0); HEMOGLOBIN 8.6 g/dl (13.5-17.5); MEAN CORPUSCULAR HEMOGLOBIN 21.2 pg (27.0-33.0); MEAN CORPUSCULAR HGB CONC 29.8 g/dl (32.0-36.5); MEAN CORPUSCULAR VOLUME 71.4 fl (80.0-96.0); PLATELET COUNT, AUTOMATED 153 10^3/uL (150-450); RED BLOOD COUNT 4.05 10^6/uL (4.30-6.10); WHITE BLOOD COUNT 6.1 10^3/uL (4.0-10.0)
[2022-02-11 05:59] LABS: CALCIUM LEVEL 9.4 MG/DL (8.8-10.2); CREATININE FOR GFR 3.08 MG/DL (0.70-1.30); GLOMERULAR FILTRATION RATE 20.6 (>35); POTASSIUM SERUM 3.8 MEQ/L (3.5-5.1)
[2022-02-11 08:49] VITALS: BP 131/62
[2022-02-11] MEDS: ASPIRIN 81MG ENTERIC TABLET PO SCH (09:07)
[2022-02-11] MEDS: allopurinoL 100 MG TAB PO SCH (09:08)
[2022-02-11] MEDS: RIVAROXABAN 20MG TAB (XARELTO) PO SCH (09:08)
[2022-02-11] MEDS: VENLAFAXINE **XR** 75MG CAPSULE PO SCH (09:08)
[2022-02-11] MEDS: FERROUS SULFATE 325MG TAB PO SCH (09:08)
[2022-02-11] MEDS: CALCITRIOL 0.25 MCG CAP (S0169) PO SCH (09:08)
[2022-02-11] MEDS: **hydrALAZINE** 10 MG TAB PO SCH ×3 (09:08→20:01)
[2022-02-11] MEDS: TORSEMIDE 20 MG TAB PO SCH ×2 (09:08→17:03)
[2022-02-11] MEDS: CLOPIDOGREL 75 MG TAB PO SCH (09:08)
[2022-02-11 12:00] VITALS: BP 180/96
[2022-02-11] MEDS ORDERED: DEXTROSE 50% 50 ML SYRINGE IV PRN (12:35)
[2022-02-11] MEDS ORDERED: GLUCAGON INJ 1MG VIAL SC PRN (12:35)
[2022-02-11] MEDS ORDERED: amLODIPine 5 MG TAB PO ONE (12:35)
[2022-02-11] MEDS ORDERED: GLUCOSE 4GM CHEW TABLET PO PRN (12:35)
[2022-02-11] MEDS: INSULIN LISPRO (NovoLOG) PER UNIT SC SCH ×3 (13:52→20:05)
[2022-02-11 20:00] VITALS: BP 134/55
[2022-02-11] MEDS: FAMOTIDINE 20 MG TAB PO SCH (20:00)
[2022-02-11] MEDS: TEMAZEPAM 15 MG CAP PO SCH (20:01)
[2022-02-12 04:40] LABS: HEMATOCRIT 27.5 % (42.0-52.0); HEMOGLOBIN 8.3 g/dl (13.5-17.5); MEAN CORPUSCULAR HEMOGLOBIN 21.6 pg (27.0-33.0); MEAN CORPUSCULAR HGB CONC 30.2 g/dl (32.0-36.5); MEAN CORPUSCULAR VOLUME 71.6 fl (80.0-96.0); PLATELET COUNT, AUTOMATED 180 10^3/uL (150-450); RED BLOOD COUNT 3.84 10^6/uL (4.30-6.10); WHITE BLOOD COUNT 6.4 10^3/uL (4.0-10.0)
[2022-02-12 05:05] LABS: CALCIUM LEVEL 9.2 MG/DL (8.8-10.2); CREATININE FOR GFR 3.17 MG/DL (0.70-1.30); POTASSIUM SERUM 3.7 MEQ/L (3.5-5.1)
[2022-02-12 07:59] VITALS: BP 129/62
[2022-02-12] MEDS: FERROUS SULFATE 325MG TAB PO SCH (09:06)
[2022-02-12] MEDS: INSULIN LISPRO (NovoLOG) PER UNIT SC SCH ×4 (09:06→20:02)
[2022-02-12] MEDS: TORSEMIDE 20 MG TAB PO SCH (09:06)
[2022-02-12] MEDS: amLODIPine 5 MG TAB PO SCH (09:06)
[2022-02-12] MEDS: ASPIRIN 81MG ENTERIC TABLET PO SCH (09:06)
[2022-02-12] MEDS: RIVAROXABAN 20MG TAB (XARELTO) PO SCH (09:06)
[2022-02-12] MEDS: VENLAFAXINE **XR** 75MG CAPSULE PO SCH (09:07)
[2022-02-12] MEDS: CALCITRIOL 0.25 MCG CAP (S0169) PO SCH (09:07)
[2022-02-12] MEDS: **hydrALAZINE** 10 MG TAB PO SCH ×3 (09:07→20:03)
[2022-02-12] MEDS: CLOPIDOGREL 75 MG TAB PO SCH (09:07)
[2022-02-12] MEDS: allopurinoL 100 MG TAB PO SCH (09:07)
[2022-02-12] MEDS: TORSEMIDE 10 MG TABLET PO SCH (17:32)
[2022-02-12 19:30] VITALS: BP 104/62
[2022-02-12] MEDS: TEMAZEPAM 15 MG CAP PO SCH (20:02)
[2022-02-12] MEDS: FAMOTIDINE 20 MG TAB PO SCH (20:02)
[2022-02-13 05:32] LABS: HEMATOCRIT 28.5 % (42.0-52.0); HEMOGLOBIN 8.5 g/dl (13.5-17.5); MEAN CORPUSCULAR HEMOGLOBIN 21.4 pg (27.0-33.0); MEAN CORPUSCULAR HGB CONC 29.8 g/dl (32.0-36.5); MEAN CORPUSCULAR VOLUME 71.6 fl (80.0-96.0); PLATELET COUNT, AUTOMATED 198 10^3/uL (150-450); RED BLOOD COUNT 3.98 10^6/uL (4.30-6.10); WHITE BLOOD COUNT 7.4 10^3/uL (4.0-10.0)
[2022-02-13 05:59] LABS: CALCIUM LEVEL 9.1 MG/DL (8.8-10.2); CREATININE FOR GFR 3.09 MG/DL (0.70-1.30); GLOMERULAR FILTRATION RATE 20.6 (>35); POTASSIUM SERUM 3.8 MEQ/L (3.5-5.1)
[2022-02-13 07:20] VITALS: BP 135/59
[2022-02-13] MEDS: INSULIN LISPRO (NovoLOG) PER UNIT SC SCH ×4 (08:19→20:08)
[2022-02-13] MEDS: ATORVASTATIN 20 MG TAB PO SCH (08:20)
[2022-02-13] MEDS: CLOPIDOGREL 75 MG TAB PO SCH (08:21)
[2022-02-13] MEDS: amLODIPine 5 MG TAB PO SCH (08:21)
[2022-02-13] MEDS: TORSEMIDE 10 MG TABLET PO SCH ×2 (08:21→16:26)
[2022-02-13] MEDS: VENLAFAXINE **XR** 75MG CAPSULE PO SCH (08:21)
[2022-02-13] MEDS: ASPIRIN 81MG ENTERIC TABLET PO SCH (08:21)
[2022-02-13] MEDS: FERROUS SULFATE 325MG TAB PO SCH (08:21)
[2022-02-13] MEDS: allopurinoL 100 MG TAB PO SCH (08:22)
[2022-02-13] MEDS: **hydrALAZINE** 10 MG TAB PO SCH ×3 (08:22→20:28)
[2022-02-13] MEDS: CALCITRIOL 0.25 MCG CAP (S0169) PO SCH (08:22)
[2022-02-13] MEDS: RIVAROXABAN 20MG TAB (XARELTO) PO SCH (08:22)
[2022-02-13 20:00] VITALS: BP 106/46
[2022-02-13] MEDS: TEMAZEPAM 15 MG CAP PO SCH (20:27)
[2022-02-13] MEDS: FAMOTIDINE 20 MG TAB PO SCH (20:27)
[2022-02-14 05:34] LABS: HEMATOCRIT 27.5 % (42.0-52.0); HEMOGLOBIN 8.3 g/dl (13.5-17.5); MEAN CORPUSCULAR HEMOGLOBIN 21.6 pg (27.0-33.0); MEAN CORPUSCULAR HGB CONC 30.2 g/dl (32.0-36.5); MEAN CORPUSCULAR VOLUME 71.6 fl (80.0-96.0); PLATELET COUNT, AUTOMATED 187 10^3/uL (150-450); RED BLOOD COUNT 3.84 10^6/uL (4.30-6.10); WHITE BLOOD COUNT 6.7 10^3/uL (4.0-10.0)
[2022-02-14 05:55] LABS: CALCIUM LEVEL 8.8 MG/DL (8.8-10.2); CREATININE FOR GFR 2.97 MG/DL (0.70-1.30); GLOMERULAR FILTRATION RATE 21.5 (>35); POTASSIUM SERUM 3.7 MEQ/L (3.5-5.1)
[2022-02-14 07:17] VITALS: BP 145/63
[2022-02-14] MEDS: CLOPIDOGREL 75 MG TAB PO SCH (08:38)
[2022-02-14] MEDS: ASPIRIN 81MG ENTERIC TABLET PO SCH (08:38)
[2022-02-14] MEDS: FERROUS SULFATE 325MG TAB PO SCH (08:39)
[2022-02-14] MEDS: TORSEMIDE 10 MG TABLET PO SCH ×2 (08:39→16:38)
[2022-02-14] MEDS: CALCITRIOL 0.25 MCG CAP (S0169) PO SCH (08:39)
[2022-02-14] MEDS: VENLAFAXINE **XR** 75MG CAPSULE PO SCH (08:39)
[2022-02-14] MEDS: allopurinoL 100 MG TAB PO SCH (08:39)
[2022-02-14] MEDS: RIVAROXABAN 20MG TAB (XARELTO) PO SCH (08:39)
[2022-02-14] MEDS: amLODIPine 5 MG TAB PO SCH (08:40)
[2022-02-14] MEDS: **hydrALAZINE** 10 MG TAB PO SCH ×3 (08:40→21:21)
[2022-02-14] MEDS: INSULIN LISPRO (NovoLOG) PER UNIT SC SCH ×4 (08:41→21:00)
[2022-02-14 20:00] VITALS: BP 131/56
[2022-02-14] MEDS: FAMOTIDINE 20 MG TAB PO SCH (21:21)
[2022-02-14] MEDS: TEMAZEPAM 15 MG CAP PO SCH (21:22)
[2022-02-15 05:48] LABS: HEMATOCRIT 26.8 % (42.0-52.0); HEMOGLOBIN 8.2 g/dl (13.5-17.5); MEAN CORPUSCULAR HEMOGLOBIN 22.1 pg (27.0-33.0); MEAN CORPUSCULAR HGB CONC 30.6 g/dl (32.0-36.5); MEAN CORPUSCULAR VOLUME 72.2 fl (80.0-96.0); PLATELET COUNT, AUTOMATED 194 10^3/uL (150-450); RED BLOOD COUNT 3.71 10^6/uL (4.30-6.10)
[2022-02-15 06:12] LABS: CALCIUM LEVEL 8.9 MG/DL (8.8-10.2); CREATININE FOR GFR 2.94 MG/DL (0.70-1.30); GLOMERULAR FILTRATION RATE 21.8 (>35); POTASSIUM SERUM 3.6 MEQ/L (3.5-5.1)
[2022-02-15] MEDS: INSULIN LISPRO (NovoLOG) PER UNIT SC SCH ×4 (08:43→21:00)
[2022-02-15] MEDS: ATORVASTATIN 20 MG TAB PO SCH (08:44)
[2022-02-15] MEDS: ASPIRIN 81MG ENTERIC TABLET PO SCH (08:44)
[2022-02-15] MEDS: CALCITRIOL 0.25 MCG CAP (S0169) PO SCH (08:44)
[2022-02-15] MEDS: FERROUS SULFATE 325MG TAB PO SCH (08:44)
[2022-02-15] MEDS: allopurinoL 100 MG TAB PO SCH (08:44)
[2022-02-15 08:45] VITALS: BP 142/62
[2022-02-15] MEDS: CLOPIDOGREL 75 MG TAB PO SCH (08:45)
[2022-02-15] MEDS: TORSEMIDE 10 MG TABLET PO SCH ×2 (08:45→16:35)
[2022-02-15] MEDS: **hydrALAZINE** 10 MG TAB PO SCH ×3 (08:45→21:30)
[2022-02-15] MEDS: VENLAFAXINE **XR** 75MG CAPSULE PO SCH (08:45)
[2022-02-15] MEDS: RIVAROXABAN 20MG TAB (XARELTO) PO SCH (08:45)
[2022-02-15] MEDS: amLODIPine 5 MG TAB PO SCH (08:51)
[2022-02-15] MEDS ORDERED: AMOXICILLIN SUSP 250MG/5ML 100ML BOTTLE (FOR INPATIENT ORDERS) PO SCH (14:00)
[2022-02-15] MEDS: MIRALAX *UNIT DOSE* 17GM PACKET PO SCH (14:35)
[2022-02-15] MEDS: SENOKOT S TAB PO SCH ×2 (14:35→21:28)
[2022-02-15 16:51] LABS: C REACTIVE PROTEIN QUANTITATIV 3.73 MG/DL (0.00-0.30)
[2022-02-15] MEDS: AMOXICILLIN 500 MG CAP PO SCH ×2 (18:00→21:28)
[2022-02-15 18:18] LABS: URIC ACID 9.8 MG/DL (3.5-7.2)
[2022-02-15] MEDS: TEMAZEPAM 15 MG CAP PO SCH (21:28)
[2022-02-15] MEDS: DOXYCYCLINE HYCLATE 100MG TABLET PO SCH (21:28)
[2022-02-15] MEDS: FAMOTIDINE 20 MG TAB PO SCH (21:28)
[2022-02-15 21:30] VITALS: BP 168/71
[2022-02-16 03:59] VITALS: BP 123/56
[2022-02-16] MEDS: AMOXICILLIN 500 MG CAP PO SCH ×3 (06:13→21:47)
[2022-02-16 08:06] VITALS: BP 139/63
[2022-02-16] MEDS: INSULIN LISPRO (NovoLOG) PER UNIT SC SCH ×4 (08:33→21:00)
[2022-02-16] MEDS: CLOPIDOGREL 75 MG TAB PO SCH (08:34)
[2022-02-16] MEDS: TORSEMIDE 10 MG TABLET PO SCH ×2 (08:34→17:15)
[2022-02-16] MEDS: ASPIRIN 81MG ENTERIC TABLET PO SCH (08:34)
[2022-02-16] MEDS: FERROUS SULFATE 325MG TAB PO SCH (08:34)
[2022-02-16] MEDS: VENLAFAXINE **XR** 75MG CAPSULE PO SCH (08:34)
[2022-02-16] MEDS: allopurinoL 100 MG TAB PO SCH (08:34)
[2022-02-16] MEDS: RIVAROXABAN 20MG TAB (XARELTO) PO SCH (08:34)
[2022-02-16] MEDS: **hydrALAZINE** 10 MG TAB PO SCH ×3 (08:35→21:47)
[2022-02-16] MEDS: SENOKOT S TAB PO SCH ×2 (08:35→21:47)
[2022-02-16] MEDS: CALCITRIOL 0.25 MCG CAP (S0169) PO SCH (08:35)
[2022-02-16] MEDS: DOXYCYCLINE HYCLATE 100MG TABLET PO SCH ×2 (08:35→21:46)
[2022-02-16] MEDS: MIRALAX *UNIT DOSE* 17GM PACKET PO SCH (08:36)
[2022-02-16] MEDS: amLODIPine 5 MG TAB PO SCH (08:39)
[2022-02-16] MEDS ORDERED: BISACODYL 10 MG SUPP PR ONE (12:00)
[2022-02-16] MEDS: ACETAMINOPHEN TAB 650MG DOSE (2X325MG) PO PRN (13:32)
[2022-02-16 21:30] VITALS: BP 139/63
[2022-02-16] MEDS: LEVEMIR (INSULIN DETEMIR) 1 UNITS/0.01ML SC SCH (21:46)
[2022-02-16] MEDS: TEMAZEPAM 15 MG CAP PO SCH (21:46)
[2022-02-16] MEDS: FAMOTIDINE 20 MG TAB PO SCH (21:47)
[2022-02-17 06:00] LABS: HEMATOCRIT 28.9 % (42.0-52.0); HEMOGLOBIN 8.5 g/dl (13.5-17.5); MEAN CORPUSCULAR HEMOGLOBIN 21.3 pg (27.0-33.0); MEAN CORPUSCULAR HGB CONC 29.4 g/dl (32.0-36.5); MEAN CORPUSCULAR VOLUME 72.3 fl (80.0-96.0); PLATELET COUNT, AUTOMATED 201 10^3/uL (150-450); WHITE BLOOD COUNT 6.1 10^3/uL (4.0-10.0)
[2022-02-17] MEDS: AMOXICILLIN 500 MG CAP PO SCH ×3 (06:45→21:34)
[2022-02-17 07:01] LABS: C REACTIVE PROTEIN QUANTITATIV 3.77 MG/DL (0.00-0.30); CALCIUM LEVEL 9.1 MG/DL (8.8-10.2); CREATININE FOR GFR 3.08 MG/DL (0.70-1.30); GLOMERULAR FILTRATION RATE 20.6 (>35); PHOSPHORUS LEVEL 4.2 MG/DL (2.5-4.9); POTASSIUM SERUM 3.8 MEQ/L (3.5-5.1)
[2022-02-17 07:17] VITALS: BP 134/63
[2022-02-17] MEDS: MIRALAX *UNIT DOSE* 17GM PACKET PO SCH (08:42)
[2022-02-17] MEDS: FERROUS SULFATE 325MG TAB PO SCH (08:43)
[2022-02-17] MEDS: INSULIN LISPRO (NovoLOG) PER UNIT SC SCH ×4 (08:43→20:21)
[2022-02-17] MEDS: CLOPIDOGREL 75 MG TAB PO SCH (08:43)
[2022-02-17] MEDS: SENOKOT S TAB PO SCH ×2 (08:43→21:00)
[2022-02-17] MEDS: CEPHALEXIN 500 MG CAP PO SCH ×2 (08:44→21:35)
[2022-02-17] MEDS: **hydrALAZINE** 10 MG TAB PO SCH ×3 (08:44→21:34)
[2022-02-17] MEDS: CALCITRIOL 0.25 MCG CAP (S0169) PO SCH (08:44)
[2022-02-17] MEDS: RIVAROXABAN 20MG TAB (XARELTO) PO SCH (08:44)
[2022-02-17] MEDS: VENLAFAXINE **XR** 75MG CAPSULE PO SCH (08:44)
[2022-02-17] MEDS: allopurinoL 100 MG TAB PO SCH (08:44)
[2022-02-17] MEDS: TORSEMIDE 10 MG TABLET PO SCH ×2 (08:45→16:18)
[2022-02-17] MEDS: ATORVASTATIN 20 MG TAB PO SCH (08:45)
[2022-02-17] MEDS: ASPIRIN 81MG ENTERIC TABLET PO SCH (08:45)
[2022-02-17] MEDS: ACETAMINOPHEN TAB 650MG DOSE (2X325MG) PO PRN (08:46)
[2022-02-17 16:13] VITALS: BP 134/60
[2022-02-17 20:00] VITALS: BP 122/62
[2022-02-17] MEDS: TEMAZEPAM 15 MG CAP PO SCH (21:35)
[2022-02-17] MEDS: FAMOTIDINE 20 MG TAB PO SCH (21:36)
[2022-02-17] MEDS: LEVEMIR (INSULIN DETEMIR) 1 UNITS/0.01ML SC SCH (21:36)
[2022-02-18] MEDS: AMOXICILLIN 500 MG CAP PO SCH ×3 (06:28→20:26)
[2022-02-18 08:33] VITALS: BP 141/69
[2022-02-18] MEDS: VENLAFAXINE **XR** 75MG CAPSULE PO SCH (09:12)
[2022-02-18] MEDS: RIVAROXABAN 20MG TAB (XARELTO) PO SCH (09:12)
[2022-02-18] MEDS: CLOPIDOGREL 75 MG TAB PO SCH (09:13)
[2022-02-18] MEDS: CEPHALEXIN 500 MG CAP PO SCH ×2 (09:13→20:27)
[2022-02-18] MEDS: CALCITRIOL 0.25 MCG CAP (S0169) PO SCH (09:13)
[2022-02-18] MEDS: ASPIRIN 81MG ENTERIC TABLET PO SCH (09:13)
[2022-02-18] MEDS: **hydrALAZINE** 10 MG TAB PO SCH ×3 (09:13→20:27)
[2022-02-18] MEDS: FERROUS SULFATE 325MG TAB PO SCH (09:13)
[2022-02-18] MEDS: allopurinoL 100 MG TAB PO SCH (09:13)
[2022-02-18] MEDS: TORSEMIDE 10 MG TABLET PO SCH ×2 (09:13→15:49)
[2022-02-18] MEDS: SENOKOT S TAB PO SCH ×2 (09:13→20:27)
[2022-02-18] MEDS: INSULIN LISPRO (NovoLOG) PER UNIT SC SCH ×4 (09:14→20:12)
[2022-02-18] MEDS: MIRALAX *UNIT DOSE* 17GM PACKET PO SCH (09:14)
[2022-02-18 20:00] VITALS: BP 138/66
[2022-02-18] MEDS: LEVEMIR (INSULIN DETEMIR) 1 UNITS/0.01ML SC SCH (20:26)
[2022-02-18] MEDS: TEMAZEPAM 15 MG CAP PO SCH (20:27)
[2022-02-18] MEDS: FAMOTIDINE 20 MG TAB PO SCH (20:27)
[2022-02-18 21:20] VITALS: BP 100/52
[2022-02-19 04:00] VITALS: BP 98/46
[2022-02-19] MEDS: AMOXICILLIN 500 MG CAP PO SCH ×3 (05:47→21:07)
[2022-02-19] MEDS: ASPIRIN 81MG ENTERIC TABLET PO SCH (08:33)
[2022-02-19] MEDS: FERROUS SULFATE 325MG TAB PO SCH (08:33)
[2022-02-19] MEDS: CALCITRIOL 0.25 MCG CAP (S0169) PO SCH (08:34)
[2022-02-19] MEDS: RIVAROXABAN 20MG TAB (XARELTO) PO SCH (08:34)
[2022-02-19] MEDS: CLOPIDOGREL 75 MG TAB PO SCH (08:34)
[2022-02-19] MEDS: INSULIN LISPRO (NovoLOG) PER UNIT SC SCH ×4 (08:34→19:41)
[2022-02-19] MEDS: allopurinoL 100 MG TAB PO SCH (08:34)
[2022-02-19] MEDS: CEPHALEXIN 500 MG CAP PO SCH ×2 (08:34→21:07)
[2022-02-19] MEDS: MIRALAX *UNIT DOSE* 17GM PACKET PO SCH (08:35)
[2022-02-19] MEDS: **hydrALAZINE** 10 MG TAB PO SCH ×3 (08:35→21:07)
[2022-02-19] MEDS: SENOKOT S TAB PO SCH ×2 (08:35→21:07)
[2022-02-19] MEDS: TORSEMIDE 10 MG TABLET PO SCH ×2 (09:19→17:18)
[2022-02-19] MEDS: VENLAFAXINE **XR** 75MG CAPSULE PO SCH (09:19)
[2022-02-19 20:00] VITALS: BP 145/63
[2022-02-19] MEDS: LEVEMIR (INSULIN DETEMIR) 1 UNITS/0.01ML SC SCH (21:06)
[2022-02-19] MEDS: TEMAZEPAM 15 MG CAP PO SCH (21:07)
[2022-02-19] MEDS: FAMOTIDINE 20 MG TAB PO SCH (21:07)
[2022-02-20 05:06] VITALS: BP 146/64
[2022-02-20] MEDS: AMOXICILLIN 500 MG CAP PO SCH ×3 (06:28→23:53)
[2022-02-20] MEDS: TORSEMIDE 10 MG TABLET PO SCH ×2 (08:45→17:19)
[2022-02-20] MEDS: MIRALAX *UNIT DOSE* 17GM PACKET PO SCH (08:45)
[2022-02-20] MEDS: VENLAFAXINE **XR** 75MG CAPSULE PO SCH (08:46)
[2022-02-20] MEDS: CLOPIDOGREL 75 MG TAB PO SCH (08:46)
[2022-02-20] MEDS: CALCITRIOL 0.25 MCG CAP (S0169) PO SCH (08:46)
[2022-02-20] MEDS: CEPHALEXIN 500 MG CAP PO SCH ×2 (08:46→23:54)
[2022-02-20] MEDS: RIVAROXABAN 20MG TAB (XARELTO) PO SCH (08:46)
[2022-02-20] MEDS: ASPIRIN 81MG ENTERIC TABLET PO SCH (08:46)
[2022-02-20] MEDS: **hydrALAZINE** 10 MG TAB PO SCH ×3 (08:46→23:53)
[2022-02-20] MEDS: allopurinoL 100 MG TAB PO SCH (08:46)
[2022-02-20] MEDS: SENOKOT S TAB PO SCH ×2 (08:46→23:53)
[2022-02-20] MEDS: ATORVASTATIN 20 MG TAB PO SCH (08:46)
[2022-02-20] MEDS: FERROUS SULFATE 325MG TAB PO SCH (08:46)
[2022-02-20] MEDS: INSULIN LISPRO (NovoLOG) PER UNIT SC SCH ×4 (08:47→21:00)
[2022-02-20 12:00] VITALS: BP 106/76
[2022-02-20 23:47] VITALS: BP 168/72
[2022-02-20] MEDS: FAMOTIDINE 20 MG TAB PO SCH (23:54)
[2022-02-20] MEDS: TEMAZEPAM 15 MG CAP PO SCH (23:54)
[2022-02-20] MEDS: LEVEMIR (INSULIN DETEMIR) 1 UNITS/0.01ML SC SCH (23:56)
[2022-02-21 00:02] VITALS: BP 142/62
[2022-02-21 06:00] VITALS: BP 158/80
[2022-02-21] MEDS: AMOXICILLIN 500 MG CAP PO SCH (06:38)
[2022-02-21] MEDS: allopurinoL 100 MG TAB PO SCH (08:24)
[2022-02-21] MEDS: ASPIRIN 81MG ENTERIC TABLET PO SCH (08:24)
[2022-02-21] MEDS: CEPHALEXIN 500 MG CAP PO SCH (08:24)
[2022-02-21] MEDS: SENOKOT S TAB PO SCH (08:24)
[2022-02-21] MEDS: CALCITRIOL 0.25 MCG CAP (S0169) PO SCH (08:24)
[2022-02-21] MEDS: VENLAFAXINE **XR** 75MG CAPSULE PO SCH (08:24)
[2022-02-21] MEDS: RIVAROXABAN 20MG TAB (XARELTO) PO SCH (08:24)
[2022-02-21] MEDS: CLOPIDOGREL 75 MG TAB PO SCH (08:24)
[2022-02-21] MEDS: INSULIN LISPRO (NovoLOG) PER UNIT SC SCH ×2 (08:25→12:25)
[2022-02-21] MEDS: MIRALAX *UNIT DOSE* 17GM PACKET PO SCH (08:25)
[2022-02-21] MEDS: FERROUS SULFATE 325MG TAB PO SCH (08:25)
[2022-02-21] MEDS: TORSEMIDE 10 MG TABLET PO SCH (08:25)
[2022-02-21 08:32] VITALS: BP 140/65
[2022-02-21] MEDS: **hydrALAZINE** 10 MG TAB PO SCH (08:32)
[2022-02-21 08:33] VITALS: BP 140/65
[2022-02-21] MEDS ORDERED: SENN-52 PO (10:09)
[2022-02-21] MEDS ORDERED: DOXY-350 PO (10:09)
[2022-02-21] MEDS ORDERED: TORS10TA3 PO (10:09)
[2022-02-21] MEDS ORDERED: CEFD300C41 PO (10:09)
[2022-02-21] MEDS ORDERED: MIRA1POW3 PO (10:09)
[2022-02-21] MEDS ORDERED: FAMO20TA PO (10:09)
== END 2022-02-21 13:59 | DRG 563 ==
LOC: EDBD 11:30 → M ED 11:30 → M ED INP 15:31 → ENRESERV 17:24 → M PCU 18:35 → M 4MAIN 02-18 21:19
PROVIDERS: ADMIT Internal Medicine; ATTEND Internal Medicine
PROC: 0HQKXZZ Repair Right Lower Leg Skin, External Approach (ICD-10-PCS; 2022-02-08)
PROC: 0PSDXZZ Reposition Left Humeral Head, External Approach (ICD-10-PCS; principal; 2022-02-08 14:45)
DX: S43.032A Inferior subluxation of left humerus, initial encounter (principal); I50.22 Chronic systolic (congestive) heart failure; I13.0 Hypertensive heart and chronic kidney disease with heart failure and stage 1 through stage 4 chronic kidney disease, or unspecified chronic kidney disease; N18.4 Chronic kidney disease, stage 4 (severe); Z68.43 Body mass index [BMI] 50.0-59.9, adult; N25.81 Secondary hyperparathyroidism of renal origin; W18.30XA Fall on same level, unspecified, initial encounter; Y92.019 Unspecified place in single-family (private) house as the place of occurrence of the external cause; Y93.89 Activity, other specified; Y99.8 Other external cause status; Z66 Do not resuscitate; I25.10 Atherosclerotic heart disease of native coronary artery without angina pectoris; I25.2 Old myocardial infarction; I48.91 Unspecified atrial fibrillation; E78.5 Hyperlipidemia, unspecified; E11.22 Type 2 diabetes mellitus with diabetic chronic kidney disease; D50.9 Iron deficiency anemia, unspecified; N28.89 Other specified disorders of kidney and ureter; D63.1 Anemia in chronic kidney disease; M10.9 Gout, unspecified; G47.33 Obstructive sleep apnea (adult) (pediatric); S81.011A Laceration without foreign body, right knee, initial encounter; S80.01XA Contusion of right knee, initial encounter; E66.01 Morbid (severe) obesity due to excess calories; F32.A Depression, unspecified; Z85.46 Personal history of malignant neoplasm of prostate; F17.290 Nicotine dependence, other tobacco product, uncomplicated; E87.5 Hyperkalemia; Z74.09 Other reduced mobility; Z79.82 Long term (current) use of aspirin; Z79.02 Long term (current) use of antithrombotics/antiplatelets; Z79.84 Long term (current) use of oral hypoglycemic drugs; Z79.01 Long term (current) use of anticoagulants; Z79.899 Other long term (current) drug therapy; Z88.0 Allergy status to penicillin

== ENCOUNTER → 2022-02-23 | Outpatient (REF) ==
[~2022-02-23] MED LIST changes: +ALLO100T PO; +ASPI81TA26 PO; +CALC1CAP31 PO; +CEFD300C41 PO; +DOXY-350 PO; +FAMO20TA PO; +FAMO40TA3 PO; +GLIP5TAB20 PO; +HYDR10TAB PO; +ISOS10TA3 PO; +MIRA1POW3 PO; +NITR0.4S14 SL; +SENN-52 PO; +SPIR50TA4 PO; +TORS10TA3 PO
[2022-02-23 10:43] LABS: CALCIUM LEVEL 9.2 MG/DL (8.8-10.2); CREATININE FOR GFR 2.72 MG/DL (0.70-1.30); GLOMERULAR FILTRATION RATE 23.8 (>35); POTASSIUM SERUM 3.3 MEQ/L (3.5-5.1)
[2022-02-23 13:15] LABS: HEMATOCRIT 27.7 % (42.0-52.0); HEMOGLOBIN 8.3 g/dl (13.5-17.5); MEAN CORPUSCULAR VOLUME 73.3 fl (80.0-96.0); PLATELET COUNT, AUTOMATED 168 10^3/uL (150-450); RED BLOOD COUNT 3.78 10^6/uL (4.30-6.10); WHITE BLOOD COUNT 5.9 10^3/uL (4.0-10.0)
[2022-02-23 13:31] LABS: INR 2.25; PROTHROMBIN TIME 25.3 SECONDS (12.7-14.5)
[2022-02-23 13:33] LABS: PARTIAL THROMBOPLASTIN TIME 59.6 SECONDS (25.9-37.0)
[2022-02-23 13:41] LABS: COLLAGEN EPINEPHRINE 175 SECONDS (74-162)
[2022-02-23 14:10] LABS: COLLAGEN ADP > 300 SECONDS (56-103)
== END ==
LOC: SKLAB4 14:20
PROVIDERS: ATTEND Neuromusculoskeletal Medicine & OMM
DX: E11.9 Type 2 diabetes mellitus without complications (principal); I50.9 Heart failure, unspecified

== ENCOUNTER → 2022-02-24 | Outpatient (REF) | payer MEDICARE, BC ==
[2022-02-24 10:10] LABS: HEMATOCRIT 29.6 % (42.0-52.0); HEMOGLOBIN 8.7 g/dl (13.5-17.5)
== END ==
LOC: SKLAB4 07:13
PROVIDERS: ATTEND Neuromusculoskeletal Medicine & OMM
DX: E11.9 Type 2 diabetes mellitus without complications (principal); Z79.899 Other long term (current) drug therapy

== ENCOUNTER → 2022-03-03 | Outpatient (REF) ==
[2022-03-02 11:19] LABS: CALCIUM LEVEL 9.8 MG/DL (8.8-10.2); CREATININE FOR GFR 2.68 MG/DL (0.70-1.30); GLOMERULAR FILTRATION RATE 24.2 (>35); POTASSIUM SERUM 4.1 MEQ/L (3.5-5.1)
== END ==
LOC: SKLAB4 08:07
PROVIDERS: ATTEND Nurse Practitioner Family
DX: I25.10 Atherosclerotic heart disease of native coronary artery without angina pectoris (principal); I48.91 Unspecified atrial fibrillation

== ENCOUNTER → 2022-03-09 | Outpatient (REF) ==
[2022-03-09 13:57] LABS: CREATININE FOR GFR 2.35 MG/DL (0.70-1.30); GLOMERULAR FILTRATION RATE 28.1 (>35); POTASSIUM SERUM 3.9 MEQ/L (3.5-5.1)
== END ==
LOC: SKLAB4 14:23
PROVIDERS: ATTEND Nurse Practitioner Family
DX: I10 Essential (primary) hypertension (principal)